=== PATIENT | female | born 1980 | race African-American/Black ===

== ENCOUNTER 2018-09-04 20:19 | Inpatient (IN) ==
[2018-09-04 21:07] LABS: BASO# 0.02 X1000 (0.0-0.2); BASO% 0.4 % (0.0-0.8); EOS# 0.02 X1000 (0.0-0.7); EOS% 0.4 % (0.0-10.0); HEMATOCRIT 35.8 % (37.0-47.0); HEMOGLOBIN 11.9 g/dL (12.0-16.0); IMM GRAN# 0.02 X1000 (0.0-0.04); IMM GRAN% 0.4 % (0.0-0.5); LYMPH% 17.7 % (20.5-51.1); MCH 32.5 PG (27-31); MCHC 33.2 g/dL (33-37); MCV 97.8 FL (81-99); MONO# 0.89 X1000 (0.11-0.59); MONO% 15.7 % (1.7-9.3); MPV 9.5 FL (7.4-10.4); NEUT# 3.71 X1000 (1.4-6.5); NEUT% 65.4 % (42.2-75.2); PLT 385 X1000 (130-400); RBC 3.66 XMIL (4.2-5.4); WBC 5.66 X1000 (4.8-10.8)
[2018-09-04 21:41] LABS: AGAP 19; ALB/GLOB RATIO 0.9; ALBUMIN 3.1 g/dL (3.5-5.0); ALKALINE PHOSPHATASE 163 U/L (32-104); BUN 5 mg/dL (8-22); CALCIUM 9.2 mg/dL (8.8-10.2); CHLORIDE 103 mmol/L (98-107); COSMO 287; CREATININE 0.5 mg/dL (0.5-0.9); ESTIMATED GFR > 60; GLUCOSE 126 mg/dL (70-104); GOT 76 U/L (10-30); GPT 79 U/L (10-36); SODIUM 145 mmol/L (136-145); TCO2 23 mmol/L (25-35); TOTAL BILIRUBIN 0.67 mg/dL (0.20-1.00); TOTAL PROTEIN 6.5 g/dL (6.3-8.3)
[2018-09-04 21:44] LABS: POTASSIUM 2.4 mmol/L (3.5-5.1)
[2018-09-04] MEDS ORDERED: NS + KCL 40 MEQ 1,000 ML IV ONE (21:47)
[2018-09-05 06:30] LABS: URINE SOURCE CATH
--- NOTE | 2018-09-05 06:38 | PROVIDER DOCUMENTATION ---
This chart was entered by Roseline Constantino Scribe, acting as scribe for Jonathan Payton DO. HPI-Psychological Disorder - General Chief Complaint: Altered Mental Status Stated Complaint: uti/ams Time Seen by Provider: 09/04/18 21:30 Source: patient Allergies/Adverse Reactions: Patient Allergies Allergy/AdvReac Type Severity Reaction Status Date / Time codeine AdvReac ITCHING Verified 05/23/18 10:30 Home Medications: Home Medication List Medication Instructions Recorded Confirmed Last Taken Type Gabapentin 300 mg PO DAILY 08/05/17 05/23/18 2 Days Ago History ~08/03/17 Hydrocodone/APAP 5 mg/325 mg 1 ea PO Q6H PRN PRN #6 tab 08/05/17 05/23/18 Unknown Rx [[place]-5] Lisinopril 10 mg PO DAILY 08/05/17 05/23/18 08/04/17 History Permethrin 5% Cream [Elimite 5% 2 applicatn TOP ONCE #2 tube 08/05/17 05/23/18 Unknown Rx Cream] Clobetasol Propionate/Emoll 60 gm TP BID #1 cream..g. 02/18/18 05/23/18 Unknown Rx [Clobetasol Emollient 0.05% Crm] Prednisone 10 mg PO BID #20 tab 05/23/18 Unknown Rx Cephalexin [Keflex] 500 mg PO BID #14 cap 08/30/18 Unknown Rx Ciprofloxacin [Cipro] 250 mg PO BID #10 tab 09/05/18 Unknown Rx - History of Present Illness-Psych Nature of Presenting Problem: 38 yo f presents w/mother w/co mother is main historian. pt is confused all the time. pt started yelling, became scared last night. pt is an alcoholic and gets alcohol from father and grandfather. pt quit walking last week and before she quit walking she was taking higher, small steps like a child. pt treated for similar symptoms before. pt sees at [facility] and hasn't been in 2 months. pt mother also states pt is getting worse. pt oriented to who she is, mother, and her age but not oriented to time and who president is. mother also states she was yelling at people in her house to move who weren't beside her. Timing: reports: still present Review of Systems - Adult - REVIEW OF SYSTEMS - ADULT Constitutional: reports: no symptoms reported Eyes: reports: no symptoms reported Ears, Nose, Mouth & Throat: reports: no symptoms reported Cardiovascular: reports: no symptoms reported Respiratory: reports: no symptoms reported Gastrointestinal: reports: no symptoms reported Genitourinary: reports: no symptoms reported Musculoskeletal: reports: no symptoms reported Integumentary: reports: no symptoms reported Neurological: reports: no symptoms reported Psychiatric: reports: see HPI, alcohol/drug dependence, other (ams/confusion). denies: panic attacks, suicidal thoughts Endocrine: reports: no symptoms reported Hematologic/Lymphatic: reports: no symptoms reported Allergic/Immunologic: reports: no symptoms reported All Other Systems: Reviewed and Negative Past History - Adult - PAST MEDICAL HISTORY-ADULT Review of Records: reports: Old Records Reviewed, Nursing Assessment Review, Medications Reviewed, Social history reviewed & non-contributory. Major Childhood Illnesses: reports: denies history Cardiovascular: reports: CHF, HTN Respiratory: reports: denies history Gastrointestinal: reports: denies history Obstetrical/Gynecological: reports: denies history Genitourinary: reports: denies history Musculoskeletal: reports: denies history Neurological: reports: denies history Endocrine/Immune: reports: denies history Other Conditions: reports: denies history - PRIOR SURGERIES/PROCEDURES Surgical/Procedure History: reports: BTL, - IMMUNIZATION STATUS Childhood Immunizations: See Nurse Assessment Flu Vaccine: See Nurse Assessment - FAMILY HISTORY Family History: reviewed, not pertinent - SOCIAL HISTORY Smoking: cigarettes, less than 1 pack/day Provider spent 3-5 mins advising pt. on dangers of tobacco.: Discussed manners to quit use, and f/u contacts for add'l counseling. Substance Use: alcohol Alcohol Use Frequency: every day Physical Exam-Psych Focus - Physical Exam-Psych Initial Vital Signs Reviewed: Yes Appearance: appropriate appearance, no apparent distress, impaired insight, impaired recent memory, impaired remote memory, slow to respond. negative: appropriate insight, no memory impairment, anxious, combative, disheveled Neurological: alert, normal mood/affect, calm, disoriented x 3. negative: oriented x 3, agitated, anxious, depressed affect Behavior/Eye Contact/Speech: cooperative, normal speech, avoids eye contact, decreased rate of speech. negative: good eye contact, refused to answer, threatening eye contact, increased rate of speech, belligerent Thoughts/Hallucinations: normal thought pattern, no apparent hallucination, auditory hallucinations. negative: flight of ideas, grandiose, incoherent, tactile hallucinations, visual hallucinations HENMT: normocephalic/atraumatic, moist mucous membranes, normal ENT inspection Neck: non-tender, full range of motion, supple, normal inspection Respiratory: chest non-tender, lungs clear, normal breath sounds Cardiovascular: normal peripheral pulses, regular rate, rhythm Abdominal Exam: normal bowel sounds, non tender, soft Lymphatic: no adenopathy Back Exam: normal inspection, no CVA tenderness, no vertebral tenderness Extremity: normal range of motion, non-tender, normal inspection Integumentary: normal color, normal turgor, warm/dry Progress - PLAN OF CARE/RESULTS Progress/Plan/Lab Results: Vital Signs - 8 hr 09/04/18 23:00 09/04/18 23:10 09/04/18 23:20 Pulse Rate 63 64 74 Respiratory Rate 14 12 15 O2 Sat by Pulse Oximetry 100 100 09/04/18 23:30 09/04/18 23:40 09/04/18 23:50 Pulse Rate 74 77 68 Respiratory Rate 13 19 16 O2 Sat by Pulse Oximetry 93 L 100 09/05/18 00:00 09/05/18 00:10 09/05/18 00:20 Pulse Rate 69 62 67 Respiratory Rate 17 12 14 O2 Sat by Pulse Oximetry 09/05/18 00:30 09/05/18 00:40 09/05/18 00:50 Pulse Rate 62 79 83 Respiratory Rate 19 14 16 O2 Sat by Pulse Oximetry 85 L 09/05/18 01:00 09/05/18 01:10 09/05/18 01:20 Pulse Rate 94 H 85 84 Respiratory Rate 20 21 26 H O2 Sat by Pulse Oximetry 09/05/18 01:30 09/05/18 01:40 09/05/18 01:57 Pulse Rate 79 84 76 Respiratory Rate 14 20 10 L O2 Sat by Pulse Oximetry 09/05/18 02:00 09/05/18 02:10 09/05/18 02:20 Pulse Rate 68 65 58 L Respiratory Rate 17 13 23 O2 Sat by Pulse Oximetry 100 100 09/05/18 02:30 09/05/18 02:40 09/05/18 02:50 Pulse Rate 71 63 61 Respiratory Rate 16 14 13 O2 Sat by Pulse Oximetry 100 09/05/18 03:00 09/05/18 03:10 09/05/18 03:20 Pulse Rate 65 90 61 Respiratory Rate 24 23 24 O2 Sat by Pulse Oximetry 100 99 09/05/18 03:30 09/05/18 03:40 09/05/18 03:50 Pulse Rate 66 65 53 L Respiratory Rate 23 16 15 O2 Sat by Pulse Oximetry 99 98 100 09/05/18 04:00 09/05/18 04:10 09/05/18 04:20 Pulse Rate 72 75 79 Respiratory Rate 19 20 O2 Sat by Pulse Oximetry 100 100 100 09/05/18 04:30 09/05/18 04:40 09/05/18 04:50 Pulse Rate 70 70 65 Respiratory Rate 15 23 14 O2 Sat by Pulse Oximetry 100 100 98 09/05/18 05:00 09/05/18 05:10 09/05/18 05:20 Pulse Rate 70 72 71 Respiratory Rate 17 15 15 O2 Sat by Pulse Oximetry 99 09/05/18 05:30 09/05/18 05:40 Pulse Rate 71 74 Respiratory Rate 16 23 O2 Sat by Pulse Oximetry 100 Laboratory Results - last 24 hr 09/04/18 09/04/18 09/04/18 20:50 20:50 20:50 WBC 5.66 RBC 3.66 L Hgb 11.9 L Hct 35.8 L MCV 97.8 MCH 32.5 H MCHC 33.2 RDW Std Deviation 14.0 Plt Count 385 MPV 9.5 Immature Gran % (Auto) 0.4 Neut % (Auto) 65.4 Lymph % (Auto) 17.7 L [place] % (Auto) 15.7 H Eos % (Auto) 0.4 Baso % (Auto) 0.4 Immature Gran # (Auto) 0.02 Neut # (Auto) 3.71 Lymph # (Auto) 1.00 L [place] # (Auto) 0.89 H Eos # (Auto) 0.02 Baso # (Auto) 0.02 Sodium 145 Potassium 2.4 L* Chloride 103 Carbon Dioxide 23 L Anion Gap 19 BUN 5 L Creatinine 0.5 Estimated GFR/1.73 m2 > 60 BUN/Creatinine Ratio 10 Glucose 126 H Calculated Osmolality 287 Calcium 9.2 Total Bilirubin 0.67 AST 76 H ALT 79 H Alkaline Phosphatase 163 H Ammonia 21 Total Protein 6.5 Albumin 3.1 L Globulin 3.4 Albumin/Globulin Ratio 0.9 Urine Source Urine Color Urine Turbidity Urine pH Ur Specific [place] Urine Protein Ur Glucose (Stick) Ur Ketones (Stick) Urine Blood Urine Nitrite Urine Bilirubin Urobilinogen Dipstick Urine Leukocytes Urine WBC (Auto) Urine RBC (Auto) U Epithel Cells (Auto) Urine Bacteria (Auto) Plasma/Serum Ethyl Alc 09/04/18 09/05/18 09/05/18 20:50 02:15 05:50 WBC RBC Hgb Hct MCV MCH MCHC RDW Std Deviation Plt Count MPV Immature Gran % (Auto) Neut % (Auto) Lymph % (Auto) [place] % (Auto) Eos % (Auto) Baso % (Auto) Immature Gran # (Auto) Neut # (Auto) Lymph # (Auto) [place] # (Auto) Eos # (Auto) Baso # (Auto) Sodium Potassium 2.8 L D 2.7 L Chloride Carbon Dioxide Anion Gap BUN Creatinine Estimated GFR/1.73 m2 BUN/Creatinine Ratio Glucose Calculated Osmolality Calcium Total Bilirubin AST ALT Alkaline Phosphatase Ammonia Total Protein Albumin Globulin Albumin/Globulin Ratio Urine Source Urine Color Urine Turbidity Urine pH Ur Specific [place] Urine Protein Ur Glucose (Stick) Ur Ketones (Stick) Urine Blood Urine Nitrite Urine Bilirubin Urobilinogen Dipstick Urine Leukocytes Urine WBC (Auto) Urine RBC (Auto) U Epithel Cells (Auto) Urine Bacteria (Auto) Plasma/Serum Ethyl Alc 09/05/18 06:00 WBC RBC Hgb Hct MCV MCH MCHC RDW Std Deviation Plt Count MPV Immature Gran % (Auto) Neut % (Auto) Lymph % (Auto) [place] % (Auto) Eos % (Auto) Baso % (Auto) Immature Gran # (Auto) Neut # (Auto) Lymph # (Auto) [place] # (Auto) Eos # (Auto) Baso # (Auto) Sodium Potassium Chloride Carbon Dioxide Anion Gap BUN Creatinine Estimated GFR/1.73 m2 BUN/Creatinine Ratio Glucose Calculated Osmolality Calcium Total Bilirubin AST ALT Alkaline Phosphatase Ammonia Total Protein Albumin Globulin Albumin/Globulin Ratio Urine Source CATH Urine Color ORANGE Urine Turbidity TURBID Urine pH 6.0 Ur Specific [place] 1.031 Urine Protein 100 A Ur Glucose (Stick) NEGATIVE Ur Ketones (Stick) 10 A Urine Blood NEGATIVE Urine Nitrite NEGATIVE Urine Bilirubin SMALL A Urobilinogen Dipstick 4 A Urine Leukocytes LARGE A Urine WBC (Auto) TNTC A Urine RBC (Auto) <10 U Epithel Cells (Auto) <10 Urine Bacteria (Auto) NEGATIVE Plasma/Serum Ethyl Alc Orders Category Date Time Status ALCOHOL BLOOD Stat Lab 09/04/18 20:50 Completed AMMONIA [CHEM] Stat Lab 09/04/18 20:50 Completed CBC WITH DIFF [HEME] Stat Lab 09/04/18 20:50 Completed COMPREHENSIVE METABOLIC PANEL [CHEM] Stat Lab 09/04/18 20:50 Completed POTASSIUM [CHEM] Stat Lab 09/05/18 02:15 Completed POTASSIUM [CHEM] Stat Lab 09/05/18 05:50 Completed UA NIMS W/REFLEX CULT [URINALYSIS] Stat Lab 09/05/18 06:00 Completed Ns + KCl 40 Meq 1,000 ml Med 09/04/18 21:47 Discontinued IV 250 mls/hr Potassium Chloride E.r. [Klor-Con] Med 09/05/18 06:54 Discontinued 40 meq PO NOW ONE EKG [EKG] Stat Ther 09/04/18 20:53 Ordered Result Diagrams: 09/04/18 20:50 09/05/18 05:50 - REASSESSMENT Reassessment #1 Time Reassessed: 23:23 Status: unchanged - EKG 1 Time of EKG reading by physician:: 21:46 EKG Read and Signed by:: Jonathan Payton EKG Interpretation (*Must complete 3 of following elements*): Abnormal Rate: 65 (poss anterior infarct, age undetermined) Rhythm: SR w/Short AR QRS: other (prolonged QT) AR Interval: shortened ST Wave: non-specific ST changes (ST&T wave abnormality, consider inferolateral ischemia) Departure - Departure Date of Disposition Decision: 09/05/18 Time of Disposition Decision: 06:55 DIAGNOSIS: UTI (urinary tract infection), Hypokalemia Disposition: HOME 01 Certified Medical Emergency: Emergent Condition: Stable Prescriptions: Ciprofloxacin [Cipro] 250 mg PO BID #10 tab Referrals and Follow-Ups: None,PCP [Primary Care Provider] - Discharge Education: Steps to Quit Smoking, [id number] - Critical Care Note This patient required my direct & personal management of CC.: No Attestation - Physician/ SILVESTRE Attestation Patient care was provided by Advanced Practice Provider:: No The physician spent face to face time with patient:: Yes Advanced Practice Provider documentation review:: Supervising physician onsite and consulted in the evaluation and care of this patient. The physician did have a face to face encounter with the patient. This chart was documented by the indicated scribe, (Roseline Constantino Scribe) and accurately reflects the services I performed and decisions made by , Jonathan Payton DO, as attested by the provider's signature.
[2018-09-05 06:46] LABS: BILIRUBIN URINE SMALL (NEGATIVE); BLOOD URINE NEGATIVE (NEGATIVE); COLOR ORANGE; GLUCOSE URINE NEGATIVE (NEGATIVE); KETONE URINE 10 mg/dL (NEGATIVE); LEUKOCYTES URINE LARGE (NEGATIVE); NITRITE URINE NEGATIVE (NEGATIVE); PROTEIN URINE 100 mg/dL (NEGATIVE); SP GRAVITY URINE 1.031; TURBIDITY URINE TURBID (CLEAR); UROBILINOGEN URINE 4 mg/dL (NORMAL)
[2018-09-05 06:48] LABS: UR EPITHELIAL CELLS <10 /HPF (<10); URINE BACTERIA NEGATIVE /HPF; URINE RBC <10 /HPF (<10); URINE WBC TNTC /HPF (<10)
[2018-09-05] MEDS ORDERED: KLOR-CON PO ONE (06:54)
[2018-09-05 09:44] LABS: UR AMPHETAMINES QUAL NONE DETECTED (NONE DETECT); UR BARBITUATES QUAL NONE DETECTED (NONE DETECT); UR BENZODIAZEPIN QUAL NONE DETECTED (NONE DETECT); UR CANNABINOIDS QUAL NONE DETECTED (NONE DETECT); UR COCAINE QUAL NONE DETECTED (NONE DETECT); UR METHADONE QUAL NONE DETECTED (NONE DETECT); UR OPIATES QUAL NONE DETECTED (NONE DETECT); UR OXYCODONE QUAL NONE DETECTED (NONE DETECT); UR PCP QUAL NONE DETECTED (NONE DETECT)
[2018-09-05] MEDS ORDERED: THIAMINE 500 MG in NS 50 ML IV ONE (10:59)
--- NOTE | 2018-09-05 11:12 | Diag Imaging Result Doc PS360 ---
EXAM: CHEST-PORTABLE INDICATION: ams TECHNIQUE: One view COMPARISON: 01/29/2018 FINDINGS: The lungs are grossly clear. There is no discrete pleural fluid collection or pneumothorax. The cardiac silhouette appears prominent, likely, at least in part, due to magnification from AP technique. Central vasculature is unremarkable. IMPRESSION: Mildly prominent cardiac silhouette. No definite acute pathology, otherwise. Electronically signed by Omega Constantino 09/05/2018 11:10 AM
[2018-09-05] MEDS ORDERED: NS 1,000 ML IV ONE (11:15)
--- NOTE | 2018-09-05 11:59 | HISTORY AND PHYSICAL ---
PRIMARY CARE PHYSICIAN: Unknown. CHIEF COMPLAINT: Altered mental status. HISTORY OF PRESENT ILLNESS: Ms. Billy is a 38-year-old female with a history of chronic alcohol dependence, who was brought in by her family for 2 weeks of progressively worsening mental status. Ms. Billy has had an episode like this last year at which time she went to [facility], per her family's report, at which time she had extensive workup, but no concrete diagnosis was found. She continued to drink after that discharge and drinks about a pint a day per her family's report; however, around 2 weeks ago, her mother took away her alcohol, and this coincided with her symptoms of encephalopathy. She has become increasingly confused, speaking nonsensically at times and at other times having paranoid delusions, picking at her skin and in the air. They said she has had more of an ataxic gait, and they brought her in today for evaluation. She was actually here last week for the same, was diagnosed with a urinary tract infection and sent home with antibiotics. They report symptoms have not improved at all with antibiotics. In the ER today, she had a head CT done which did not show anything acute. Her urine still shows UTI. There was trichomonas in her urine from last week's ER admission. She also has a mild elevated anion gap metabolic acidosis and elevation in her liver function tests. Her vitals are stable. Given the above, we will admit her for further treatment and evaluation. PAST MEDICAL HISTORY: 1. Chronic alcoholism. 2. Relapsing episodes of confusion and altered mental status. 3. Nicotine dependence. 4. Alcohol dependence. 5. Severe eczema. PAST SURGICAL HISTORY: She has had section, tubal ligation and right ear surgery as a child. SOCIAL HISTORY: She is not . She has 2 children. She is on disability. The family says she smokes around 3 cigarettes a day. Drinks at least a pint of liquor a day and has done so for the last couple of years. She started drinking when she was 19. They deny that she uses any type of illicit drugs. ALLERGIES: Codeine. HOME MEDICATIONS: Keflex from last week's ER admission. REVIEW OF SYSTEMS: Unable to obtain. PHYSICAL EXAMINATION: VITAL SIGNS: Blood pressure is 126/101, heart rate 87, respiratory rate 18, O2 saturation is 98% on room air. Temperature is 98.6. GENERAL: This is a chronically ill, disheveled and malnourished appearing 38-year-old female who appears older than stated age, lying in hospital bed in no acute distress. NEUROLOGICAL: The patient is clearly encephalopathic with confusion, ataxia and what appears to be oculomotor dysfunction, at times her eye rolling back in her head. She gazes for long periods at a time and will not follow pen light with her eyes. She does squeeze her hands and push her feet against resistance. There is overall generalized weakness at 4/5 muscle strength. She has clear deficiency in random alternating movements and fine motor movements. She is disoriented to everything except her name, she even thinks that her mother, who is sitting at the bedside, is her cousin. There is no facial droop or asymmetry. She does stick her tongue out. There is no smoothness of the tongue. Her shoulder shrug is 4/5 but equal bilaterally. She does have mild tremor of the hands in almost an asterixis type movement. HEENT: Head is atraumatic and normocephalic. Her pupils are pinpoint bilaterally. Her oral mucosa is moist. NECK: Trachea is midline. There is no JVD. CHEST: Diminished but clear to auscultation. CARDIOVASCULAR: Regular rate and rhythm. S1 and S2 noted. GASTROINTESTINAL: Soft, nondistended. She does have some grimace to deep palpation of the right upper quadrant. EXTREMITIES: There is no edema. Pulses are 1+ bilaterally. SKIN: In general, very dry, cracking, with multiple lesions about the body, mostly in the arms and legs, consistent with her history of eczema. PSYCHIATRIC: Inappropriate and withdrawn affect. DIAGNOSTIC DATA: Head CT is negative for acute process. Chest x-ray does not show anything acute. WBC is 5.66, hemoglobin 11.9, hematocrit 35.8, platelet count 385. Sodium is 145, potassium 2.7, chloride 103, CO2 is 23, anion gap is 19, BUN is 5, creatinine 0.5, glucose 126, calcium 9.2. Total bilirubin is 0.67, AST is 76, ALT is 79, alkaline phosphatase is 163. Ammonia is 21. Albumin 3.1. UA shows large leukocytes and TNTC WBCs. Toxicology is negative. Alcohol level is zero. ASSESSMENT AND PLAN: 1. Toxic metabolic encephalopathy. First concern would be for Wernicke encephalopathy. We will go ahead and give her 500 mg of IV thiamine now and do a comprehensive metabolic screening with thyroid function, B12, folate, HIV and hepatitis screen. Check an RPR and comprehensive iron studies. We will consult Neurology and possibly Psychiatry. If Wernicke encephalopathy is her diagnosis, we should start to see improvement in functioning with the administration of thiamine. We will continue with banana bag daily. 2. Hypokalemia. We will check magnesium and phosphorus, replace appropriately and check daily. 3. Urinary tract infection. Continue Rocephin. There was also trichomonas noted in the urine from last week. We will make sure and start her on Flagyl. 4. Alcohol and nicotine dependence. Will discuss cessation with her once she is more stable. 5. DVT prophylaxis with SCD TEDs. Further recommendations to follow. Dictated by RAE Ibrahim for Caroline Rivero MD cc: RAE Ibrahim MD I performed a face to face encounter on the patient. I reviewed all labs and imaging on the patient. I agree with the H&P as dictated. The patient has an extensive history of alcohol dependence. She currently is lethargic and unable to answer questions. Will admit her with a diagnosis of metabolic encephalopathy. Will proceed with the plan as outlined above. ADAND
[2018-09-05 12:03] LABS: INR 0.86; PROTIME 12.4 Seconds (11.0-16.0)
[2018-09-05 12:13] LABS: ACETONE SERUM NEGATIVE (NEGATIVE)
[2018-09-05 12:22] LABS: MAGNESIUM 1.8 mg/dL (1.5-2.7); PHOSPHORUS 3.2 mg/dL (2.7-4.5)
[2018-09-05 12:26] LABS: ALB/GLOB RATIO 0.9; ALBUMIN 2.9 g/dL (3.5-5.0); ALKALINE PHOSPHATASE 147 U/L (32-104); BUN 5 mg/dL (8-22); CALCIUM 8.8 mg/dL (8.8-10.2); CREATININE 0.5 mg/dL (0.5-0.9); ESTIMATED GFR > 60; GLUCOSE 98 mg/dL (70-104); GOT 87 U/L (10-30); GPT 80 U/L (10-36); IRON SATURATION 45 %; TCO2 24 mmol/L (25-35); TIBC 128 ug/dL; TOTAL BILIRUBIN 0.63 mg/dL (0.20-1.00); TOTAL IRON 58 ug/dL (49-151); UNBOUND IRON 70 ug/dL (112-346)
[2018-09-05 12:27] LABS: ACETAMINOPHEN < 1.2 ug/mL (10-30); SALICYLATES < 3.00 mg/dL (3-10)
[2018-09-05 12:33] LABS: CHLORIDE 108 mmol/L (98-107); POTASSIUM 2.6 mmol/L (3.5-5.1); SODIUM 147 mmol/L (136-145)
[2018-09-05 12:36] LABS: AGAP 15; COSMO 290
--- NOTE | 2018-09-05 12:39 | Diag Imaging Result Doc PS360 ---
EXAM: US ABDOMEN-COMPLETE INDICATION: etoh, eval liver COMPARISON: None. FINDINGS: The gallbladder appears normal with no stones, wall thickening, or pericholecystic fluid. The common bile duct is normal in diameter. Sonographic Louise's sign was reported to be negative. The echotexture of the liver is somewhat increased suggesting hepatic steatosis. No discrete hepatic mass is identified. Portal venous flow is hepatopetal. The pancreas is partially obscured. The visualized portion is unremarkable. The aorta and IVC are grossly unremarkable. The spleen is unremarkable. The kidneys are grossly unremarkable. IMPRESSION: Suggestion of hepatic steatosis. Unremarkable abdominal ultrasound, otherwise. Electronically signed by Omega Constantino 09/05/2018 12:37 PM
[2018-09-05 12:52] LABS: FREE T4 1.28 ng/dL (0.93-1.70); TSH 1.75 uIUmL (0.27-4.20)
[2018-09-05] MEDS ORDERED: 1/2 NS 1,000 ML IV SCH (13:00)
[2018-09-05] MEDS: FLAGYL 500 MG/NS 500 MG/100 ML IVPB IV SCH (14:03)
[2018-09-05] MEDS: ROCEPHIN 1 GM in NS 50 ML IV SCH (15:42)
[2018-09-05] MEDS ORDERED: POTASSIUM CHLORIDE 60 MEQ in NS 500 ML IV ONE (16:00)
[2018-09-05 18:09] LABS: HIV ANTIBODY SCREEN SEE COMMENTS
[2018-09-06] MEDS: FLAGYL 500 MG/NS 500 MG/100 ML IVPB IV SCH ×2 (00:42→10:38)
[2018-09-06 06:55] LABS: BASO# 0.01 X1000 (0.0-0.2); BASO% 0.2 % (0.0-0.8); EOS# 0.02 X1000 (0.0-0.7); EOS% 0.4 % (0.0-10.0); HEMATOCRIT 33.3 % (37.0-47.0); HEMOGLOBIN 10.8 g/dL (12.0-16.0); IMM GRAN# 0.02 X1000 (0.0-0.04); IMM GRAN% 0.4 % (0.0-0.5); LYMPH# 1.22 X1000 (1.2-3.4); LYMPH% 23.2 % (20.5-51.1); MCH 32.2 PG (27-31); MCHC 32.4 g/dL (33-37); MCV 99.4 FL (81-99); MONO# 0.67 X1000 (0.11-0.59); MONO% 12.7 % (1.7-9.3); MPV 9.8 FL (7.4-10.4); NEUT# 3.32 X1000 (1.4-6.5); NEUT% 63.1 % (42.2-75.2); PLT 317 X1000 (130-400); RBC 3.35 XMIL (4.2-5.4); RDW 14.2 % (11.5-14.5); WBC 5.26 X1000 (4.8-10.8)
[2018-09-06 07:22] LABS: AGAP 12; ALBUMIN 2.7 g/dL (3.5-5.0); ALKALINE PHOSPHATASE 134 U/L (32-104); BUN 3 mg/dL (8-22); CALCIUM 8.2 mg/dL (8.8-10.2); CHLORIDE 114 mmol/L (98-107); COSMO 293; CREATININE 0.5 mg/dL (0.5-0.9); ESTIMATED GFR > 60; GLUCOSE 66 mg/dL (70-104); GOT 106 U/L (10-30); GPT 87 U/L (10-36); POTASSIUM 3.3 mmol/L (3.5-5.1); SODIUM 150 mmol/L (136-145); TCO2 24 mmol/L (25-35); TOTAL BILIRUBIN 0.44 mg/dL (0.20-1.00); TOTAL PROTEIN 5.5 g/dL (6.3-8.3)
--- NOTE | 2018-09-06 08:22 | EKG Report ---
Test Performed on : 09/04/2018 9:16:40 PM Test Reason : AMS Blood Pressure : / mmHG Vent. Rate : 065 BPM Atrial Rate : 065 BPM P-R Int : 098 ms QRS Dur : 086 ms QT Int : 722 ms P-R-T Axes : 045 044 215 degrees QTc Int : 750 ms Sinus rhythm. with short MI Possible Anterior infarct (cited on or before 29-JAN-2018) ST & T wave abnormality, consider inferolateral ischemia Prolonged QT Abnormal ECG When compared with ECG of 30-AUG-2018 10:39, (Unconfirmed) ST now depressed in Lateral leads T wave inversion now evident in Inferior leads T wave inversion now evident in Lateral leads QT has lengthened Unconfirmed Result
[2018-09-06] MEDS ORDERED: POTASSIUM CHLORIDE 60 MEQ in NS 500 ML IV ONE (09:13)
[2018-09-06 09:15] LABS: HEPATITIS PROFILE ACUTE SEE COMMENTS
[2018-09-06] MEDS ORDERED: D5W 1,000 ML IV SCH ×2 (09:15→12:15)
[2018-09-06] MEDS: M.V.I.-12 10 ML, FOLIC ACID 1 MG, MAGNESIUM SULFATE 1 GM, THIAMINE 100 MG in NS 1,000 ML IV SCH (09:39)
[2018-09-06] MEDS: ROCEPHIN 1 GM in NS 50 ML IV SCH (10:38)
[2018-09-06] MEDS: ATIVAN IV PRN (11:03)
[2018-09-06] MEDS ORDERED: GEODON IM ONE (11:37)
[2018-09-06] MEDS ORDERED: STERILE WATER INJ. INJ ONE (11:37)
[2018-09-06] MEDS ORDERED: STERILE WATER INJ. ONE (11:44)
--- NOTE | 2018-09-06 12:22 | PROGRESS NOTE ---
DATE: 09/06/2018 SUBJECTIVE: The patient remains confused. She is unable to follow commands. She does move her arms and legs around nonpurposefully. OBJECTIVE: Vital Signs: Temperature 98.6 degrees, blood pressure 110/58, heart rate 52, respirations 15, O2 saturations 100% on room air. General: This is a young female lying in bed in no acute distress. Heart: S1, S2 normal. Regular rate and rhythm. Lungs: Equal air entry bilaterally. No crackles. No rales. Abdomen: Positive bowel sounds. Soft, nontender, nondistended. Extremities: No edema, no cyanosis. Neurologic: The patient is lethargic. She does move her arms and legs around and she does respond to painful stimuli. She does not follow commands. LABORATORIES: White blood cell count 5.2, hemoglobin 10, hematocrit 33, platelets 317,000. Sodium 150, potassium 3.3, chloride 114, CO2 24, BUN 3, creatinine 0.5, glucose 66, calcium 8.2, AST 106, ALT 87, alkaline phosphatase 134, albumin 2.7. ASSESSMENT AND PLAN: 1. Metabolic encephalopathy. There may be a component of alcohol withdrawal. We will order imaging of the patient's brain. We will also consult with a neurologist. 2. Hypokalemia. We will replace the patient's potassium. 3. Hepatic steatosis. Aware. This is likely secondary to the patient's alcohol abuse. 4. Severe protein calorie malnutrition. We will start the patient on Clinimix. 5. Possible urinary tract infection. We will await the urine culture results. In the meantime, continue on Rocephin. 6. Alcohol dependence. Aware. Continue on the banana bag infusion. 7. Gastrointestinal prophylaxis. We will start the patient on IV Protonix. 8. Deep vein thrombosis prophylaxis. We will start the patient on Lovenox. 9. Hypernatremia. We will start the patient on D5W. 10. Elevated liver function tests. This is likely secondary to the patient's alcohol usage. The hepatitis profile is negative. cc: Caroline Rivero MD [facility]
--- NOTE | 2018-09-06 16:21 | Diag Imaging Result Doc PS360 ---
EXAM: MRI BRAIN W/WO CONTRAST 09/06/2018 HISTORY: encephalopathy TECHNIQUE: Sagittal and axial T1, T2, FLAIR, DWI axial, post gadolinium-enhanced T1 axial with coronal reformation, coronal gradient echo. COMMENT: There are no previous MRI studies. There is hyperostosis frontalis interna. There is no evidence of restricted diffusion. There is no evidence of bleed mass effect or abnormal extra-axial fluid collection. There is a mucous retention cyst in the left maxillary sinus. There is no evidence of abnormal gadolinium enhancement. IMPRESSION: No evidence of acute intracranial disease. Electronically signed by Sarmad Alvarado 09/06/2018 4:19 PM
--- NOTE | 2018-09-06 16:27 | CONSULTATION ---
DATE OF CONSULTATION: 09/06/2018 REASON FOR CONSULT: Altered mental status. HISTORY OF PRESENT ILLNESS: This is a 38-year-old black female with a history of chronic alcoholism who was admitted yesterday with altered mental status. History is from chart review as the patient is unable to provide a history and there is no family currently available. Apparently she was brought in by family for 2 weeks of gradually worsening mental status changes. She has been speaking nonsensically at times and other times having delusions, picking at things and yelling out. She has had difficulty with walking, possibly an ataxic gait. She apparently was here last week with the same symptoms and was diagnosed with a urinary tract infection and sent home with antibiotics. Apparently she had an episode like this a year ago as well and was evaluated extensively at [facility] without a concrete diagnosis. She drinks a pint of liquor a day per report and has been doing this for quite a while. About a week or 2 ago her mom took away the alcohol. Family denied that the patient uses any illicit drugs. CT on arrival did not show acute findings. Urine remains suspicious for urinary tract infection. White count is normal. AST and ALT are elevated today, 106 and 87 respectively. Ammonia is 21. Toxicology panel was negative including salicylates and acetaminophen. Acetone level was negative. PAST MEDICAL HISTORY: Chronic alcoholism, eczema, , tubal ligation, right ear surgery. FAMILY HISTORY: Unobtainable. SOCIAL HISTORY: She is not . She has 2 children. She is on disability. She smokes cigarettes. She drinks at least a pint of liquor a day. She has been drinking for many years. The family denied use of any illicit drugs. ALLERGIES: Codeine. MEDICATIONS: Keflex in her home medications. Current medications include banana bag which includes 100 mg of thiamine daily, Clinimix, ceftriaxone, lorazepam 1 mg given at 11 o'clock today, Geodon 10 mg given at nearly noon today in preparation for MRI, thiamine 500 mg IV was given yesterday morning. REVIEW OF SYSTEMS: Unobtainable due to patient's mental status changes. PHYSICAL EXAMINATION: Vital Signs: She has been afebrile. Blood pressure 91/67 is the earliest documented, currently 110/58, pulse 50s to 80s, respiratory rate 15, 100% on room air. General: Ms. Billy is supine in bed with eyes closed, snoring. She does not arouse to loud voice. She arouses to noxious stimulation, grimaces, briefly opens her eyes, does not definitely regard. She easily drifts back to sleep. No commands. Neurologic: Pupils are nearly pinpoint but they are both reactive to bright light. Gaze is conjugate. There is horizontal eye movement with passive head turning. No consistent blink to threat. Corneals positive. Face symmetric with equal grimace. Tone is symmetric in the limbs. She is semi-purposeful in all 4 limbs. Reflexes are diminished, symmetric throughout. No clonus. Plantar response is flexor. She responds to noxious stimuli equally in all 4 extremities. She is moving semi-purposely all 4 extremities and equally without obvious focal deficit. No meningismus. DIAGNOSTICS: There has been no cranial imaging. Normal white count, PT/INR. Sodium of 150. BUN and creatinine are elevated. Blood sugars 60s to 120s. Calcium 8.2. Phosphorus and magnesium normal. AST 106, ALT 87, alkaline phosphatase 134. Ammonia normal 2 days ago. B12 is 1,275. Folate normal. TSH and free T4 normal. Urinalysis is suspicious for infection. Toxicology negative including negative salicylates and acetaminophen. Serum ethyl alcohol is 0. Acetone negative. RPR nonreactive. Hepatitis panel and HIV 1, 2 screen are negative. ASSESSMENT AND PLAN: Global encephalopathy, uncertain etiology. Elevated liver function tests may be contributing. Her history of alcoholism certainly is concerning and I would agree with the thiamine supplementation for possible Wernicke's encephalopathy. She needs cranial imaging and that has not been able to be performed as of yet, I believe due to some agitation. I have requested the nurse call down to see if they can try MRI again as the patient is quite sedated following the medication at this point. Her afebrile status with normal white count and absence of meningismus is reassuring. For now would continue correcting any underlying metabolic disturbances, work on getting imaging, and subsequently minimizing sedating medications as able. Continue frequent neuro checks. I will also order a routine EEG. Thank you for the consultation. ADDENDUM: spoke on the phone with patient's mother. Additional information provided: She said the patient has not consumed alcohol since 08/30, which is one week ago. She subsequently began having agitation, hallucinations and screaming out. DTs should also be a consideration and the patient should be managed appropriately. cc: Veronica Beltran MD MTDD
[2018-09-06] MEDS: CLINIMIX E 4.25%-5% SOLUTION 1,000 ML IV SCH (18:37)
[2018-09-06] MEDS ORDERED: D50W SYRINGE ONE (23:44)
[2018-09-06 23:47] LABS: ALLEN TEST YES; BE -4.2 mmoll (-3.0-3.0); BLOOD TYPE ARTERIAL; HCO3-(ACT) 21.6 mmoll (20.0-26.0); METHB 0.9 % (0.0-1.5); O2(CT) 13.5 mL/dL (15.0-23.0); O2HB 94.1 % (95.0-99.0); PCO2(98.6) 45 mmHg (35-45); PO2(98.6) 79 mmHg (60-100); SAMPLE BLOOD; SAO2 96.8 % (95.0-100.0); THB 10.1 g/dL (11.5-17.4)
[2018-09-06 23:48] LABS: MODALITY ROOM AIR
[2018-09-07 00:17] LABS: BASO# 0.01 X1000 (0.0-0.2); BASO% 0.3 % (0.0-0.8); EOS# 0.02 X1000 (0.0-0.7); EOS% 0.6 % (0.0-10.0); HEMATOCRIT 30.1 % (37.0-47.0); HEMOGLOBIN 9.7 g/dL (12.0-16.0); IMM GRAN# 0.03 X1000 (0.0-0.04); IMM GRAN% 0.8 % (0.0-0.5); LYMPH# 1.18 X1000 (1.2-3.4); LYMPH% 32.8 % (20.5-51.1); MCH 32.1 PG (27-31); MCHC 32.2 g/dL (33-37); MCV 99.7 FL (81-99); MONO# 0.28 X1000 (0.11-0.59); MONO% 7.8 % (1.7-9.3); MPV 9.4 FL (7.4-10.4); NEUT# 2.08 X1000 (1.4-6.5); NEUT% 57.7 % (42.2-75.2); PLT 249 X1000 (130-400); RBC 3.02 XMIL (4.2-5.4); RDW 14.3 % (11.5-14.5)
[2018-09-07 00:52] LABS: URINE SOURCE CATH
[2018-09-07 00:58] LABS: AGAP 11; ALB/GLOB RATIO 0.9; ALBUMIN 2.3 g/dL (3.5-5.0); ALKALINE PHOSPHATASE 116 U/L (32-104); BUN 2 mg/dL (8-22); CALCIUM 7.8 mg/dL (8.8-10.2); CHLORIDE 116 mmol/L (98-107); COSMO 294; CREATININE 0.4 mg/dL (0.5-0.9); ESTIMATED GFR > 60; GLUCOSE 159 mg/dL (70-104); GOT 71 U/L (10-30); GPT 77 U/L (10-36); POTASSIUM 3.3 mmol/L (3.5-5.1); SODIUM 148 mmol/L (136-145); TCO2 21 mmol/L (25-35); TOTAL BILIRUBIN 0.28 mg/dL (0.20-1.00); TOTAL PROTEIN 4.9 g/dL (6.3-8.3)
[2018-09-07 00:59] LABS: BILIRUBIN URINE NEGATIVE (NEGATIVE); BLOOD URINE NEGATIVE (NEGATIVE); COLOR YELLOW; GLUCOSE URINE NEGATIVE (NEGATIVE); KETONE URINE 10 mg/dL (NEGATIVE); LEUKOCYTES URINE TRACE (NEGATIVE); NITRITE URINE NEGATIVE (NEGATIVE); PROTEIN URINE TRACE mg/dL (NEGATIVE); SP GRAVITY URINE 1.018; TURBIDITY URINE CLEAR (CLEAR); UROBILINOGEN URINE NORMAL (NORMAL)
[2018-09-07 01:01] LABS: UR EPITHELIAL CELLS <10 /HPF (<10); URINE BACTERIA NEGATIVE /HPF; URINE RBC <10 /HPF (<10); URINE WBC <10 /HPF (<10)
[2018-09-07] MEDS ORDERED: NS 1,000 ML ONE (01:11)
[2018-09-07 01:13] LABS: INR 0.97; PROTIME 13.7 Seconds (11.0-16.0); PTT 31.1 Seconds (22.3-41.8)
[2018-09-07 01:13] LABS: UR AMPHETAMINES QUAL NONE DETECTED (NONE DETECT); UR BARBITUATES QUAL NONE DETECTED (NONE DETECT); UR BENZODIAZEPIN QUAL NONE DETECTED (NONE DETECT); UR CANNABINOIDS QUAL NONE DETECTED (NONE DETECT); UR COCAINE QUAL NONE DETECTED (NONE DETECT); UR METHADONE QUAL NONE DETECTED (NONE DETECT); UR OPIATES QUAL NONE DETECTED (NONE DETECT); UR OXYCODONE QUAL NONE DETECTED (NONE DETECT); UR PCP QUAL NONE DETECTED (NONE DETECT)
[2018-09-07] MEDS ORDERED: D5 1/2 NS 1,000 ML IV SCH (01:30)
[2018-09-07] MEDS: DOPAMINE 800 MG/D5W 800 MG/500 ML IV.SOLN IV SCH (02:02)
[2018-09-07] MEDS: POTASSIUM CHLORIDE 20 MEQ/SWI 20 MEQ/100 ML IVPB IV SCH ×2 (03:08→05:36)
[2018-09-07 06:06] LABS: BASO# 0.01 X1000 (0.0-0.2); BASO% 0.3 % (0.0-0.8); EOS# 0.01 X1000 (0.0-0.7); EOS% 0.3 % (0.0-10.0); HEMATOCRIT 34.1 % (37.0-47.0); HEMOGLOBIN 11.1 g/dL (12.0-16.0); IMM GRAN# 0.07 X1000 (0.0-0.04); IMM GRAN% 1.8 % (0.0-0.5); LYMPH# 1.07 X1000 (1.2-3.4); LYMPH% 27.1 % (20.5-51.1); MCH 32.4 PG (27-31); MCHC 32.6 g/dL (33-37); MCV 99.4 FL (81-99); MONO# 0.64 X1000 (0.11-0.59); MONO% 16.2 % (1.7-9.3); NEUT# 2.15 X1000 (1.4-6.5); NEUT% 54.3 % (42.2-75.2); PLT 296 X1000 (130-400); RBC 3.43 XMIL (4.2-5.4); RDW 14.4 % (11.5-14.5); WBC 3.95 X1000 (4.8-10.8)
[2018-09-07 06:42] LABS: AGAP 12; ALB/GLOB RATIO 0.9; ALBUMIN 2.5 g/dL (3.5-5.0); ALKALINE PHOSPHATASE 121 U/L (32-104); BUN 2 mg/dL (8-22); CALCIUM 7.7 mg/dL (8.8-10.2); CHLORIDE 119 mmol/L (98-107); COSMO 298; CREATININE 0.4 mg/dL (0.5-0.9); ESTIMATED GFR > 60; GLUCOSE 102 mg/dL (70-104); GOT 70 U/L (10-30); GPT 80 U/L (10-36); PHOSPHORUS 3.4 mg/dL (2.7-4.5); POTASSIUM 3.6 mmol/L (3.5-5.1); SODIUM 152 mmol/L (136-145); TCO2 21 mmol/L (25-35); TOTAL BILIRUBIN 0.38 mg/dL (0.20-1.00); TOTAL PROTEIN 5.2 g/dL (6.3-8.3)
--- NOTE | 2018-09-07 07:26 | EKG Report ---
Test Performed on : 09/06/2018 11:36:24 PM Test Reason : AMS Blood Pressure : / mmHG Vent. Rate : 056 BPM Atrial Rate : 056 BPM P-R Int : 146 ms QRS Dur : 098 ms QT Int : 716 ms P-R-T Axes : 058 052 243 degrees QTc Int : [address] & T wave abnormality, consider inferolateral ischemia Prolonged QT Abnormal ECG When compared with ECG of 04-SEP-2018 21:16, (Unconfirmed) HI interval has increased T wave inversion less evident in Lateral leads QT has shortened Unconfirmed Result
--- NOTE | 2018-09-07 08:49 | Diag Imaging Result Doc PS360 ---
EXAM: CHEST-PORTABLE HISTORY: AMS,Hypothermia,Hypotension TECHNIQUE: Portable chest single view COMPARISON: 09/05/2018 FINDINGS: Poor inspiratory effort. The heart is borderline mildly prominent. No pulmonary edema. No pneumonia. No pleural effusions identified. IMPRESSION: Mildly prominent heart Electronically signed by Taj Ortiz 09/07/2018 8:47 AM
[2018-09-07] MEDS: M.V.I.-12 10 ML, FOLIC ACID 1 MG, MAGNESIUM SULFATE 1 GM, THIAMINE 100 MG in NS 1,000 ML IV SCH (09:01)
[2018-09-07] MEDS: ROCEPHIN 1 GM in NS 50 ML IV SCH (10:50)
[2018-09-07] MEDS: FLAGYL 500 MG/NS 500 MG/100 ML IVPB IV SCH ×2 (10:50)
[2018-09-07 11:23] LABS: ALLEN TEST YES; BE -1.1 mmoll (-3.0-3.0); BLOOD TYPE ARTERIAL; O2(CT) 14.4 mL/dL (15.0-23.0); O2HB 95.2 % (95.0-99.0); PCO2(98.6) 38 mmHg (35-45); PO2(98.6) 80 mmHg (60-100); SAMPLE BLOOD; SAO2 98.1 % (95.0-100.0); THB 10.7 g/dL (11.5-17.4)
[2018-09-07 11:24] LABS: MODALITY ROOM AIR
--- NOTE | 2018-09-07 12:04 | PROGRESS NOTE ---
DATE: 09/07/2018 SUBJECTIVE: Overnight, the patient became hypothermic and hypotensive, and was transferred to the ICU. She has been placed on a rewarmer as well as pressor support. OBJECTIVE: Her temperature was 84 degrees Fahrenheit rectally overnight. Most recent blood pressure documented at 64/46. Pulse 80s. Respirations 17 and 99% on room air. Ms. Bilyl is supine in bed with eyes closed. She is seen to spontaneously turn her head side to side and moan at times. She grimaces to noxious stimuli. She does not follow commands. Pupils are pinpoint, and I do not see definite reactivity to bright light today. Gaze appears conjugate. There is some horizontal eye movement with passive head turning though she does have some resistance with passive eye opening. Face is symmetric with equal activation. She is moving her extremities spontaneously, and responds to noxious stimuli in the extremities. Plantar response is mute. No clonus. DIAGNOSTICS: MRI of the brain was personally reviewed. She has T2/FLAIR hyperintense signal within the dimitri Aqueductal region within the midbrain as well as the dorsum medial thalami. I reviewed this with Radiology today who agreed to this finding. LABORATORY: Labs reviewed in the chart. Sodium of 152, BUN and creatinine are elevated. Blood sugars 102 to 180. Calcium 7.7. AST and ALT 70 and 80 respectively. Ammonia 33. Urine toxicology was rechecked and again negative. Blood cultures are pending. Those were rechecked as well as a urine culture. ASSESSMENT AND PLAN: Global encephalopathy, high concern for advanced Wernicke's encephalopathy. Recommend to continue with high dose thiamine supplementation and orders have been updated in the system. Would suggest to discontinue D5, if it is not necessary. Continue supportive care, and continue evaluation for underlying infection and for alternate etiologies. She has an order for an EEG, and I will review that once available. cc: Veronica Beltran MD [facility]
[2018-09-07] MEDS: CLINIMIX E 4.25%-5% SOLUTION 1,000 ML IV SCH (12:20)
[2018-09-07] MEDS: THIAMINE 500 MG in NS 50 ML IV SCH ×2 (12:20→19:53)
[2018-09-07] MEDS: D5 NS 1,000 ML IV SCH ×2 (12:20→21:58)
--- NOTE | 2018-09-07 13:50 | PROGRESS NOTE ---
DATE: 09/07/2018 SUBJECTIVE: Ms. Billy was admitted on 09/05/2018, altered mental status. Has no primary care physician. A 38-year-old female, history of chronic alcohol dependence who was brought by her family, 2 weeks with progressively worsening mental status. Ms. Billy had an episode of this last year, at which time she went to [facility]. Per family report, she had extensive workup, but no concrete diagnosis was found. Continued to drink after discharge. Drinks about a pint a day per family. However, around 2 weeks ago, her mother took away her alcohol and this coincided with the symptoms of encephalopathy. She has been increasingly confused, speaking nonsensically at times, at times having paranoid delusions, picking at her skin and speaking into the air. She said she has more ataxic gait, and they brought her in for evaluation. She was actually here a week ago for the same, diagnosed with a urinary tract infection, sent home with antibiotics. They report symptoms have not improved at all with antibiotics. In the ER, she had a head CT, did not show anything acute. Urine still showed UTI or sediment. There was Trichomonas in the urine from last ER visit, mild elevated anion gap. PAST MEDICAL HISTORY: 1. Chronic alcoholism. 2. Relapsing episodes of confusion and altered mental status. 3. Nicotine dependence. 4. Alcohol dependence. 5. Severe eczema. PAST SURGICAL HISTORY: She has had a section, tubal ligation, right ear sort surgery as a child. ASSESSMENT AND PLAN: 1. Admitted with toxic metabolic encephalopathy. There is concern for Wernicke encephalopathy and so we are going to give her high dose of thiamine, I think 500 mg IV 3 times a day for 2 days, and then once a day dosing. We will continue to supplement her B12 and folate and then check to see about HIV and hepatitis status, check an RPR. Continue IV fluids. 2. Hypokalemia. We will supplement potassium and magnesium as needed. 3. Urinary tract sediment. Not sure if there is an infection but we are treating her. Also treating the Trichomonas with Flagyl, and she is on Rocephin. 4. Alcohol and nicotine dependence. She is apparently 2 weeks off of alcohol so may be through withdrawal status. REVIEW OF ORDERS: She is on Clinimix 50 mg a day. She is on D5 and I thought I would change that to D5 normal saline at 100 mL an hour. She is getting dopamine to help with blood pressure. Ativan 1 mg IV q.4 hours p.r.n., ceftriaxone 1 g IV q.24 hours, thiamine 500 mg IV q.8 hours for the next 2 days. LABORATORY DATA: Review of her recent lab, white count 3950, hematocrit 34, platelet count 296,000. Sodium 152, potassium 3.6, chloride 119, BUN 2, creatinine 0.4, blood sugars 96, 121, 132 and 82. AST was 70, ALT was 80, alkaline phosphatase 121, albumin was 2.5. cc: Demond Gardiner MD
--- NOTE | 2018-09-07 15:25 | EEG REPORT ---
DATE: 09/06/2018 EEG REPORT: REFERRING PHYSICIAN: DR. Veronica Beltran. RESEARCH ENVIRONMENTAL ENGINEER: June Duff. BACKGROUND INFORMATION/TECHNIQUE: This is a digitally recorded portable routine EEG with video history. A 38-year-old, female patient admitted with altered mental status. The EEG is ordered to detect evidence of seizures. MEDICATIONS: Include lorazepam and Geodon p.r.n. EEG FINDINGS: A posterior dominant alpha rhythm is not seen. The background consists of relatively low amplitude theta delta slowing. Spontaneous variability is fair. No definite persistent focal slowing. No epileptiform discharges. No seizures. Hyperventilation is not performed. Photic stimulation does not alter the record. No definite drowsiness patterns. Stage II sleep is not seen. EKG demonstrates regular RR intervals. IMPRESSION AND CLINICAL CORRELATION: Abnormal routine EEG due to moderately severe generalized slowing indicative of a moderately severe nonspecific encephalopathy. No epileptiform discharges or seizures seen on the current study. This does not rule out an underlying seizure disorder. Clinical correlation is recommended. cc: Veronica Beltran MD
[2018-09-07] MEDS: ATIVAN IV PRN (21:57)
[2018-09-08] MEDS: FLAGYL 500 MG/NS 500 MG/100 ML IVPB IV SCH ×2 (01:20→10:53)
[2018-09-08] MEDS ORDERED: OFIRMEV 1000 MG/ISOTONIC SOLN 1,000 MG/100 ML BOTTLE IV ONE (01:28)
[2018-09-08] MEDS: THIAMINE 500 MG in NS 50 ML IV SCH ×3 (04:55→20:01)
[2018-09-08] MEDS: CLINIMIX E 4.25%-5% SOLUTION 1,000 ML IV SCH (04:55)
[2018-09-08] MEDS: DOPAMINE 800 MG/D5W 800 MG/500 ML IV.SOLN IV SCH (04:55)
[2018-09-08] MEDS: M.V.I.-12 10 ML, FOLIC ACID 1 MG, MAGNESIUM SULFATE 1 GM, THIAMINE 100 MG in NS 1,000 ML IV SCH (09:55)
[2018-09-08] MEDS: ROCEPHIN 1 GM in NS 50 ML IV SCH (10:07)
--- NOTE | 2018-09-08 10:13 | PROGRESS NOTE ---
DATE: 09/08/2018 SUBJECTIVE: She seems to be waking up a little bit, opening her eyes, but predominantly sleeping. OBJECTIVE: Temperature 96.9, afebrile. Her temperature is still on the low side, pulse 110, respirations 20, blood pressure 129/97. Pupils appear to be equal and appear to be reactive to light. No distended neck veins. She is moving all extremities. Her blood sugar 121, 128, 98, 93. Lungs are clear anterolateral.Cardiovascular: Regular rhythm rate without murmur or S3. Abdomen is soft. Skin is warm and dry reviewed. DIAGNOSTIC STUDIES: I reviewed the lab from yesterday. White count 3950, hematocrit is 34, hemoglobin 11, platelets 296,000. Blood sugar 115, 115, 98, and 93. Her CK was 50. ASSESSMENT AND PLAN: 1. Global encephalopathy. High concern for advanced Wernicke's encephalopathy. We will continue high-dose thiamine supplementation and supplement the other B vitamins as well. We will discontinue the D5. Sugars seem to be up to normal values. Continue normal saline. Has an order for an EEG. 2. Hypokalemia. Supplement electrolytes as needed. We will recheck a Chem-22 tomorrow, actually get a basic metabolic profile today. 3. Urinary tract sediment. Not sure if it is an infection but treating for infection with Flagyl and Rocephin, and we cannot rule out at this point that she has some type of sepsis. 4. Alcohol and nicotine dependence, aware. 5. Looking at her orders, getting Clinimix at 50. I think we can increase that. She is on a little bit of dopamine, getting Flagyl 500 mg IV q.12 h., ceftriaxone 1 g q.24 h. Continue the thiamine 500 mg IV q.8 h. and then continue her MVI daily as well IV. cc: Demond Gardiner MD
[2018-09-08 10:16] LABS: AGAP 11; ALBUMIN 2.6 g/dL (3.5-5.0); ALKALINE PHOSPHATASE 108 U/L (32-104); BUN 4 mg/dL (8-22); CALCIUM 7.9 mg/dL (8.8-10.2); CHLORIDE 117 mmol/L (98-107); COSMO 292; CREATININE 0.5 mg/dL (0.5-0.9); ESTIMATED GFR > 60; GLUCOSE 84 mg/dL (70-104); GOT 41 U/L (10-30); GPT 58 U/L (10-36); SODIUM 149 mmol/L (136-145); TCO2 21 mmol/L (25-35); TOTAL BILIRUBIN 0.32 mg/dL (0.20-1.00); TOTAL PROTEIN 5.2 g/dL (6.3-8.3)
[2018-09-08] MEDS: D5 NS 1,000 ML IV SCH ×2 (13:13→20:01)
--- NOTE | 2018-09-08 13:41 | PROGRESS NOTE ---
DATE: 09/08/2018 SUBJECTIVE: Ms. Billy was admitted with altered mentation, poor responsiveness, question of ethanol withdrawal, and question of other substance exposure. She had some hypotension and hypothermia. EEG showed generalized slowing without epileptiform discharge. MRI showed mid brain and bilateral thalamic signal. Working diagnosis is likely Wernicke encephalopathy. She is receiving high dose thiamine and she has seemed to improve in the last 24 hours. PHYSICAL EXAMINATION: On exam now, she is awake, squirming, moving all limbs, not attentive to me, not following commands, not communicating, and not speaking. She has full lateral eye movement based on my observation. There is not a dysconjugate feature. Pupils are about 2-3 mm and both react to bright light. I believe pupils are improved compared to yesterday. Neck is supple. Limb tone is symmetric. IMPRESSION: Likely Wernicke encephalopathy, improved with thiamine. I do not have any urgent suggestion and nothing to add to Dr. Beltran's recommendations. Thanks for asking Neurology to see Ms. Billy. cc: MD KATHLEEN Gardner III
[2018-09-09] MEDS: FLAGYL 500 MG/NS 500 MG/100 ML IVPB IV SCH ×2 (00:01→12:03)
[2018-09-09] MEDS: ATIVAN IV PRN ×3 (00:02→22:02)
[2018-09-09] MEDS: CLINIMIX E 4.25%-5% SOLUTION 1,000 ML IV SCH ×3 (04:15→22:02)
[2018-09-09] MEDS: THIAMINE 500 MG in NS 50 ML IV SCH (04:15)
[2018-09-09 06:22] LABS: AGAP 11; ALB/GLOB RATIO 0.9; ALBUMIN 2.6 g/dL (3.5-5.0); ALKALINE PHOSPHATASE 117 U/L (32-104); BUN 4 mg/dL (8-22); CALCIUM 8.5 mg/dL (8.8-10.2); CHLORIDE 115 mmol/L (98-107); COSMO 296; CREATININE 0.5 mg/dL (0.5-0.9); ESTIMATED GFR > 60; GLUCOSE 77 mg/dL (70-104); GOT 40 U/L (10-30); GPT 54 U/L (10-36); POTASSIUM 3.6 mmol/L (3.5-5.1); SODIUM 151 mmol/L (136-145); TCO2 25 mmol/L (25-35); TOTAL BILIRUBIN 0.44 mg/dL (0.20-1.00); TOTAL PROTEIN 5.6 g/dL (6.3-8.3)
[2018-09-09] MEDS: D5 NS 1,000 ML IV SCH ×2 (07:52→17:06)
[2018-09-09] MEDS: M.V.I.-12 10 ML, FOLIC ACID 1 MG, MAGNESIUM SULFATE 1 GM, THIAMINE 100 MG in NS 1,000 ML IV SCH (09:49)
--- NOTE | 2018-09-09 10:23 | PROGRESS NOTE ---
DATE: 09/09/2018 This morning, Ms Apple is awake, alert, attentive. She followed simple commands consistently, including holding up the correct number of fingers. She has full lateral eye movement. I did not test her pupils today. Her speech is very dysarthric, difficult to understand, but I can understand some of what she says. Head and neck are unremarkable. IMPRESSION: Encephalopathy improved. No new suggestions from Neurology. Would continue with thiamin replacement and follow clinically. Thanks for asking us to see Ms. Apple. cc: MD KATHLEEN Gardner III
[2018-09-09] MEDS: ROCEPHIN 1 GM in NS 50 ML IV SCH (10:34)
--- NOTE | 2018-09-09 11:01 | PROGRESS NOTE ---
DATE: 09/09/2018 SUBJECTIVE: Ms. Billy is awake and her eyes are open, and seems to be more with it and more alert. I do not appreciate any nystagmus. She seems to be able to focus on her examiner, and seems to understand what I am saying. OBJECTIVE: Temperature 95.9 degrees, pulse 86, respirations 22, and blood pressure 114/83. Pupils are equal and round. Lungs are clear in all lung slater. Cardiovascular exam regular rhythm and rate without murmur or S3. Abdomen is soft. Skin is warm and dry. Urine output 8000 mL. ASSESSMENT AND PLAN: 1. Concerned about Wernicke's encephalopathy. She seems to be more awake, alert, and attentive following simple commands. She has full lateral eye movement. Her speech is very dysarthric, and will continue present thiamine supplement. EEG showed generalized slowing without epileptiform discharge. MRI showed mid brain bilateral thalamic signal. Diagnosis likely Wernicke's encephalopathy receiving high-dose thiamine. We will continue. 2. Hypokalemia. Continue to follow electrolytes and supplement as needed. Electrolytes this morning look good. Sodium 151, potassium 3.6, chloride 105 BUN 4, and creatinine 0.5. 3. Elevation of liver enzymes. AST 40, ALT 54, alkaline phosphatase 117. These have come down a little bit. We are treating her for questionable urinary tract infection, had urinary sediment, and we were giving her treatment for alcohol nicotine dependence. She seems clinically to have improved which is encouraging. 4. Nutrition. She is not eating much at all the last couple of days hardly nothing. Still on a little bit of dopamine. Hopefully, we can wean her off of that. We are giving her ceftriaxone 1 g q.24 hours. She is getting Clinimix at 50 mL an hour, which I think we can go up on. cc: Demond Gardiner MD
[2018-09-10] MEDS: FLAGYL 500 MG/NS 500 MG/100 ML IVPB IV SCH (00:17)
[2018-09-10] MEDS ORDERED: PHENOBARBITAL IV ONE (02:00)
[2018-09-10] MEDS: D5 NS 1,000 ML IV SCH ×3 (02:20→21:45)
[2018-09-10] MEDS: HYDROCORTISONE 1% CREAM TOP SCH ×2 (02:22→09:03)
[2018-09-10] MEDS: NS IV SCH (05:10)
[2018-09-10] MEDS: THIAMINE IV SCH (05:10)
[2018-09-10] MEDS: M.V.I.-12 10 ML, FOLIC ACID 1 MG, MAGNESIUM SULFATE 1 GM, THIAMINE 100 MG in NS 1,000 ML IV SCH (09:02)
--- NOTE | 2018-09-10 10:24 | PROGRESS NOTE ---
DATE: 09/10/2018 SUBJECTIVE: Ms. Billy is awake. Her eyes are open. She follows simple commands. She seems to be comfortable. She is moving all extremities, remains afebrile. OBJECTIVE: Vital Signs: Temperature 97.7 degrees, pulse 70, respirations 16, blood pressure 139/98. Eyes: Pupils are equal and round. Lungs: Clear in all lung slater. Cardiovascular exam: Regular rhythm and rate without murmur or S3. Abdomen: Soft. Skin: Warm and dry. : Urine output is 1400 mL. Blood sugar 76, 93, 95 and 105. ASSESSMENT AND PLAN: 1. Wernicke encephalopathy suspected. Continue high-dose thiamine. Seems to be clinically improved. 2. Hypokalemia, which is supplemented. Continue to follow her electrolytes. 3. Mild elevation of transaminases and these seem to be improving. Suspect alcoholic hepatitis. 4. Nutrition. We will see if maybe we can swallow and maybe try some liquids. She is on Clinimix 80 mg right now. She has been getting the Flagyl 500 mg intravenous every 12 hours, and I think we can stop that. Both of these have been going since the -. I do not see any evidence of ongoing infection. Cultures negative. cc: Demond Gardiner MD
[2018-09-10] MEDS: CLINIMIX E 4.25%-5% SOLUTION 1,000 ML IV SCH (11:38)
--- NOTE | 2018-09-10 12:01 | PROGRESS NOTE ---
DATE: 09/10/2018 Ms. Billy continues to improve day by day. This morning she is sitting up being fed, alert and attentive, chewing and swallowing. She followed simple commands. She used her right arm a little bit more purposefully and consistently than the left, but she definitely did use her left arm voluntarily. She may have a slight right gaze preference but she has full eye movement and she turns her head left and right spontaneously. Gaze is conjugate. Neck is supple. No new thoughts or new suggestions from Neurology today. Thanks for asking us to see Ms. Billy. cc: Rubin Hannah III, MD
[2018-09-10] MEDS: ATIVAN IV PRN ×2 (14:18→21:45)
[2018-09-11] MEDS: CLINIMIX E 4.25%-5% SOLUTION 1,000 ML IV SCH ×3 (00:38→23:48)
[2018-09-11] MEDS: ATIVAN IV PRN ×3 (01:57→22:23)
[2018-09-11] MEDS: THIAMINE IV SCH (05:08)
[2018-09-11] MEDS: NS IV SCH (05:08)
[2018-09-11] MEDS: D5 NS 1,000 ML IV SCH ×2 (07:57→17:09)
[2018-09-11] MEDS: M.V.I.-12 10 ML, FOLIC ACID 1 MG, MAGNESIUM SULFATE 1 GM, THIAMINE 100 MG in NS 1,000 ML IV SCH (08:00)
[2018-09-11] MEDS: HYDROCORTISONE 1% CREAM TOP SCH (08:03)
--- NOTE | 2018-09-11 10:14 | PROGRESS NOTE ---
DATE: 09/11/2018 SUBJECTIVE: Ms. Billy is still in restraints but she was comfortable and sleeping. She did arouse to touch and to voice. She has some flacking and irritation in her scalp and there is question of whether there was lice but the nurses looked at it a little closer and it appears to be more consistent with dry psoriasis or even fungal irritation. OBJECTIVE: She remains afebrile, temperature 93.2, pulse 70, respirations 15, blood pressure 133/89. Eyes: Pupils are equal. Lungs: Lungs are clear in all lung slater. Cardiovascular exam: Regular rhythm and rate without murmur or S3. Abdomen: Soft. Skin: Warm and dry. Blood sugar is 104, 97, and 107. ASSESSMENT AND PLAN: 1. Improves a little bit everyday, sitting up and able to eat, chewing, and swallowing, able to follow simple commands and more purposeful movements, still requiring restraints but is improving. 2. Electrolytes look okay. 3. Mild elevation of transaminases. Will recheck her liver function tests again in the morning. AST last was 48, ALT 54, alkaline phosphatase was 117. 4. Blood sugars appear to be in normal range. So continue her Clinimix at 80 mg a day. She is on D5 normal saline at 100 mL/hour and Ativan 1 mg IV q.4 hours p.r.n., thiamine 250 mg IV daily, and will continue present regimen. cc: Demond Gardiner MD
[2018-09-12] MEDS: CLINIMIX E 4.25%-5% SOLUTION 1,000 ML IV SCH ×2 (01:03→13:31)
[2018-09-12] MEDS: THIAMINE IV SCH (05:22)
[2018-09-12] MEDS: NS IV SCH (05:22)
[2018-09-12] MEDS: D5 NS 1,000 ML IV SCH ×2 (05:22→20:38)
[2018-09-12] MEDS: HYDROCORTISONE 1% CREAM TOP SCH (08:23)
[2018-09-12] MEDS: M.V.I.-12 10 ML, FOLIC ACID 1 MG, MAGNESIUM SULFATE 1 GM, THIAMINE 100 MG in NS 1,000 ML IV SCH (08:24)
[2018-09-12] MEDS ORDERED: CATAPRES-TTS-2 TD PRN (10:19)
[2018-09-12] MEDS: ATIVAN IV PRN ×2 (12:06→17:12)
--- NOTE | 2018-09-12 13:31 | PROGRESS NOTE ---
DATE: 09/12/2018 SUBJECTIVE: Ms. Billy is awake and she is talkative and eyes are open. Seems more alert. She is still requiring restraints. OBJECTIVE: Vitals: She remains afebrile, temperature 98.1 degrees, pulse 104, respirations 19, blood pressure 136/102. HEENT: Pupils are equal. Neck: No distended neck veins. Lungs: Clear in all lung slater anterolateral. Cardiovascular: Regular rhythm and rate without murmur or S3. Abdomen: Soft. Skin: Warm and dry. URINE OUTPUT: 4800 mL. ASSESSMENT AND PLAN: 1. She seems more alert and active, chewing and swallowing, following simple commands. Understands what you are saying, still some confusion and still requiring restraints to keep her from pulling IVs out. She may have a slight right gaze preference, but full eye movement and gaze seems to be conjugate. We are treating her for Wernicke encephalopathy. Continue her thiamine. 2. Long history of alcohol use. 3. Mild elevation of transaminases. I am going to recheck her liver functions, electrolytes, CBC and magnesium in the morning. Looking back, we have checked her TS and T4 and they were normal. cc: Demond Gardiner MD
[2018-09-13] MEDS: D5 NS 1,000 ML IV SCH ×2 (00:37→09:13)
[2018-09-13] MEDS: CLINIMIX E 4.25%-5% SOLUTION 1,000 ML IV SCH ×2 (01:31→13:27)
[2018-09-13] MEDS: THIAMINE IV SCH (05:30)
[2018-09-13] MEDS: NS IV SCH (05:30)
[2018-09-13 05:52] LABS: BASO# 0.08 X1000 (0.0-0.2); BASO% 1.5 % (0.0-0.8); EOS# 0.25 X1000 (0.0-0.7); EOS% 4.8 % (0.0-10.0); HEMATOCRIT 28.7 % (37.0-47.0); HEMOGLOBIN 9.3 g/dL (12.0-16.0); IMM GRAN# 0.04 X1000 (0.0-0.04); IMM GRAN% 0.8 % (0.0-0.5); LYMPH# 1.73 X1000 (1.2-3.4); LYMPH% 33.2 % (20.5-51.1); MCH 32.9 PG (27-31); MCHC 32.4 g/dL (33-37); MCV 101.4 FL (81-99); MONO# 0.51 X1000 (0.11-0.59); MONO% 9.8 % (1.7-9.3); MPV 10.3 FL (7.4-10.4); NEUT% 49.9 % (42.2-75.2); PLT 194 X1000 (130-400); RBC 2.83 XMIL (4.2-5.4); RDW 15.2 % (11.5-14.5); WBC 5.21 X1000 (4.8-10.8)
[2018-09-13 07:17] LABS: AGAP 14; ALB/GLOB RATIO 1.2; ALBUMIN 2.7 g/dL (3.5-5.0); ALKALINE PHOSPHATASE 95 U/L (32-104); BUN 7 mg/dL (8-22); CALCIUM 8.8 mg/dL (8.8-10.2); CHLORIDE 114 mmol/L (98-107); COSMO 298; CREATININE 0.4 mg/dL (0.5-0.9); ESTIMATED GFR > 60; GLUCOSE 93 mg/dL (70-104); GOT 43 U/L (10-30); GPT 35 U/L (10-36); POTASSIUM 3.5 mmol/L (3.5-5.1); SODIUM 151 mmol/L (136-145); TCO2 23 mmol/L (25-35); TOTAL BILIRUBIN 0.36 mg/dL (0.20-1.00)
[2018-09-13] MEDS: M.V.I.-12 10 ML, FOLIC ACID 1 MG, MAGNESIUM SULFATE 1 GM, THIAMINE 100 MG in NS 1,000 ML IV SCH (08:47)
[2018-09-13] MEDS: ATIVAN IV PRN (12:44)
[2018-09-13] MEDS: VASOTEC IV SCH ×2 (13:23→20:16)
--- NOTE | 2018-09-13 13:31 | PROGRESS NOTE ---
DATE: 09/13/2018 SUBJECTIVE: Ms. Billy is awake. She is still requiring restraint. She seems to hear you and follow you and track you with her eyes and understands what you are saying. Still pretty lethargic. OBJECTIVE: Vital Signs: Temperature 96.3 degrees, pulse 116, respirations 23, blood pressure 170/39. HEENT: Pupils are equal. Lungs: Clear in all lung slater. Cardiovascular: Regular rhythm and rate without murmur or S3. Abdomen: Soft. Skin: Warm and dry. Urine output is 8200 mL. ASSESSMENT AND PLAN: 1. Questionable Wernicke's encephalopathy. Continue to give her thiamine and supplement electrolytes. We will reduce her fluids and see how we do with swallowing and p.o. intake. Still a good deal of delirium and requires restraints to keep her from pulling IVs out. 2. Electrolytes and renal function looked good. Transaminases have come down. AST is 43, ALT is 35. Ammonia level is only 36, bilirubin is 0.36. 3. Alcoholic hepatitis, which is improved, and withdrawal from alcohol has completed. 4. Nutrition. We need to encourage p.o. intake and I am not sure how much improvement we are going to have from here as far as her cognitive function. We will continue the thiamine, multivitamin, and we are giving her Clinimix for nutrition. As far as what we are going to do long-term and placement, I am not sure. I have to discuss this with social workers. We will continue to press ahead. LABORATORY DATA: On review of her lab, her thyroid functions were okay and liver enzymes have come down. All those are encouraging. Hopefully, she will have some more reversible improvement in regards to her encephalopathy. Blood pressure is climbing up so I had added Catapres patch. We will go ahead and try and give her Apresoline. I think with her renal function, she should be able to tolerate an SHERLYN inhibitor, so we will try that. I will give her 10 mg of lisinopril twice a day and see if that will help. cc: Demond Gardiner MD
--- NOTE | 2018-09-13 14:15 | CONSULTATION ---
09/13/2018 This is a progress note, not initial consultation. SUBJECTIVE: No major overnight events. The patient has become more awake since I last saw her. She is agitated, trying to get out of bed. She just received 1 mg of Ativan within a few minutes of my encounter with her today. OBJECTIVE: Afebrile, her temperature is 96 degrees Fahrenheit, blood pressures recent 140s to 170 systolic over low to mid 100s diastolic, pulse low 100s, respirations 18, 95% on 2 L nasal cannula. Ms. Billy is supine in bed. She was seen initially with legs off of the bed, trying to get out of bed. She is in bilateral soft wrist restraints. She has just been given lorazepam within minutes of my encounter. Her pupils are miotic, 2 mm each eye, and reactive to bright light. She aggressively resist passive eye opening. Gaze appeared to be conjugate. There was some horizontal eye movement with passive head turning. Face symmetric with equal grimace. She does not follow commands and does not speak to me today. She was seen to spontaneously move her extremities without obvious focal deficit. She responds to mild noxious stimuli in all extremities. DIAGNOSTIC STUDIES: Normal white count. Sodium of 151, BUN 7, creatinine 0.4, AST 43, ALT 35, blood sugars have been pretty normal. ASSESSMENT AND PLAN: Remains global encephalopathy, highly suspicious for Wernicke's encephalopathy. Other etiologies, including toxic ingestion, are not completely ruled out. She has had notable improvement with the high-dose thiamin administration. Continue thiamin. I would continue treating other medical conditions and following her clinically. At some point, we will need to repeat MRI of the brain for re- evaluation. cc: Veronica Beltran MD [facility]
[2018-09-14] MEDS: D5 NS 1,000 ML IV SCH ×3 (00:02→06:26)
[2018-09-14] MEDS: ATIVAN IV PRN (04:17)
[2018-09-14] MEDS: CLINIMIX E 4.25%-5% SOLUTION 1,000 ML IV SCH ×2 (04:17→16:14)
[2018-09-14] MEDS: VASOTEC IV SCH ×3 (05:26→20:33)
[2018-09-14] MEDS: THIAMINE IV SCH (05:37)
[2018-09-14] MEDS: NS IV SCH (05:37)
[2018-09-14] MEDS: M.V.I.-12 10 ML, FOLIC ACID 1 MG, MAGNESIUM SULFATE 1 GM, THIAMINE 100 MG in NS 1,000 ML IV SCH (09:29)
[2018-09-14] MEDS ORDERED: M.V.I.-12 10 ML, FOLIC ACID 1 MG, MAGNESIUM SULFATE 1 GM, THIAMINE 100 MG in NS 1,000 ML IV SCH (12:05)
--- NOTE | 2018-09-14 12:38 | PROGRESS NOTE ---
DATE: 09/14/2018 SUBJECTIVE: The patient has no focal complaints but she is very altered. She is more awake from what I understand. She is responsive. She is opening her eyes and communicating to some degree, although she is completely disoriented and still fairly out of it. She has been 2 weeks out of alcohol before admission but got very encephalopathic. PHYSICAL EXAMINATION: Current Vital Signs: Blood pressure 164/93, heart rate 103, respiratory rate of 15, temperature has been low. She is on a Leonid Hugger. Cardiovascular: Regular rate and rhythm. Pulmonary: Bilateral breath sounds clear to auscultation. GI: Soft, nontender, nondistended. Bowel sounds were positive. LABORATORY DATA: Her hemoglobin and hematocrit are 9 and 28 with a high MCV and she is folate deficient, that is established. I do not have electrolytes today. Her last sodium was 151. Sugars have been in the 80s. Magnesium is 1.8. PROBLEM LIST: 1. Wernicke's encephalopathy versus other acute toxic encephalopathy. She is on thiamine. We will continue supportive care. Slowly, she seems to be improving. Neurology is on board. I appreciate their evaluation and recommendations. 2. Hypernatremia, which may be related to fluid restriction, free water restriction. I am going to repeat her levels and follow closely. 3. Alcoholic hepatitis. That seems to be stable. 4. Severe protein-calorie malnutrition. She is starting to eat today so we will adjust her medicines accordingly. 5. Hypertension. She is on intravenous Vasotec. I think we can probably work on transitioning her to oral. 6. Diarrhea with Clostridium difficile antigen positivity. She is not currently on any antibiotics. I will go ahead and start vancomycin and follow. DISPOSITION: Pending improvement in her clinical status. cc: Suresh Kang MD
[2018-09-14] MEDS: D5W 1,000 ML IV SCH (13:02)
[2018-09-14] MEDS: VANCOCIN PO SCH ×2 (13:03→20:33)
[2018-09-14] MEDS: PROTONIX IV SCH (13:03)
[2018-09-14] MEDS: SODIUM CHLORIDE 0.9% INJ SCH (13:03)
[2018-09-14 13:20] LABS: AGAP 12; BUN 7 mg/dL (8-22); CALCIUM 8.9 mg/dL (8.8-10.2); CHLORIDE 109 mmol/L (98-107); COSMO 288; CREATININE 0.5 mg/dL (0.5-0.9); ESTIMATED GFR > 60; GLUCOSE 117 mg/dL (70-104); SODIUM 145 mmol/L (136-145); TCO2 24 mmol/L (25-35)
[2018-09-14] MEDS ORDERED: VANCOCIN PO SCH (14:00)
--- NOTE | 2018-09-14 14:43 | PROGRESS NOTE ---
DATE: 09/14/2018 SUBJECTIVE: No major overnight events. The patient is more awake and alert than I have seen her. OBJECTIVE: Vital Signs: Current temperature 96.7 degrees, blood pressure 130s to 160s systolic, pulse low 100s, respirations 13, 95% on 2 L nasal cannula. Exam: Ms. Billy is supine in bed. She is awake and much more alert than I have seen her. Her eyes were open. She regards as I enter the room. She tracks. She states her full name and knows she is at [facility]. She said 1919 for the year. She said Kaden Handy for the president. She followed some simple commands, not complex ones. Pupils are 2 mm OD and very slightly larger OS. Both with reactivity to bright light. Gaze is conjugate and forward. I could not get her to look down or up very well, but she had good horizontal eye movements. I did not visualize nystagmus. She blinks to threat. She can hear. Face symmetric with equal activation. She would not protrude tongue. 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 She moves her extremities spontaneously and has bilateral soft wrist restraints. No obvious focal deficit there. Plantar response is flexor bilaterally. No clonus. DIAGNOSTICS: Normal sodium today. BUN 7, creatinine 0.5. Blood sugars look good. ASSESSMENT AND PLAN: Global encephalopathy, highly suspicious for Wernicke's encephalopathy given presentation and recent MRI findings. Other etiologies are not completely excluded. She has had notable improvement with high-dose thiamine administration and has completed that course. Today is the best I have seen her, which is reassuring. Agree that she would benefit from continued thiamine supplementation and I see that 100 mg IV daily has been ordered, and that is reasonable to continue while here. Eventually she will need to have oral supplementation that she can continue after discharge. We will need to repeat her MRI of the brain for re- evaluation as her symptoms improve. cc: Veronica Beltran MD [facility]
[2018-09-14] MEDS: HALDOL IV PRN ×2 (16:00→20:33)
[2018-09-14] MEDS ORDERED: VITAMIN B-1 PO SCH (17:00)
[2018-09-15] MEDS: CLINIMIX E 4.25%-5% SOLUTION 1,000 ML IV SCH ×2 (03:01→17:52)
[2018-09-15] MEDS: VANCOCIN PO SCH ×5 (03:02→21:39)
[2018-09-15] MEDS: D5W 1,000 ML IV SCH ×2 (03:02→17:53)
[2018-09-15] MEDS: VASOTEC IV SCH ×3 (04:48→20:34)
[2018-09-15] MEDS: M V I IV SCH (06:05)
[2018-09-15] MEDS: D5W IV SCH (06:05)
[2018-09-15] MEDS: FOLIC ACID IV SCH (06:05)
[2018-09-15] MEDS: THIAMINE IV SCH (06:05)
[2018-09-15 06:40] LABS: BASO# 0.05 X1000 (0.0-0.2); BASO% 0.6 % (0.0-0.8); EOS# 0.38 X1000 (0.0-0.7); EOS% 4.7 % (0.0-10.0); HEMATOCRIT 30.8 % (37.0-47.0); HEMOGLOBIN 9.9 g/dL (12.0-16.0); IMM GRAN# 0.03 X1000 (0.0-0.04); IMM GRAN% 0.4 % (0.0-0.5); LYMPH# 1.24 X1000 (1.2-3.4); LYMPH% 15.2 % (20.5-51.1); MCH 32.2 PG (27-31); MCHC 32.1 g/dL (33-37); MCV 100.3 FL (81-99); MONO# 0.71 X1000 (0.11-0.59); MONO% 8.7 % (1.7-9.3); NEUT# 5.73 X1000 (1.4-6.5); NEUT% 70.4 % (42.2-75.2); PLT 221 X1000 (130-400); RBC 3.07 XMIL (4.2-5.4); RDW 15.6 % (11.5-14.5); WBC 8.14 X1000 (4.8-10.8)
[2018-09-15] MEDS ORDERED: BENADRYL PO PRN (08:33)
[2018-09-15] MEDS: HALDOL IV PRN ×2 (09:47→12:03)
[2018-09-15 09:51] LABS: AGAP 14; BUN 6 mg/dL (8-22); CALCIUM 9.2 mg/dL (8.8-10.2); CHLORIDE 105 mmol/L (98-107); COSMO 282; CREATININE 0.5 mg/dL (0.5-0.9); ESTIMATED GFR > 60; GLUCOSE 87 mg/dL (70-104); PHOSPHORUS 4.5 mg/dL (2.7-4.5); POTASSIUM 3.7 mmol/L (3.5-5.1); SODIUM 143 mmol/L (136-145); TCO2 24 mmol/L (25-35)
--- NOTE | 2018-09-15 10:33 | PROGRESS NOTE ---
DATE: 09/15/2018 SUBJECTIVE: The patient is alert. She complains of itching secondary to her eczema. She answers questions although not appropriate. OBJECTIVE: Vital signs: Blood pressure is 146/79 with a heart rate of 83, respirations are 16, temperature is 97.2 degrees with O2 saturation 97 to 100 percent on 2 L nasal cannula. Eyes: Pupils are 2 mm, reactive to light. She has good horizontal eye movement. No nystagmus is noted. She does not follow commands for vertebra vertical movement. HEENT: Head is normocephalic, atraumatic. Mucous membranes are moist. Neck: Is supple trachea midline. Cardiovascular: Regular rate and rhythm. S1 and S2 are appreciated. She has no murmur. She has no lower extremity edema. Peripheral pulses are palpable x4 extremities. Pulmonary: Breath sounds arediminished in the bases. Chest rises and falls symmetric with respiration. She has no increased work of breathing. Chest wall is nontender to palpation. Gastrointestinal: Abdomen is soft, nontender, nondistended with bowel sounds in all 4 quadrants. : Jackson catheter is draining clear yellow urine to bedside bag. She has no CVA tenderness. Skin is warm and dry. Neurologic: She is alert. She is oriented to person and place. She does follow simple commands with gross movement. She will blink to visual threat. Smile is equal. She would not protrude her tongue nor shrug her shoulders. 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 She does withdraw to pain x4 extremities. LABORATORY DATA: WBC is 8.1 with hemoglobin 9.9, hematocrit 30.8, and platelets of 221,000. Sodium 143, potassium 3.7, BUN 6, creatinine 0.5 with a glucose of 87. ASSESSMENT AND PLAN: 1. Wernicke encephalopathy versus other acute toxic encephalopathies. She is on thiamine, which we will continue. She is being followed by Dr. Antonio, Neurology. 2. Hypernatremia, electrolyte imbalance. Sodium is normal. We will continue to monitor electrolytes daily and replete or treat as is appropriate. 3. Alcoholic hepatitis. This is stable. 4. Severe protein calorie malnutrition. We will continue with a GI soft diet as well as Ensure. 5. Hypertension. We will continue her current medication regimen. 6. Diarrhea with Clostridium difficile antigen positive, toxin negative. We will continue vancomycin. 7. Psoriasis. She complains of itching. We will start Benadryl 25 mg every 8 hours p.r.n. and monitor. We will repeat a CBC and CMP in the morning. Further treatments pending hospital course. Dictated by RAE Coker for Ross Gonzalez MD This chart was documented by, RAE Coker and accurately reflects the services performed, treatment plan and medical decisions as attested by the providers signature Ross Gonzalez MD. cc: RAE Coker MD [facility]
[2018-09-15] MEDS: PROTONIX IV SCH (12:38)
[2018-09-15] MEDS ORDERED: ATIVAN IV ONE (12:39)
--- NOTE | 2018-09-15 13:47 | PROGRESS NOTE ---
DATE: 09/15/2018 SUBJECTIVE: No major overnight events. She has no current complaints. OBJECTIVE: Current temperature is 98 degrees, blood pressure 80s to 160 systolic, pulse 80s to low 100's, respirations 16 and 99% on 2 L nasal cannula. Ms. Billy is supine in bed. She is a bit agitated at the moment. She was initially asleep, but easily awaked and regarded with verbal stimulus. She states her full name, but did not otherwise answer orientation questions for me. She is a bit agitated and seems to be scratching randomly. She followed some simple commands. Her pupils are equal and reactive. Gaze is conjugate. She had full lateral eye movements spontaneously. Face is symmetric with equal activation. She was moving her extremities freely and spontaneously without obvious focal deficit. LABORATORY: Reviewed in the chart. ASSESSMENT AND PLAN: Global encephalopathy highly suspicious for Wernicke's encephalopathy. She has had improvement with high-dose thiamine administration. She has completed that course. Agree with the continuing at 100 mg IV daily for now with a plan to switch to oral supplementation for her prior to discharge. She will need an MRI of the brain for re-evaluation as her symptoms improve. cc: Veronica Beltran MD
[2018-09-15] MEDS ORDERED: GEODON IM ONE (14:33)
[2018-09-15] MEDS ORDERED: STERILE WATER INJ. INJ ONE (14:33)
[2018-09-15] MEDS: ATARAX PO PRN (14:57)
--- NOTE | 2018-09-15 23:58 | PROGRESS NOTE ---
DATE: 09/15/2018 ADDENDUM: Patient seen and examined by myself. Full note dictated and discussed with nurse practitioner. Patient currently is somnolent but arousable. She does not answer questions appropriately. Does seem to complain about her skin itching. PHYSICAL EXAMINATION: Vital Signs: Reviewed. Temp, she is afebrile. Pulse 83, O2 saturation 97% on 2 L, BP 147/79. Physical reviewed. She is currently in no respiratory distress. She does have a rash on her upper extremities. She is confused, disoriented. ASSESSMENT: 1. Encephalopathy. 2. Hypernatremia. 3. Alcoholic hepatitis. 4. Severe protein calorie malnutrition. PLAN: We will continue patient in the ICU. Continue to follow. Hopefully, she can transition out to the floor soon. TIME SPENT: Greater than 30 minutes was spent in total care. Please see full dictation. cc: Ross Gonzalez MD
[2018-09-16] MEDS: D5W 1,000 ML IV SCH ×3 (00:50→22:45)
[2018-09-16] MEDS: VANCOCIN PO SCH ×4 (04:00→20:48)
[2018-09-16 05:53] LABS: HEMOGLOBIN 11.1 g/dL (12.0-16.0); MCH 33.6 PG (27-31); MCHC 32.6 g/dL (33-37); MPV 10.8 FL (7.4-10.4); RBC 3.3 XMIL (4.2-5.4); RDW 15.6 % (11.5-14.5); WBC 7.62 X1000 (4.8-10.8)
[2018-09-16] MEDS: CLINIMIX E 4.25%-5% SOLUTION 1,000 ML IV SCH ×2 (06:05→16:41)
[2018-09-16] MEDS: VASOTEC IV SCH (06:05)
[2018-09-16 06:20] LABS: AGAP 13; ALB/GLOB RATIO 0.9; ALKALINE PHOSPHATASE 95 U/L (32-104); BUN 6 mg/dL (8-22); CALCIUM 9.2 mg/dL (8.8-10.2); CHLORIDE 108 mmol/L (98-107); COSMO 286; CREATININE 0.4 mg/dL (0.5-0.9); ESTIMATED GFR > 60; GLUCOSE 84 mg/dL (70-104); GOT 36 U/L (10-30); GPT 35 U/L (10-36); POTASSIUM 4.4 mmol/L (3.5-5.1); SODIUM 145 mmol/L (136-145); TCO2 24 mmol/L (25-35); TOTAL BILIRUBIN 0.34 mg/dL (0.20-1.00); TOTAL PROTEIN 6.5 g/dL (6.3-8.3)
[2018-09-16] MEDS: FOLIC ACID IV SCH (07:00)
[2018-09-16] MEDS: M V I IV SCH (07:00)
[2018-09-16] MEDS: THIAMINE IV SCH (07:00)
[2018-09-16] MEDS: D5W IV SCH (07:00)
[2018-09-16] MEDS ORDERED: VASOTEC IV PRN (08:07)
--- NOTE | 2018-09-16 08:35 | PROGRESS NOTE ---
DATE: 09/16/2018 INTERVAL HISTORY: No acute overnight events. SUBJECTIVE: Patient is alert. She states she is hungry. She wants to eat and she wants to go to the bathroom. She does not know the date and the month but she is oriented with the year. Denies any complaints. VITAL SIGNS: Currently detect hypothermia with a temperature of 93.8 degrees, pulse of 70 per minute, blood pressure of 92/67, saturating 97% on room air. PHYSICAL EXAMINATION: General: Does not appear in any acute distress. She does have conjunctival pallor. No cyanosis, clubbing, or icterus. Oral cavity is dry. Lungs: Air entry bilaterally equal. No wheeze, rhonchi, crackles. Cardiovascular: S1, S2 normal. No murmur, rub, or gallop. Abdomen: Soft, nontender. Active bowel sounds. No lower extremity edema. She has bilateral lower extremity restraints. She has very dry scaly skin on all extremities. Neurologic: She is alert. She knows the year; however, not the date or the month. She remembers her birthday. She does not remember the reason why she is in the hospital, though she remembered that this is a hospital. She is able to follow simple commands like opening eyes, lifting her bilateral arms and legs. Input and output suggest she continues to have multiple liquidy brown bowel movements. LABS: Suggestive of normal WBC count, macrocytic anemia, normal platelet count, hyperchloremia, normal kidney function. MICROBIOLOGY: No new microbiological data. ASSESSMENT AND PLAN: 1. Wernicke's encephalopathy in the setting of alcohol use disorder and abrupt alcohol abstinence, status post high dose of intravenous thiamine. Continue patient on thiamine and add folic acid with a multivitamin. Continue antipsychotic as needed for agitation. 2. Acute encephalopathy, likely in the setting of Wernicke's encephalopathy. Plan as mentioned above. 3. Clostridium difficile enterocolitis. The patient, unfortunately, did not receive all doses of her oral vancomycin because of her mental status yesterday. Continue oral vancomycin today as she is more alert. If needed, I might change it to intravenous metronidazole. 4. Macrocytic anemia in the setting of alcohol abuse, alcoholic hepatitis, and fatty liver on presentation. Now these issues seem to have stabilized. Her hemoglobin has been in acceptable range. Continue to monitor. 5. Poor oral intake in the setting of acute encephalopathy. Continue intravenous Clinimix until patient has consistent adequate oral intake. 6. Hypernatremia and hyperchloremia. Continue dextrose 5% water until patient has consistent oral intake. 7. Hypotension and hypothermia. The patient's hypotension resolved after appropriate positioning of blood pressure cuff. I will continue intravenous fluids. I discontinued clonidine. I will give enalaprilat only as needed to avoid further hypotension. 8. Disposition. Patient remains inside the hospital for close monitoring of her mental status. Plan of care discussed with the patient. More than 30 minutes of critical care time were spent in taking care of this patient. cc: Renny Desai MD [facility]
[2018-09-16] MEDS: NEPHROCAPS PO SCH (09:28)
[2018-09-16] MEDS: PROTONIX IV SCH (13:10)
[2018-09-16] MEDS: SODIUM CHLORIDE 0.9% INJ SCH (13:10)
--- NOTE | 2018-09-16 15:51 | PROGRESS NOTE ---
DATE: 09/16/2018 SUBJECTIVE: No major overnight events. The patient is asking for something to drink. OBJECTIVE: Vital Signs: Temperature current 96.3, blood pressure current 109/67, pulse 80s to 90s, respirations 18, satting 99% on room air. General: Ms. Billy is sitting up in bed with head of bed elevated. She remains in wrist restraints. She is awake, much more alert than I have ever seen her. She is bright. She smiles at me. She is oriented to self, location, year. Could not tell me the month, but was able to tell me the fourth month of the year when asked, which was correct. She did not know the date. She knew the president. She follows simple commands consistently. Left/right and digit distinction preserved. Gaze was conjugate. She seemed slow with ocular eye movements, but occasionally I would see her spontaneously capable of moving her eyes conjugately to the left and to the right. Face is symmetric with equal activation. Tongue is midline. She moves her extremities equally without obvious focal deficit. LABS: Reviewed in the chart. ASSESSMENT AND PLAN: Global encephalopathy, highly suspicious for Wernicke's encephalopathy. Notable improvement with high-dose thiamine administration in the initial part of her hospitalization, and remarkable improvement today compared to yesterday. I agree with continuing thiamine supplementation and switching her over to an oral thiamine regimen upon discharge. Again, she will need a repeat MRI of the brain for re-evaluation of the abnormalities found to check for beginning resolution. cc: Veronica Beltran MD [facility]
[2018-09-16] MEDS: ATARAX PO PRN ×2 (16:13→20:48)
[2018-09-16] MEDS: HALDOL IV PRN (22:15)
[2018-09-17] MEDS ORDERED: ATIVAN IV ONE (00:24)
[2018-09-17] MEDS: HALDOL IV PRN ×3 (02:28→20:04)
[2018-09-17] MEDS: VANCOCIN PO SCH ×4 (02:45→20:04)
[2018-09-17] MEDS: CLINIMIX E 4.25%-5% SOLUTION 1,000 ML IV SCH ×2 (06:18→20:50)
--- NOTE | 2018-09-17 07:31 | EKG Report ---
Test Performed on : 09/17/2018 07:17:25 AM Test Reason : Encephalopathy Blood Pressure : / mmHG Vent. Rate : 098 BPM Atrial Rate : 098 BPM P-R Int : 120 ms QRS Dur : 074 ms QT Int : 420 ms P-R-T Axes : 054 063 217 degrees QTc Int : 536 ms Normal sinus rhythm. T wave abnormality, consider inferior ischemia T wave abnormality, consider anterolateral ischemia Prolonged QT Abnormal ECG When compared with ECG of 06-SEP-2018 23:36, Vent. rate has increased BY 42 BPM QRS duration has decreased T wave inversion more evident in Anterior leads QT has shortened Confirmed by Kiran FERNANDEZ, [place] ([id number]) on 09/17/2018 1:05:15 PM
[2018-09-17] MEDS: FOLIC ACID IV SCH (07:33)
[2018-09-17] MEDS: M V I IV SCH (07:33)
[2018-09-17] MEDS: D5W IV SCH (07:33)
[2018-09-17] MEDS: THIAMINE IV SCH (07:33)
[2018-09-17] MEDS ORDERED: VASELINE TOP PRN (08:29)
[2018-09-17] MEDS ORDERED: LIBRIUM PO SCH (09:00)
--- NOTE | 2018-09-17 10:03 | PROGRESS NOTE ---
DATE: 09/17/2018 INTERVAL HISTORY: The patient was agitated overnight and she continues to require restraints. She has been eating well. She has been complaining of lot of itching. Her mental status is waxing and waning, and she is intermittently awake and answering questions. However, she does have very prominent forgetfulness and amnesia. Currently, the patient denies any chest pain or shortness of breath, nausea, vomiting, or abdominal pain. Vitals suggest temperature of 98.6 degrees, pulse of 100, respiratory rate of 14, blood pressure of 128/82, saturating 99% on room air. EKG performed today suggests normal sinus rhythm. She does have prominent anterior lateral and inferior T-wave inversions which were present on 09/04/2018 as well. PHYSICAL EXAMINATION: General: Does not appear in any acute distress. HEENT: Conjunctival pallor. No cyanosis, clubbing, or icterus. Oral cavity is dry. Extremities: Marked drying and excoriation over bilateral upper and lower extremities. Lungs: Air entry bilaterally equal. No wheeze, rhonchi, crackles heard. Heart: S1, S2 normal. No murmur, rub, or gallop. Slightly tachycardic with heart rate of 100 per minute. Abdomen: Soft, nontender. Active bowel sounds. No lower extremity edema. She does have bilateral wrist restraints. Neurological: She is alert. She knows this place, her name. She is not oriented to time though. She is following simple commands like opening mouth, raising arms and legs. However, she appears a little fidgety. Input and output suggest positive 1.9 L. LABORATORY DATA: No CBC or BMP today. No microbiological data. ASSESSMENT AND PLAN: 1. Wernicke's encephalopathy as evidenced on MRI. Her clinical features including amnesia related to alcohol abuse, status post high dose of intravenous thiamine. Continue current dose of intravenous thiamine, folic acid with multivitamin. For her concomitant delirium, likely related to alcohol use, I will start her on chlordiazepoxide b.i.d. and will titrate the dose according to her response. Once she is able to follow commands consistently, we will get MRI of the brain to follow up previously detected fatty aqueductal and thalamus changes. 2. Clostridium difficile enterocolitis. Continue p.o. vancomycin for a total of 14 days. The last dose would be 09/27/2018. 3. Macrocytic anemia in the setting of alcohol abuse, alcohol hepatitis and fatty liver on presentation. Continue the patient on folic acid and multivitamin supplement. Her alcoholic hepatitis and transaminitis seem to be resolving. 4. Poor oral intake in the setting of acute encephalopathy, now improving. Continue oral diet. I will stop intravenous dextrose 5%. I will continue Clinimix until the next 24 hours. If she has consistent p.o. intake, I will discontinue it. 5. Other issues of hypernatremia, hyperchloremia are essentially resolved. I will continue intravenous enalaprilat as needed for hypertension. 6. Disposition: The patient's waxing mental status will require close monitoring. I will continue to monitor in ICU. I called the patient's sister, who is assume is listed to be her surrogate decision maker and have left a voice message for her. More than 30 minutes of critical care time was spent in taking care of this patient. cc: Renny Desai MD [facility]
--- NOTE | 2018-09-17 10:13 | PROGRESS NOTE ---
DATE: 09/17/2018 Ms. Billy is awake, alert, much more attentive than when I last saw her. She answered some simple questions appropriately. Speech dysarthric but easily understood. She followed some simple commands. She moved all limbs. She used her arms more purposefully than her legs. She reports diminished pinprick appreciation over the feet. Ankle reflexes are absent. Proprioception is present, but seems less than normal at the great toe MTP joint bilaterally. She has full lateral and vertical eye movements. IMPRESSION: Likely Wernicke encephalopathy, stable and improving clinically. Clinical evidence of peripheral neuropathy is noted. Nothing to add to Dr. Beltran's earlier suggestions. Thanks for asking Neurology to see Ms. Billy. cc: Rubin Hannah III, MD [facility]
[2018-09-17] MEDS: LOVENOX SUBQ SCH (10:22)
[2018-09-17] MEDS: NEPHROCAPS PO SCH (10:22)
[2018-09-17] MEDS: PROTONIX IV SCH (13:34)
[2018-09-17] MEDS: SODIUM CHLORIDE 0.9% INJ SCH (13:34)
[2018-09-17] MEDS: LIBRIUM PO SCH (18:22)
[2018-09-17] MEDS: HYDROCORTISONE 1% OINTMENT TOP SCH (21:00)
[2018-09-18] MEDS: HALDOL IV PRN (00:08)
[2018-09-18] MEDS: LIBRIUM PO SCH ×4 (00:44→16:47)
[2018-09-18] MEDS: VANCOCIN PO SCH ×4 (01:04→20:34)
[2018-09-18] MEDS: FOLIC ACID IV SCH (05:54)
[2018-09-18] MEDS: D5W IV SCH (05:54)
[2018-09-18] MEDS: M V I IV SCH (05:54)
[2018-09-18] MEDS: THIAMINE IV SCH (05:54)
[2018-09-18 07:44] LABS: BASO# 0.07 X1000 (0.0-0.2); BASO% 0.7 % (0.0-0.8); EOS# 0.93 X1000 (0.0-0.7); EOS% 9.3 % (0.0-10.0); HEMATOCRIT 35.8 % (37.0-47.0); HEMOGLOBIN 11.7 g/dL (12.0-16.0); IMM GRAN# 0.02 X1000 (0.0-0.04); IMM GRAN% 0.2 % (0.0-0.5); LYMPH% 20.1 % (20.5-51.1); MCH 32.8 PG (27-31); MCHC 32.7 g/dL (33-37); MCV 100.3 FL (81-99); MONO# 0.89 X1000 (0.11-0.59); MONO% 8.9 % (1.7-9.3); MPV 10.2 FL (7.4-10.4); NEUT# 6.06 X1000 (1.4-6.5); NEUT% 60.8 % (42.2-75.2); PLT 362 X1000 (130-400); RBC 3.57 XMIL (4.2-5.4); RDW 15.4 % (11.5-14.5); WBC 9.97 X1000 (4.8-10.8)
[2018-09-18 07:58] LABS: AGAP 14; BUN 9 mg/dL (8-22); CALCIUM 9.5 mg/dL (8.8-10.2); CHLORIDE 106 mmol/L (98-107); COSMO 282; CREATININE 0.5 mg/dL (0.5-0.9); ESTIMATED GFR > 60; GLUCOSE 108 mg/dL (70-104); MAGNESIUM 1.9 mg/dL (1.5-2.7); PHOSPHORUS 5.6 mg/dL (2.7-4.5); POTASSIUM 4.4 mmol/L (3.5-5.1); SODIUM 142 mmol/L (136-145); TCO2 22 mmol/L (25-35)
[2018-09-18] MEDS: NEPHROCAPS PO SCH (08:11)
[2018-09-18] MEDS: LOVENOX SUBQ SCH (08:11)
--- NOTE | 2018-09-18 09:27 | PROGRESS NOTE ---
DATE: 09/18/2018 INTERVAL HISTORY: No acute event overnight. She had required multiple doses of haloperidol which I discontinued for her agitation considering her prolonged QTc. SUBJECTIVE: The patient denies any complaints. She is a little disoriented and little agitated. PHYSICAL EXAMINATION: Vital signs: Temperature 98.7 degrees, pulse 95, respiratory rate 22, blood pressure 140/62, saturating 98% on room air. General: She appears disheveled and agitated and follows simple commands. HEENT: Conjunctival pallor is noted. No cyanosis, clubbing, or icterus. Oral cavity is dry. Skin: Marked dryness, excoriation over bilateral upper and lower extremities, especially distal, and neck as well. Lungs: Air entry bilaterally equal. No wheeze, rhonchi, crackles. Cardiovascular: S1, S2 normal. No murmur, rub, or gallop. Tachycardic with heart rate of 100 per minute. Abdomen: Soft, nontender. Active bowel sounds. No lower extremity edema. Neurological: She is alert. She knows this is hospital. She answers simple questions and follows simple commands, but again, her cognition is little impaired and she intermittently becomes confused and starts moving around in the bed. Does not comply with physical examination entirely. On my brief neurological examination, her pupils are bilaterally reacting to light, extraocular movements are present both sides of the midline. I could not elicit reflexes properly as she is agitated. She could not get MRI done yesterday for the same reason. LABORATORY DATA: Today suggestive of macrocytic anemia. Normal WBC and normal platelet count. Normal electrolytes. Hyperphosphatemia. MICROBIOLOGY: No positive microbiological data as such. Her C difficile toxin was negative and antigen was positive. ASSESSMENT AND PLAN: 1. Wernicke's encephalopathy status post high dose of intravenous thiamine. Continue current dose of intravenous thiamine, folic acid, multivitamin. Her mental status has been waxing and waning and since 09/17/2018, her confusion has started getting worse. I also suspect a component of delirium tremens and I will continue her on p.o. chlordiazepoxide and intravenous lorazepam as needed. I stopped IV haloperidol considering prolonged QTc. Follow-up MRI is pending as she was not able to lay down still. 2. Delirium tremens. Plan as mentioned above. 3. Suspected pellagra. She does have diarrhea, dermatitis, mental status changes, peripheral neuropathy. Considering her chronic alcoholic status, pellagra is a consideration. We will start her on niacin supplementation. 4. Clostridium difficile colitis. Continue p.o. vancomycin until September 27. 5. Macrocytic anemia in the setting of alcohol abuse, alcohol hepatitis and fatty liver on presentation. Continue folic acid, multivitamin. Follow up vitamin B12 level. 6. Nutrition. The patient is taking adequate nutrition by mouth. I will hold off on adding intravenous nutrition for now. 7. Dermatitis. Continue patient on niacin supplementation, topical hydration and emollients, topical hydrocortisone. 8. Hypernatremia, hyperchloremia have resolved. Continue intravenous Enalapril as needed for hypertension. 9. Disposition. We will continue to monitor patient in ICU. I was not able to reach out to patient's sister yesterday and had left a voice message. I informed nursing team about letting me know if the patient's family visits her. Plan of care discussed with the nursing team. I left a voice message for Ms Tea Billy (mother). I was able to talk with her brother in law (Ms. Jessica Billy's ) and inform him about her clinical condition and answered his questions. TIME SPENT: More than 30 minutes of critical care time was spent. cc: Renny Desai MD MTDD
[2018-09-18] MEDS: NIACIN PO SCH ×2 (09:48→20:34)
[2018-09-18] MEDS: PROTONIX IV SCH (13:35)
[2018-09-18] MEDS: HYDROCORTISONE 1% OINTMENT TOP SCH (20:34)
[2018-09-18] MEDS: ATIVAN IV PRN (21:54)
[2018-09-18] MEDS ORDERED: BENADRYL PO ONE (23:41)
[2018-09-19] MEDS: LIBRIUM PO SCH (01:03)
[2018-09-19] MEDS: VANCOCIN PO SCH ×4 (01:03→21:40)
[2018-09-19] MEDS: THIAMINE IV SCH (05:38)
[2018-09-19] MEDS: FOLIC ACID IV SCH (05:38)
[2018-09-19] MEDS: D5W IV SCH (05:38)
[2018-09-19] MEDS: M V I IV SCH (05:38)
--- NOTE | 2018-09-19 08:52 | PROGRESS NOTE ---
DATE: 09/19/2018 INTERVAL HISTORY: No acute events overnight. The patient continues to have fluctuating level of mental status, where she would answer and follow simple commands, and then again start becoming confused. SUBJECTIVE: The patient is sleepy, wakes up to verbal command, does not follow any command, lapsed back to sleep again. OBJECTIVE: Vital Signs: Temperature 96.3 degrees, pulse 97, respiratory rate 14, blood pressure 104/77, saturating 100% on room air. General: Does not appear in any acute distress. No pallor, cyanosis, clubbing, or icterus. HEENT: Oral cavity is dry. Skin: Marked dryness, excoriation, and dermatitis over bilateral upper and lower extremities, and neck region. Lungs: Air entry bilaterally equal. No wheeze, rhonchi, crackles. Cardiovascular: S1, S2 normal. No murmur, rub, or gallop. Abdomen: Soft, nontender. No hepatosplenomegaly. Active bowel sounds. Extremities: No lower extremity edema. Neurologic: She is drowsy, arousable to painful stimuli, does not follow simple commands. Her pupils are moving bilaterally, both sides of midline. She does not participate in neurological examination. Genitourinary: She does have a Jackson catheter in place. LABORATORY DATA: No CBC or BMP today. Her glucose was 89. MICROBIOLOGY: No new microbiological data. IMAGING: No new imaging. Her MRI has not been able to be done because of her waxing and waning mental status. ASSESSMENT AND PLAN: 1. Acute metabolic encephalopathy, likely Wernicke's encephalopathy, status post high dose of intravenous thiamine. Continue intravenous thiamine, folic acid, multivitamin. Continue nighttime Librium and as needed lorazepam for episodes of agitation. I stopped intravenous haloperidol considering prolonged QTc. Followup MRIs pending since she has been a little agitated to be still for an MRI. 2. Alcohol abuse with hallucinosis. Plan as mentioned above. 3. Possible pellagra considering her diarrhea, dermatitis, mental status changes, peripheral neuropathy, and use of alcohol chronically. Continue niacin supplementation. 4. Clostridium difficile colitis. Continue oral vancomycin until 09/27/2018. 5. Macrocytic anemia in the setting of alcohol abuse and possible folic acid deficiency. Continue folic acid, multivitamin. B12 level is within normal limit. 6. Others. Continue topical emollients and hydrocortisone for itching; Enalaprilat as needed for hypertension; her alcohol hepatitis and fatty liver on presentation are stable. 7. Disposition. The patient remains inside intensive care unit for close monitoring of her mental status and Wernicke's encephalopathy. I was able to reach out to the patient's brother- in-law and informed him about the patient's clinical condition, and I have left a voice message for the patient's mother. TIME SPENT: More than 30 minutes of critical care time was spent in taking care of this patient. cc: Renny Desai MD
[2018-09-19] MEDS: NIACIN PO SCH ×2 (08:53→21:41)
[2018-09-19] MEDS: NEPHROCAPS PO SCH (08:53)
[2018-09-19] MEDS: LOVENOX SUBQ SCH (08:53)
[2018-09-19] MEDS: PROTONIX IV SCH (13:48)
[2018-09-19] MEDS ORDERED: LIBRIUM PO SCH (21:00)
[2018-09-19] MEDS: HYDROCORTISONE 1% OINTMENT TOP SCH (21:40)
[2018-09-20] MEDS: VANCOCIN PO SCH ×4 (03:09→21:08)
[2018-09-20] MEDS: D5W IV SCH (06:09)
[2018-09-20] MEDS: FOLIC ACID IV SCH (06:09)
[2018-09-20] MEDS: THIAMINE IV SCH (06:09)
[2018-09-20] MEDS: M V I IV SCH (06:09)
[2018-09-20] MEDS: NEPHROCAPS PO SCH (08:53)
[2018-09-20] MEDS: NIACIN PO SCH ×2 (08:53→21:08)
[2018-09-20 08:55] LABS: BASO# 0.04 X1000 (0.0-0.2); BASO% 0.6 % (0.0-0.8); EOS# 0.72 X1000 (0.0-0.7); EOS% 11.1 % (0.0-10.0); HEMATOCRIT 32.6 % (37.0-47.0); HEMOGLOBIN 10.8 g/dL (12.0-16.0); LYMPH# 1.06 X1000 (1.2-3.4); LYMPH% 16.4 % (20.5-51.1); MCH 32.7 PG (27-31); MCHC 33.1 g/dL (33-37); MCV 98.8 FL (81-99); MONO# 0.39 X1000 (0.11-0.59); MPV 9.8 FL (7.4-10.4); NEUT# 4.26 X1000 (1.4-6.5); NEUT% 65.9 % (42.2-75.2); PLT 331 X1000 (130-400); RDW 14.5 % (11.5-14.5); WBC 6.47 X1000 (4.8-10.8)
[2018-09-20] MEDS: LOVENOX SUBQ SCH (09:02)
[2018-09-20 09:24] LABS: AGAP 10; BUN 5 mg/dL (8-22); CALCIUM 8.8 mg/dL (8.8-10.2); CHLORIDE 105 mmol/L (98-107); COSMO 275; CREATININE 0.5 mg/dL (0.5-0.9); ESTIMATED GFR > 60; GLUCOSE 104 mg/dL (70-104); MAGNESIUM 1.8 mg/dL (1.5-2.7); PHOSPHORUS 5.3 mg/dL (2.7-4.5); POTASSIUM 3.6 mmol/L (3.5-5.1); SODIUM 139 mmol/L (136-145); TCO2 24 mmol/L (25-35)
[2018-09-20 09:30] LABS: ALB/GLOB RATIO 1.2; DIRECT BILIRUBIN 0.1 mg/dL (0.00-0.20); TOTAL BILIRUBIN 0.36 mg/dL (0.20-1.00); TOTAL PROTEIN 5.6 g/dL (6.3-8.3)
--- NOTE | 2018-09-20 11:46 | PROGRESS NOTE ---
DATE: 09/20/2018 INTERVAL HISTORY: No acute event overnight. SUBJECTIVE: Patient remains confused, not oriented. Does not answer questions, wakes up to verbal stimuli; however, does not participate in physical examination and keeps on tossing in the bed. OBJECTIVE: Vitals: Temperature, she was severely hypothermic with a core temperature of 89, pulse of 72, respiratory rate 24, blood pressure of 108/71, saturating 100% on room air. General: She does not appear in any acute distress. She is very disoriented. Does not participate in physical examination. HEENT: Oral cavity is dry. Lungs: Air entry bilaterally equal. No wheeze, rhonchi, crackles. Cardiovascular: S1, S2 normal. No murmur, rub, or gallop. Abdomen: Soft, nontender. No hepatosplenomegaly. Active bowel sounds. Extremities: No lower extremity edema. Neurologic: She is drowsy, arousable to strong verbal stimuli, not oriented. Her pupils are bilaterally reacting to light. The nurse had noticed 2 different gaze preferences in bilateral eyes, which I could not examine. She has intact 2+ bilateral biceps and wrist reflexes. I could not elicit any knee reflexes or ankle reflexes. She has diffuse dermatitis affecting bilateral arms, legs and neck. LABORATORY DATA: Suggestive of normocytic anemia, normal platelet count, normal electrolytes, mild transaminitis and hypoalbuminemia. Her cortisol, vitamin B12 levels within normal limit. ASSESSMENT AND PLAN: 1. Hypothermia: Likely central. Follow up MRI. Continue Bear hugger and start patient on IV fluids. I will also send urinanalysis to rule out sepsis and consider antibiotics accordingly. 1. Acute metabolic encephalopathy, likely Wernicke's cephalopathy, status post high-dose intravenous thiamine. Continue intravenous thiamine, folic acid, multivitamin. Continue nighttime Librium, as needed, lorazepam for periods of agitation. Stopped haloperidol considering prolonged QTc. Follow-up MRI likely to be done today. Neurology on board. 2. Alcohol abuse with hallucinosis. 3. Possible pellagra considering diarrhea, dermatitis, peripheral neuropathy and mental status changes in the setting of vitamin B deficiency. Continue niacin supplementation. 4. C. difficile colitis. Continue oral vancomycin until September 27. 5. Macrocytic anemia in the setting of alcohol abuse and possible folate deficiency. Continue folic acid. 6. Continue topical emollients, hydrocortisone for itching. 7. Disposition. The patient's condition remains critical considering persistent altered mental status. Her hypothermia could be related to central thermal regulatory mechanism disturbance affecting hypothalamus, however, the MRI did detect changes in the thalamic region. I will follow up with repeat MRI. 8. Disposition. The patient's condition remains critical. TIME SPENT: More than 30 minutes were spent in taking care of this patient. NOTE: I have left again a voice message for her sister or mother listed in the computer chart to call us back and I had discussed with the nursing team to let me know that the family is at bedside. cc: Renny Desai MD MTDD
[2018-09-20] MEDS: D5 LR 1,000 ML IV SCH (13:46)
[2018-09-20] MEDS: PROTONIX IV SCH (13:46)
--- NOTE | 2018-09-20 15:33 | Diag Imaging Result Doc PS360 ---
EXAM: MRI BRAIN W/WO CONTRAST 09/17/2018 HISTORY: Follow up Wernicke's encephalopathy changes TECHNIQUE: T1 sagittal, axial and post gadolinium axial with coronal reformation, T2, FLAIR, DWI axial and coronal gradient echo. COMMENT: The current study is compared with the previous study of 09/06/2018. There is still increased T2-weighted signal intensity around the cerebral aqueduct and in the medial posterior thalami. Signal changes in the quadrigeminal plate are somewhat less noticeable. There is no evidence of large restricted diffusion. There is no evidence of bleed or abnormal extra-axial fluid collection. There is no evidence of abnormal gadolinium enhancement. IMPRESSION: No significant change since 09/06/2018. Findings consistent with Wernicke's encephalopathy. Electronically signed by Sarmad Alvarado 09/20/2018 3:30 PM
[2018-09-20 17:36] LABS: URINE SOURCE CATH
[2018-09-20 17:43] LABS: BILIRUBIN URINE NEGATIVE (NEGATIVE); BLOOD URINE SMALL (NEGATIVE); COLOR YELLOW; GLUCOSE URINE NEGATIVE (NEGATIVE); KETONE URINE NEGATIVE (NEGATIVE); LEUKOCYTES URINE LARGE (NEGATIVE); NITRITE URINE NEGATIVE (NEGATIVE); PH URINE 5.5; PROTEIN URINE 30 mg/dL (NEGATIVE); SP GRAVITY URINE 1.044; TURBIDITY URINE HAZY (CLEAR); UROBILINOGEN URINE NORMAL (NORMAL)
[2018-09-20 17:46] LABS: UR EPITHELIAL CELLS <10 /HPF (<10); URINE BACTERIA NEGATIVE /HPF; URINE WBC TNTC /HPF (<10)
[2018-09-20] MEDS: ZOSYN 3.375 GM in NS 50 ML IV SCH (17:47)
[2018-09-20 18:05] LABS: URINE CASTS NONE SEEN; URINE CRYSTALS NONE SEEN; URINE YEAST PRESENT
[2018-09-20] MEDS: HYDROCORTISONE 1% OINTMENT TOP SCH (21:08)
[2018-09-21] MEDS: ZOSYN 3.375 GM in NS 50 ML IV SCH ×4 (01:04→18:13)
[2018-09-21] MEDS: VANCOCIN PO SCH ×4 (01:05→21:11)
[2018-09-21] MEDS: D5 LR 1,000 ML IV SCH ×3 (01:05→10:31)
[2018-09-21] MEDS: ATIVAN IV PRN ×2 (04:32→17:08)
[2018-09-21] MEDS: THIAMINE IV SCH (06:11)
[2018-09-21] MEDS: D5W IV SCH (06:11)
[2018-09-21] MEDS: M V I IV SCH (06:11)
[2018-09-21] MEDS: FOLIC ACID IV SCH (06:11)
[2018-09-21] MEDS: NEPHROCAPS PO SCH (08:49)
[2018-09-21] MEDS: NIACIN PO SCH ×2 (08:49→21:11)
[2018-09-21] MEDS: LOVENOX SUBQ SCH (08:49)
--- NOTE | 2018-09-21 08:53 | Diag Imaging Result Doc PS360 ---
EXAM: CHEST-PORTABLE - 09/21/2018 HISTORY: Rule out pneumonia TECHNIQUE: Portable chest COMPARISON: 09/07/2018 FINDINGS: Heart size appears borderline enlarged and stable. Inspiration is somewhat shallow. The lungs appear clear. There is no pleural effusion or pneumothorax identified. IMPRESSION: Stable borderline cardiomegaly. Somewhat shallow inspiration. No other evidence of acute disease. No indication of pneumonia. Electronically signed by Cheikh Yarbrough 09/21/2018 8:50 AM
--- NOTE | 2018-09-21 10:41 | PROGRESS NOTE ---
DATE: 09/21/2018 OVERNIGHT EVENTS: Patient continues to remain hypothermic requiring a Leonid Hugger. Her core temperature remains on the lower side which is 93.4. She appears confused. However, according to nursing team report, the patient intermittently becomes awake during daytime, eats her meal and answers simple questions, but again lapses back into confusion. SUBJECTIVE: The patient opens eyes to verbal commands, answers simple questions. Does not engage in meaningful conversation. Lapses back into sleep. I have not been able to reach out to patient's family. OBJECTIVE: Vital signs: Currently temperature 93.4 degrees, pulse of 99, respiratory rate 18, blood pressure 114/82, saturating 99% on room air. General: Does not appear in any acute distress. She is fidgety in the bed and restless, but drowsy and confused. Mouth: Oral cavity is dry. Lungs: Air entry bilaterally equal. No wheeze, rhonchi or crackles. Cardiovascular: S1, S2 normal. No murmur, rub, or gallop. Abdomen: Soft, nontender. She has urine catheter. No hepatosplenomegaly. Active bowel sounds. Extremities: No lower extremity edema. Neurologic: She is drowsy, arousable to strong verbal stimuli. Tells me her name. Tells me that she has 2 children. Pupils bilaterally equal, reacting to light. She is moving eyes both sides of the midline. She has 2+ bilateral biceps and wrist reflexes. I could not elicit knee reflexes or ankle reflexes. She is also moving continuously in the bed and it was difficult to perform neurological examination. She continues to have significant dermatitis and dry scaly skin affecting bilateral upper lower extremity and neck region. LABORATORIES AND IMAGING: No new labs today. Yesterday, urinalysis did detect pyuria. Urine culture, blood culture is in lab. Chest x-ray is unremarkable without any infiltrate. ASSESSMENT AND PLAN: 1. Sepsis from urinary tract infection versus central temperature dysregulation leading to hypothermia. Follow up brain MRI had essentially documented stable changes of previously documented Wernicke encephalopathy. Continue Leonid Hugger for hypothermia, intravenous fluids, intravenous Zosyn and follow up final blood and urine culture results. 2. Acute encephalopathy in the setting of Wernicke encephalopathy and current sepsis now, status post high dose of intravenous thiamine in the past. Continue intravenous thiamine, folic acid, multivitamin, lorazepam as needed for agitation and anxiety. I will avoid haloperidol considering prolonged QTc. Repeat MRI results noted. Neurology on board. 3. Pellagra presenting with diarrhea, dermatitis, peripheral neuropathy and possibly contributing to mental status changes in the setting of niacin deficiency. Continue niacin supplementation. 4. C. difficile colitis. Continue oral vancomycin until September 27. 5. Other issues including macrocytic anemia, likely folic deficiency because of alcohol abuse, alcoholic fatty liver and alcoholic transaminitis, stable. I will continue topical emollients and hydrocortisone. 6. Disposition. The patient's condition remains critical because of persistent altered mental status. 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 Plan of care discussed with the Nursing Team. I have not been able to reach out to patient's family yet. Again, Nursing Team was informed to let me know if the patient's family calls back. TIME SPENT: More than 30 minutes of critical care time was spent in taking care of this patient. cc: Renny Desai MD
[2018-09-21] MEDS: PROTONIX IV SCH (13:52)
[2018-09-21] MEDS: HYDROCORTISONE 1% OINTMENT TOP SCH (21:11)
[2018-09-22] MEDS: VANCOCIN PO SCH ×3 (02:08→14:17)
[2018-09-22] MEDS: ZOSYN 3.375 GM in NS 50 ML IV SCH ×4 (02:08→19:12)
[2018-09-22] MEDS: ATIVAN IV PRN (02:09)
[2018-09-22] MEDS: THIAMINE IV SCH (06:31)
[2018-09-22] MEDS: M V I IV SCH (06:31)
[2018-09-22] MEDS: FOLIC ACID IV SCH (06:31)
[2018-09-22] MEDS: D5W IV SCH (06:31)
[2018-09-22 08:42] LABS: BASO# 0.08 X1000 (0.0-0.2); EOS# 0.92 X1000 (0.0-0.7); EOS% 11.6 % (0.0-10.0); HEMATOCRIT 32.1 % (37.0-47.0); HEMOGLOBIN 10.4 g/dL (12.0-16.0); IMM GRAN# 0.02 X1000 (0.0-0.04); IMM GRAN% 0.3 % (0.0-0.5); LYMPH# 1.82 X1000 (1.2-3.4); LYMPH% 22.9 % (20.5-51.1); MCH 32.7 PG (27-31); MCHC 32.4 g/dL (33-37); MCV 100.9 FL (81-99); MONO% 7.5 % (1.7-9.3); MPV 9.6 FL (7.4-10.4); NEUT# 4.52 X1000 (1.4-6.5); NEUT% 56.7 % (42.2-75.2); PLT 340 X1000 (130-400); RBC 3.18 XMIL (4.2-5.4); RDW 14.6 % (11.5-14.5); WBC 7.96 X1000 (4.8-10.8)
[2018-09-22] MEDS: NEPHROCAPS PO SCH (08:42)
[2018-09-22] MEDS: NIACIN PO SCH ×2 (08:42→21:09)
[2018-09-22] MEDS: LOVENOX SUBQ SCH (08:42)
[2018-09-22 09:04] LABS: AGAP 8; BUN 7 mg/dL (8-22); CALCIUM 8.8 mg/dL (8.8-10.2); CHLORIDE 110 mmol/L (98-107); COSMO 284; CREATININE 0.7 mg/dL (0.5-0.9); ESTIMATED GFR > 60; GLUCOSE 83 mg/dL (70-104); MAGNESIUM 1.8 mg/dL (1.5-2.7); PHOSPHORUS 5.3 mg/dL (2.7-4.5); POTASSIUM 3.5 mmol/L (3.5-5.1); SODIUM 144 mmol/L (136-145); TCO2 26 mmol/L (25-35)
--- NOTE | 2018-09-22 09:28 | PROGRESS NOTE ---
DATE: 09/22/2018 HOSPITAL COURSE SUMMARY: Ms. Billy has been in the hospital since September 05 when she had initially presented with altered mental status, and later on was transferred to ICU because of severe hypothermia. She was diagnosed with Wernicke encephalopathy through MRI, and since then she has been in the ICU requiring restraints with fluctuating mental status. She again started developing hypothermia about 3 days ago and broad-spectrum antibiotics have been initiated for suspicion of sepsis. So far, the culture data has been negative. INTERVAL HISTORY: No acute events overnight. The patient's mental status remains fluctuating. SUBJECTIVE: The patient is drowsy, but arousable. She keeps on tossing in the bed. She is still in restraints. She follows simple commands like opening mouth and opening eyes, but starts again closing her eyes. She could tell me her mother's name, but then started mumbling again. VITALS: Currently vitals detect temperature of 93.9 degrees, pulse of 106, respiratory rate 18, blood pressure 129/85, saturating on room air 99%. PHYSICAL EXAMINATION: HEENT: Oral cavity is dry. Lungs: Air entry bilaterally equal. No wheeze, rhonchi, crackles. Cardiovascular: S1, S2 normal. No murmur, rub, or gallop. Abdomen: Soft, nontender. She has a urine catheter. Neurologic: Bilateral pupils are equal, reacting to light. She is arousable to strong verbal stimuli. She is able to tell me her name and her mother's name, but then starts mumbling again and does not engage in meaningful conversation. She had generalized dry skin and dermatitis affecting neck, bilateral upper and lower extremities. On my previous neurological examination, she had 2+ biceps and wrist reflexes. I could not elicit knee reflexes and ankle reflexes. Also, she was not complying with proper neurological examination. LABS: Suggestive of no leukocytosis, macrocytic anemia with stable platelet count. BMP is pending so far. MICROBIOLOGICAL DATA: Urine culture and blood culture have not shown any growth. ASSESSMENT AND PLAN: 1. Suspected sepsis from urinary tract infection versus central temperature dysregulation leading to hypothermia. Follow up MRI suggested changes of Wernicke encephalopathy. Continue Leonid Hugger for hypothermia with intravenous antibiotics, and stop the antibiotics according to final culture/sensitivity results. She is no longer on intravenous fluids and she is eating okay. 2. Acute encephalopathy in the setting of Wernicke encephalopathy and possibly current sepsis, now status post high dose of intravenous thiamine in the past. Continue intravenous thiamine, folic acid, multivitamin, and lorazepam as needed for agitation and anxiety. I will avoid haloperidol considering she had prolonged QTc. She may need oral medication standing because of her nighttime agitation. I will consider starting her on Seroquel considering QTc today was 444 on vehicle monitor technician. 3. Suspected Pellagra with diarrhea, dermatitis, peripheral neuropathy and possibly contributing to mental status changes in the setting of niacin deficiency related to alcohol. Continue niacin supplementation. 4. Clostridium difficile colitis. Continue oral vancomycin until September 27 if she continues to have loose bowel movements. Her toxin was negative, though. 5. Other issues: Macrocytic anemia, folic acid deficiency due to alcohol abuse, alcoholic fatty liver and alcoholic transaminitis, stable. Continue topical emollients with hydrocortisone for itching. I would also add cetirizine. I would avoid fourth generation cholinergic and fourth generation antihistamines, as it may worsen her confusion. 6. Disposition: The patient's condition remains critical because of persistent altered mental status and Wernicke encephalopathy. She may be showing signs of progression to Korsakoff psychosis. The plan of care was discussed with the nursing team. I received another contact information about patient's mother, who I will call and update about the patient's clinical course. Once, her hypothermia resolves, the plan would be to transfer her out of ICU and start looking for a residential care facility. ADDENDUM: I was able to reach out to patient's mother on the phone on [phone]. I informed her about patient's clinical condition, possibly irreversible brain damage and answered all of her questions. I also asked her to bring some clothes for the patient to help with passive rewarming. TIME SPENT: More than 30 minutes were spent in taking care of this critically ill patient. cc: Renny Desai MD [facility] MED[facility] CENTERJalyn
[2018-09-22] MEDS: VASELINE TOP SCH (10:15)
[2018-09-22] MEDS: PROTONIX IV SCH (12:18)
[2018-09-22 16:24] LABS: URINE SOURCE CATH
[2018-09-22 16:29] LABS: BILIRUBIN URINE NEGATIVE (NEGATIVE); BLOOD URINE LARGE (NEGATIVE); COLOR YELLOW; GLUCOSE URINE NEGATIVE (NEGATIVE); KETONE URINE NEGATIVE (NEGATIVE); LEUKOCYTES URINE LARGE (NEGATIVE); NITRITE URINE NEGATIVE (NEGATIVE); PH URINE 6.5; PROTEIN URINE 200 mg/dL (NEGATIVE); SP GRAVITY URINE 1.027; TURBIDITY URINE TURBID (CLEAR); UROBILINOGEN URINE NORMAL (NORMAL)
[2018-09-22 16:31] LABS: UR EPITHELIAL CELLS <10 /HPF (<10); URINE BACTERIA NEGATIVE /HPF; URINE RBC TNTC /HPF (<10); URINE WBC TNTC /HPF (<10)
[2018-09-22 16:38] LABS: URINE CASTS NONE SEEN; URINE YEAST PRESENT
[2018-09-22] MEDS: VANCOMYCIN ORAL SOLN PO SCH (21:00)
[2018-09-22] MEDS: ZYRTEC PO SCH (21:09)
[2018-09-23] MEDS ORDERED: NS 250 ML IV ONE (00:57)
[2018-09-23] MEDS: ZOSYN 3.375 GM in NS 50 ML IV SCH ×2 (01:10→06:38)
[2018-09-23] MEDS: VANCOMYCIN ORAL SOLN PO SCH ×4 (02:10→21:14)
[2018-09-23] MEDS: THIAMINE IV SCH (05:38)
[2018-09-23] MEDS: D5W IV SCH (05:38)
[2018-09-23] MEDS: M V I IV SCH (05:38)
[2018-09-23] MEDS: FOLIC ACID IV SCH (05:38)
[2018-09-23] MEDS: NEPHROCAPS PO SCH (08:59)
[2018-09-23] MEDS: VASELINE TOP SCH (08:59)
[2018-09-23] MEDS: NIACIN PO SCH ×2 (08:59→21:26)
[2018-09-23] MEDS: LOVENOX SUBQ SCH (08:59)
--- NOTE | 2018-09-23 13:09 | PROGRESS NOTE ---
DATE: 09/23/2018 SUBJECTIVE: This morning Ms. Billy was sitting up in the bed, was eating lunch. She refers to be doing fairly okay; very limited in her speech, however. The nurse assistant chief nursing officer was helping her with her lunch. OBJECTIVE: Vital signs: Blood pressure is 138/103, respiration is 101, temperature is 96.6 degrees. General exam: Ms. Billy is a 38-year-old female. She is in bed in no distress. HEENT: Mucosa is pink and moist. Anicteric. Acyanotic. Neck: Supple. Chest: Good air entry bilaterally. No crepitations. No rhonchi. Cardiovascular: Regular rate and rhythm. Abdomen: Soft. Bowel sounds present. Extremities: No pedal edema. SUPPLIER QUALITY MANAGER: Patient is awake, alert, oriented to person, but disoriented to time and to place. The patient is very slow reacting. She is able to say a few words, but for the most part she is also limited in her speech. She is able to move all her extremities. I do not see any focalization. LABORATORY DATA: Glucose this morning was 67. MEDICATIONS: Have also been reviewed. ASSESSMENT: 1. Altered mental status presumably from Wernicke encephalopathy with possible sepsis. 2. Generalized scaly rash concerning for pellagra with diarrhea, dermatitis, and what appears to be cognitive decline in patient, who remarkably abuses alcohol. The patient is getting replacement with niacin. 3. Clostridium difficile colitis. Patient is on vancomycin. Date of end of therapy is September 27. 4. History of alcohol abuse in the past. PLAN: So in general, I think Ms. Billy is still altered, but seems to be doing a lot better than before. She is eating some with assistance. We are going to discontinue the Jackson catheter. We will switch most of her medication to oral. Cultures have been negative, so I have discontinued her IV Zosyn. We will continue with the vancomycin for the presumed Clostridium difficile. We will continue with the nutritional supplements, as well as the vitamin replacement, and transfer Ms. Billy from the ICU to regular medical floor. cc: Silverio Rojo MD
[2018-09-23] MEDS: PROTONIX IV SCH (13:44)
[2018-09-23] MEDS: ZYRTEC PO SCH (21:26)
[2018-09-24] MEDS: VANCOMYCIN ORAL SOLN PO SCH ×4 (02:55→21:11)
[2018-09-24 07:31] LABS: BASO% 1.2 % (0.0-0.8); EOS# 1.52 X1000 (0.0-0.7); EOS% 18.5 % (0.0-10.0); HEMATOCRIT 34.7 % (37.0-47.0); HEMOGLOBIN 10.9 g/dL (12.0-16.0); LYMPH% 37.8 % (20.5-51.1); MCH 31.9 PG (27-31); MCHC 31.4 g/dL (33-37); MCV 101.5 FL (81-99); MONO# 0.62 X1000 (0.11-0.59); MONO% 7.6 % (1.7-9.3); MPV 9.5 FL (7.4-10.4); NEUT# 2.86 X1000 (1.4-6.5); NEUT% 34.9 % (42.2-75.2); PLT 351 X1000 (130-400); RBC 3.42 XMIL (4.2-5.4); RDW 14.5 % (11.5-14.5)
[2018-09-24 07:55] LABS: AGAP 9; BUN 4 mg/dL (8-22); CALCIUM 9.5 mg/dL (8.8-10.2); CHLORIDE 112 mmol/L (98-107); COSMO 289; CREATININE 0.6 mg/dL (0.5-0.9); ESTIMATED GFR > 60; GLUCOSE 87 mg/dL (70-104); MAGNESIUM 1.9 mg/dL (1.5-2.7); PHOSPHORUS 4.7 mg/dL (2.7-4.5); POTASSIUM 3.8 mmol/L (3.5-5.1); SODIUM 147 mmol/L (136-145); TCO2 26 mmol/L (25-35)
[2018-09-24] MEDS: LOVENOX SUBQ SCH (08:57)
[2018-09-24] MEDS: VITAMIN B-1 PO SCH (08:57)
[2018-09-24] MEDS: NIACIN PO SCH ×2 (08:57→22:12)
[2018-09-24] MEDS: NEPHROCAPS PO SCH (08:58)
[2018-09-24] MEDS: VASELINE TOP SCH (09:17)
[2018-09-24] MEDS: ATIVAN IV PRN ×2 (14:33→22:56)
[2018-09-24] MEDS: SODIUM CHLORIDE 0.9% INJ SCH (14:34)
[2018-09-24] MEDS: PROTONIX IV SCH (14:34)
--- NOTE | 2018-09-24 20:32 | PROGRESS NOTE ---
DATE: 09/24/2018 SUBJECTIVE: The patient is awake and able to answer questions appropriately. She also ate a good bit of her meal today. OBJECTIVE: Vital signs: Temperature 98 degrees, blood pressure 136/97, heart rate 89, respirations 18, O2 saturations 100% on room air. General: This is an elderly female lying in bed in no acute distress. Heart: S1, S2 normal. Regular rate and rhythm. Lungs: Equal air entry. No wheezing. No rales. No rhonchi. Abdomen: Positive bowel sounds. Soft, nontender, nondistended. Extremities: No edema, no cyanosis. Neurologic: The patient is awake and oriented to self. LABORATORY DATA: Sodium 147, potassium 3.8, chloride 112, CO2 is 26, BUN 4, creatinine 0.6. ASSESSMENT AND PLAN: 1. Wernicke encephalopathy. The patient's mental status is slowly improving. We will continue to monitor closely for improvement. 2. Suspected pellagra. Continue with niacin replacement. 3. Clostridium difficile colitis. Continue on oral vancomycin. The patient will complete therapy on 09/27. 4. Alcohol dependence. Aware. 5. Hypernatremia. We will start the patient on D5W and monitor her sodium level closely. 6. We will consult Physical Therapy. cc: Caroline Rivero MD
[2018-09-24] MEDS: ZYRTEC PO SCH (22:12)
[2018-09-24] MEDS: D5W 1,000 ML IV SCH (22:22)
[2018-09-25] MEDS: VANCOMYCIN ORAL SOLN PO SCH ×4 (02:48→21:01)
[2018-09-25 08:07] LABS: ALB/GLOB RATIO 0.9; ALBUMIN 3.1 g/dL (3.5-5.0); DIRECT BILIRUBIN 0.1 mg/dL (0.00-0.20); TOTAL BILIRUBIN 0.38 mg/dL (0.20-1.00); TOTAL PROTEIN 6.4 g/dL (6.3-8.3)
[2018-09-25] MEDS: NEPHROCAPS PO SCH (08:54)
[2018-09-25] MEDS: LOVENOX SUBQ SCH (08:55)
[2018-09-25] MEDS: ATIVAN IV PRN (08:55)
[2018-09-25] MEDS: VITAMIN B-1 PO SCH (08:55)
[2018-09-25] MEDS: NIACIN PO SCH ×2 (08:57→21:02)
[2018-09-25] MEDS: VASELINE TOP SCH (08:57)
[2018-09-25] MEDS: D5W 1,000 ML IV SCH (12:13)
[2018-09-25 14:23] LABS: AGAP 11; BUN 3 mg/dL (8-22); CALCIUM 8.3 mg/dL (8.8-10.2); CHLORIDE 110 mmol/L (98-107); COSMO 285; CREATININE 0.6 mg/dL (0.5-0.9); ESTIMATED GFR > 60; GLUCOSE 93 mg/dL (70-104); MAGNESIUM 1.7 mg/dL (1.5-2.7); POTASSIUM 3.4 mmol/L (3.5-5.1); SODIUM 145 mmol/L (136-145); TCO2 24 mmol/L (25-35)
[2018-09-25] MEDS ORDERED: MAGNESIUM SULFATE 2 GM/S.W.I. 2 GM/50 ML IVPB IV ONE (14:26)
[2018-09-25] MEDS ORDERED: KLOR-CON PO ONE (14:26)
[2018-09-25] MEDS: SODIUM CHLORIDE 0.9% INJ SCH (15:12)
[2018-09-25] MEDS: PROTONIX IV SCH (15:12)
--- NOTE | 2018-09-25 20:06 | PROGRESS NOTE ---
DATE: 09/25/2018 SUBJECTIVE: The patient has been lethargic today. The nurse reported that the patient is retaining 700 mL of urine. OBJECTIVE: Vital signs: Temperature 98.9 degrees, blood pressure 133/90, heart rate 73, respirations 18, O2 saturations 100% on room air. General: This is a chronically ill-appearing female lying in bed, in no acute distress. Head: Normocephalic atraumatic. Heart: S1, S2 normal. Regular rate and rhythm. Lungs: Clear to auscultation bilaterally. No wheezing. No rales. No rhonchi. Abdomen: Positive bowel sounds. Soft, nontender, nondistended. Extremities: No edema. No cyanosis. No calf tenderness. Neurologic: The patient is awake and oriented to self. LABORATORIES: Sodium 145, potassium 3.4, chloride 110, CO2 of 24, BUN 3, creatinine 0.6, glucose 91. ASSESSMENT AND PLAN: 1. Urinary retention. The patient was holding over 700 mL of urine. We will order a Jackson catheter and start the patient on Flomax. We will also check a urinalysis. 2. Encephalopathy. I will continue to monitor for improvement. 3. Suspected pellagra. Continue with niacin replacement. 4. Clostridium difficile colitis. Continue on vancomycin. The last dose will be on September 27. 5. Alcohol dependence. Aware. 6. Hyponatremia. Resolved. 7. Continue with physical therapy. cc: Caroline Rivero MD
[2018-09-25 20:19] LABS: URINE SOURCE CATH
[2018-09-25 20:21] LABS: BILIRUBIN URINE NEGATIVE (NEGATIVE); BLOOD URINE TRACE (NEGATIVE); COLOR YELLOW; GLUCOSE URINE NEGATIVE (NEGATIVE); KETONE URINE NEGATIVE (NEGATIVE); LEUKOCYTES URINE LARGE (NEGATIVE); NITRITE URINE NEGATIVE (NEGATIVE); PH URINE 6.5; PROTEIN URINE 100 mg/dL (NEGATIVE); SP GRAVITY URINE 1.019; TURBIDITY URINE TURBID (CLEAR); UROBILINOGEN URINE NORMAL (NORMAL)
[2018-09-25 20:37] LABS: UR EPITHELIAL CELLS >10 /HPF (<10); URINE BACTERIA 1+ /HPF; URINE CASTS NONE SEEN; URINE CRYSTALS NONE SEEN; URINE RBC 20-40 /HPF (<10); URINE SMALL ROUND CELLS NONE SEEN; URINE WBC TNTC /HPF (<10); URINE YEAST PRESENT
[2018-09-25] MEDS: FLOMAX PO SCH (21:02)
[2018-09-25] MEDS: ZYRTEC PO SCH (21:02)
[2018-09-25] MEDS: ROCEPHIN 1 GM in NS 50 ML IV SCH (23:19)
[2018-09-26] MEDS: VANCOMYCIN ORAL SOLN PO SCH ×3 (03:04→15:54)
[2018-09-26 08:53] LABS: BASO# 0.04 X1000 (0.0-0.2); BASO% 0.6 % (0.0-0.8); EOS# 0.46 X1000 (0.0-0.7); HEMATOCRIT 33.7 % (37.0-47.0); HEMOGLOBIN 10.9 g/dL (12.0-16.0); LYMPH# 1.36 X1000 (1.2-3.4); LYMPH% 20.7 % (20.5-51.1); MCH 32.2 PG (27-31); MCHC 32.3 g/dL (33-37); MCV 99.7 FL (81-99); MONO# 0.34 X1000 (0.11-0.59); MONO% 5.2 % (1.7-9.3); MPV 9.6 FL (7.4-10.4); NEUT# 4.37 X1000 (1.4-6.5); NEUT% 66.5 % (42.2-75.2); PLT 305 X1000 (130-400); RBC 3.38 XMIL (4.2-5.4); RDW 14.2 % (11.5-14.5); WBC 6.57 X1000 (4.8-10.8)
[2018-09-26 09:07] LABS: AGAP 14; BUN 3 mg/dL (8-22); CALCIUM 9.4 mg/dL (8.8-10.2); CHLORIDE 113 mmol/L (98-107); COSMO 294; CREATININE 0.6 mg/dL (0.5-0.9); ESTIMATED GFR > 60; GLUCOSE 96 mg/dL (70-104); MAGNESIUM 2.2 mg/dL (1.5-2.7); PHOSPHORUS 5.7 mg/dL (2.7-4.5); POTASSIUM 3.5 mmol/L (3.5-5.1); SODIUM 150 mmol/L (136-145); TCO2 23 mmol/L (25-35)
[2018-09-26] MEDS: D5W 1,000 ML IV SCH ×2 (10:53→22:08)
[2018-09-26] MEDS: VASELINE TOP SCH (10:53)
[2018-09-26] MEDS: LOVENOX SUBQ SCH (10:54)
[2018-09-26] MEDS: NEPHROCAPS PO SCH (10:54)
[2018-09-26] MEDS: VITAMIN B-1 PO SCH (10:54)
[2018-09-26] MEDS: NIACIN PO SCH ×2 (10:54→22:10)
[2018-09-26] MEDS: ATIVAN IV PRN (12:55)
[2018-09-26] MEDS: DILAUDID IV PRN (13:26)
[2018-09-26] MEDS: AQUAPHOR OINTMENT TOP SCH ×2 (18:18→22:11)
[2018-09-26] MEDS: KENALOG 0.1% OINTMENT TOP SCH ×2 (18:19→22:11)
[2018-09-26] MEDS: PROTONIX IV SCH (18:19)
[2018-09-26 18:50] LABS: AGAP 11; ALBUMIN 2.7 g/dL (3.5-5.0); BUN 3 mg/dL (8-22); CALCIUM 9.5 mg/dL (8.8-10.2); CHLORIDE 112 mmol/L (98-107); COSMO 288; CREATININE 0.6 mg/dL (0.5-0.9); ESTIMATED GFR > 60; GLUCOSE 119 mg/dL (70-104); PHOSPHORUS 5.6 mg/dL (2.7-4.5); POTASSIUM 3.8 mmol/L (3.5-5.1); SODIUM 146 mmol/L (136-145); TCO2 23 mmol/L (25-35)
[2018-09-26 20:15] LABS: INR 0.95; PROTIME 13.4 Seconds (11.0-16.0)
--- NOTE | 2018-09-26 20:29 | PROGRESS NOTE ---
DATE: 09/26/2018 SUBJECTIVE: The patient is awake and attempting to eat. No acute events noted overnight. OBJECTIVE: Vital Signs: Temperature 98.6 degrees, blood pressure 106/81, heart rate 88, respirations 16, O2 saturations 100% on room air. General: This is a chronically ill-appearing, young female lying in bed in no acute distress. Heart: S1, S2 normal. Regular rate and rhythm. Lungs: Clear to auscultation bilaterally. Abdomen: Positive bowel sounds. Soft, nontender, nondistended. Extremities: No edema and no cyanosis. Neurologic: The patient is awake, but still has periods of confusion. She is in wrist restraints. LABORATORY DATA: White blood cell count 6.5, hemoglobin 10, hematocrit 43, platelets 305,000. Sodium 146, potassium 3.8, chloride 112, CO2 of 23, BUN 3, creatinine 0.6 glucose 119. Phosphorus 5.6. ASSESSMENT AND PLAN: 1. Wernicke's encephalopathy. Aware. We will continue to monitor the patient closely for improvement. 2. Suspected pellagra. Continue with niacin replacement. 3. Dermatitis. We will start the patient on triamcinolone ointment. 4. Clostridium difficile colitis. Continue on vancomycin. Tomorrow will be the last dose to complete therapy. 5. Alcohol dependence. Aware. 6. Hypernatremia. Will start the patient on D5W. 7. Urinary retention. The patient currently has a Jackson in place and is on Flomax. The patient will likely need a voiding trial prior to discharge. 8. Urinary tract infection. The urine culture shows no growth. We will discontinue the antibiotic. 9. Disposition. Continue with physical therapy. cc: Caroline Rivero MD [facility]
[2018-09-26] MEDS: ZYRTEC PO SCH (22:10)
[2018-09-26] MEDS: FLOMAX PO SCH (22:10)
[2018-09-27] MEDS: ROCEPHIN 1 GM in NS 50 ML IV SCH ×2 (01:41→22:32)
[2018-09-27] MEDS: VANCOMYCIN ORAL SOLN PO SCH ×6 (01:59→22:44)
[2018-09-27] MEDS: ATIVAN IV PRN ×2 (03:31→17:38)
[2018-09-27] MEDS: D5W 1,000 ML IV SCH ×2 (05:19→16:51)
[2018-09-27 07:35] LABS: HEMATOCRIT 32.7 % (37.0-47.0); HEMOGLOBIN 10.6 g/dL (12.0-16.0); MCH 32.4 PG (27-31); MCHC 32.4 g/dL (33-37); MPV 9.5 FL (7.4-10.4); RBC 3.27 XMIL (4.2-5.4); RDW 13.9 % (11.5-14.5); WBC 6.34 X1000 (4.8-10.8)
[2018-09-27 07:52] LABS: AGAP 9; ALBUMIN 2.9 g/dL (3.5-5.0); BUN 3 mg/dL (8-22); CALCIUM 9.1 mg/dL (8.8-10.2); CHLORIDE 114 mmol/L (98-107); COSMO 295; CREATININE 0.6 mg/dL (0.5-0.9); ESTIMATED GFR > 60; GLUCOSE 102 mg/dL (70-104); PHOSPHORUS 5.8 mg/dL (2.7-4.5); POTASSIUM 4.2 mmol/L (3.5-5.1); SODIUM 150 mmol/L (136-145); TCO2 27 mmol/L (25-35)
[2018-09-27] MEDS ORDERED: NS 250 ML ONE (08:56)
[2018-09-27] MEDS: KENALOG 0.1% OINTMENT TOP SCH ×2 (09:34→22:33)
[2018-09-27] MEDS: VASELINE TOP SCH (09:35)
[2018-09-27] MEDS: NIACIN PO SCH ×2 (09:35→22:45)
[2018-09-27] MEDS: NEPHROCAPS PO SCH (09:36)
[2018-09-27] MEDS: VITAMIN B-1 PO SCH (09:36)
[2018-09-27] MEDS: LOVENOX SUBQ SCH (09:37)
[2018-09-27] MEDS: AQUAPHOR OINTMENT TOP SCH ×2 (09:38→22:33)
--- NOTE | 2018-09-27 15:37 | PROGRESS NOTE ---
DATE: 09/27/2018 SUBJECTIVE: Patient has no focal complaints, but she is very agitated. OBJECTIVE: Vital Signs: Blood pressure is 104/70, heart rate 83, respiratory rate 15, temperature 97.6. Cardiovascular: Regular rate and rhythm. Pulmonary: Bilateral breath sounds. Clear to auscultation. Gastrointestinal: Soft, nontender, nondistended. Bowel sounds are positive. LABORATORY DATA: White count 6, hemoglobin and hematocrit 10 and 32, platelets 298,000. Sodium 150. PROBLEM LIST: 1. Wernicke's encephalopathy. She is on continued treatment. 2. Pellagra, probable. Will continue niacin. 3. C difficile colitis, on vancomycin. 4. Alcohol dependence. Aware. I think she has had it long enough at this point to complete withdrawal. 5. Hypernatremia. We will continue D5 and free water. 6. Urinary retention. She is on Flomax with a Jackson. 7. Disposition: We will continue to follow closely. She has been on it for about 5 days, the vancomycin. Will continue to monitor. cc: Suresh Kang MD
[2018-09-27] MEDS: DILAUDID IV PRN (16:44)
[2018-09-27] MEDS: PROTONIX IV SCH (17:04)
[2018-09-27] MEDS: SODIUM CHLORIDE 0.9% INJ SCH (17:04)
[2018-09-27] MEDS: FLOMAX PO SCH (22:34)
[2018-09-27] MEDS: ZYRTEC PO SCH (22:34)
[2018-09-28] MEDS: ATIVAN IV PRN ×2 (00:50→11:31)
[2018-09-28] MEDS: VANCOMYCIN ORAL SOLN PO SCH ×2 (01:40→10:15)
[2018-09-28] MEDS: D5W 1,000 ML IV SCH ×4 (02:31→15:26)
[2018-09-28 08:39] LABS: AGAP 12; ALBUMIN 2.8 g/dL (3.5-5.0); BUN 4 mg/dL (8-22); CALCIUM 8.6 mg/dL (8.8-10.2); CHLORIDE 112 mmol/L (98-107); COSMO 290; CREATININE 0.8 mg/dL (0.5-0.9); ESTIMATED GFR > 60; GLUCOSE 82 mg/dL (70-104); PHOSPHORUS 5.8 mg/dL (2.7-4.5); POTASSIUM 3.8 mmol/L (3.5-5.1); SODIUM 148 mmol/L (136-145); TCO2 24 mmol/L (25-35)
[2018-09-28 09:39] LABS: BASO# 0.07 X1000 (0.0-0.2); BASO% 0.9 % (0.0-0.8); EOS# 0.65 X1000 (0.0-0.7); EOS% 8.8 % (0.0-10.0); HEMATOCRIT 32.9 % (37.0-47.0); HEMOGLOBIN 10.6 g/dL (12.0-16.0); IMM GRAN# 0.02 X1000 (0.0-0.04); IMM GRAN% 0.3 % (0.0-0.5); LYMPH# 3.28 X1000 (1.2-3.4); LYMPH% 44.4 % (20.5-51.1); MCHC 32.2 g/dL (33-37); MCV 99.4 FL (81-99); MONO# 0.49 X1000 (0.11-0.59); MONO% 6.6 % (1.7-9.3); MPV 9.7 FL (7.4-10.4); NEUT# 2.88 X1000 (1.4-6.5); PLT 281 X1000 (130-400); RBC 3.31 XMIL (4.2-5.4); RDW 14.2 % (11.5-14.5); WBC 7.39 X1000 (4.8-10.8)
[2018-09-28] MEDS: KENALOG 0.1% OINTMENT TOP SCH ×2 (10:14→22:50)
[2018-09-28] MEDS: AQUAPHOR OINTMENT TOP SCH ×2 (10:15→22:50)
[2018-09-28] MEDS: NIACIN PO SCH ×2 (10:16→22:51)
[2018-09-28] MEDS: VITAMIN B-1 PO SCH (10:16)
[2018-09-28] MEDS: NEPHROCAPS PO SCH (10:16)
[2018-09-28] MEDS: VASELINE TOP SCH (10:16)
[2018-09-28] MEDS: LOVENOX SUBQ SCH (10:16)
--- NOTE | 2018-09-28 13:34 | PROGRESS NOTE ---
DATE: 09/28/2018 SUBJECTIVE: The patient is resting. She still has periods of confusion and impulsivity. She is currently in wrist restraints. OBJECTIVE: Vital Signs: Temperature 96.5 degrees, blood pressure 126/83, heart rate 83, respirations 18, O2 saturation is 100% on room air. General: This is a chronically ill- appearing, young female lying in bed, in no acute distress. Heart: S1, S2 normal. Regular rate and rhythm. Lungs: Clear to auscultation bilaterally. Abdomen: Positive bowel sounds. Soft, nontender, nondistended. Extremities: No edema, no cyanosis. Labs: White blood cell count 7.3, hemoglobin 10, hematocrit 32, platelets 281,000. Sodium 148, potassium 3.8, chloride 112, CO2 24, BUN 4, creatinine 0.8, glucose 125, phosphorus 5.8. ASSESSMENT AND PLAN: 1. Wernicke's encephalopathy. Aware. We will continue to monitor the patient for improvement and continue with vitamin supplementation. 2. Suspected pellagra. Continue on niacin. 3. Dermatitis. Continue with the triamcinolone ointment. 4. Clostridium difficile colitis. Continue on oral vancomycin. 5. Hypernatremia. Slightly improved. Continue on D5W. 6. Urinary retention. Continue with the Jackson catheter and Flomax. The patient will need to have the Jackson removed to figure out whether she can urinate on her own as we get closer to discharge. 7. Disposition. Continue with physical therapy. The patient will likely need inpatient rehab once she is medically stable for discharge. cc: Caroline Rivero MD
[2018-09-28] MEDS: PROTONIX IV SCH (15:26)
[2018-09-28] MEDS: ROCEPHIN 1 GM in NS 50 ML IV SCH (22:50)
[2018-09-28] MEDS: ZYRTEC PO SCH (22:51)
[2018-09-28] MEDS: FLOMAX PO SCH (22:51)
[2018-09-29] MEDS: D5W 1,000 ML IV SCH ×3 (02:11→22:45)
[2018-09-29 07:37] LABS: HEMATOCRIT 31.4 % (37.0-47.0); HEMOGLOBIN 10.1 g/dL (12.0-16.0); MCH 32.6 PG (27-31); MCHC 32.2 g/dL (33-37); MCV 101.3 FL (81-99); MPV 8.9 FL (7.4-10.4); RBC 3.1 XMIL (4.2-5.4); RDW 13.8 % (11.5-14.5); WBC 6.89 X1000 (4.8-10.8)
[2018-09-29 08:02] LABS: AGAP 9; ALBUMIN 2.8 g/dL (3.5-5.0); BUN 4 mg/dL (8-22); CALCIUM 8.4 mg/dL (8.8-10.2); CHLORIDE 110 mmol/L (98-107); COSMO 283; CREATININE 0.8 mg/dL (0.5-0.9); ESTIMATED GFR > 60; GLUCOSE 87 mg/dL (70-104); PHOSPHORUS 5.4 mg/dL (2.7-4.5); POTASSIUM 3.5 mmol/L (3.5-5.1); SODIUM 144 mmol/L (136-145); TCO2 25 mmol/L (25-35)
[2018-09-29] MEDS: VITAMIN B-1 PO SCH (08:34)
[2018-09-29] MEDS: NIACIN PO SCH ×2 (08:34→22:45)
[2018-09-29] MEDS: ATIVAN IV PRN ×2 (08:34→16:21)
[2018-09-29] MEDS: NEPHROCAPS PO SCH (08:34)
[2018-09-29] MEDS: LOVENOX SUBQ SCH (08:34)
[2018-09-29] MEDS: AQUAPHOR OINTMENT TOP SCH ×2 (08:35→22:47)
[2018-09-29] MEDS: KENALOG 0.1% OINTMENT TOP SCH ×2 (08:36→22:40)
[2018-09-29] MEDS: VASELINE TOP SCH (08:36)
[2018-09-29] MEDS: PROTONIX IV SCH (13:26)
[2018-09-29] MEDS: SODIUM CHLORIDE 0.9% INJ SCH (13:26)
--- NOTE | 2018-09-29 16:18 | PROGRESS NOTE ---
DATE: 09/29/2018 SUBJECTIVE: The patient is lying in bed. She is currently very restless. She is in wrist restraints. OBJECTIVE: Vital Signs: Temperature 97.5, blood pressure 125/79, heart rate 57, respirations 16. O2 sats 98% on room air. General: This is a chronically ill-appearing elderly female lying in bed in no acute distress. HEENT: Head normocephalic, atraumatic. Heart: S1, S2 normal. Regular rate and rhythm. Lungs: Clear to auscultation bilaterally. Abdomen: Positive bowel sounds. Soft, nontender, nondistended. Extremities: No edema, no cyanosis. Neurologic: The patient is awake, but has periods of confusion and inattentiveness. LABS: White blood cell count 6.8, hemoglobin 10, hematocrit 31, platelets 235,000 sodium 144, potassium 3.5, chloride 110, CO2 25, BUN 4, creatinine 0.8, glucose 133, phosphorus 5.4. ASSESSMENT AND PLAN: 1. Wernicke's encephalopathy. Continue with vitamin supplementation. The patient's mental status is about the same and has not changed for the last several days. 2. Pellagra. Continue on niacin. 3. Dermatitis. Continue with the current triamcinolone ointment and moisturizer. 4. C difficile colitis. Continue on oral vancomycin. 5. Urinary retention. Continue with the Jackson catheter and Flomax. 6. Disposition. Ordnance Technician is working on rehab placement. However, the patient is still in wrist restraints. cc: Caroline Rivero MD [facility]
[2018-09-29] MEDS: ROCEPHIN 1 GM in NS 50 ML IV SCH (22:44)
[2018-09-29] MEDS: ZYRTEC PO SCH (22:45)
[2018-09-29] MEDS: FLOMAX PO SCH (22:45)
[2018-09-30] MEDS: DILAUDID IV PRN (03:28)
[2018-09-30 07:55] LABS: HEMOGLOBIN 11.2 g/dL (12.0-16.0); MCH 31.8 PG (27-31); MCV 99.4 FL (81-99); MPV 9.5 FL (7.4-10.4); RBC 3.52 XMIL (4.2-5.4); RDW 13.8 % (11.5-14.5); WBC 8.62 X1000 (4.8-10.8)
[2018-09-30 08:07] LABS: AGAP 12; BUN 3 mg/dL (8-22); CALCIUM 8.3 mg/dL (8.8-10.2); CHLORIDE 109 mmol/L (98-107); COSMO 281; CREATININE 0.8 mg/dL (0.5-0.9); ESTIMATED GFR > 60; GLUCOSE 89 mg/dL (70-104); POTASSIUM 3.8 mmol/L (3.5-5.1); SODIUM 143 mmol/L (136-145); TCO2 22 mmol/L (25-35)
[2018-09-30] MEDS: LOVENOX SUBQ SCH (08:48)
[2018-09-30] MEDS: NIACIN PO SCH ×3 (08:48→23:41)
[2018-09-30] MEDS: VITAMIN B-1 PO SCH ×2 (08:48→09:00)
[2018-09-30] MEDS: NEPHROCAPS PO SCH ×2 (08:48→08:59)
[2018-09-30] MEDS: VASELINE TOP SCH (08:49)
[2018-09-30] MEDS: D5W 1,000 ML IV SCH ×2 (08:49→18:16)
[2018-09-30] MEDS: ATIVAN IV PRN ×2 (08:49→13:11)
[2018-09-30] MEDS: KENALOG 0.1% OINTMENT TOP SCH ×2 (08:50→23:40)
[2018-09-30] MEDS: AQUAPHOR OINTMENT TOP SCH ×2 (08:54→23:52)
[2018-09-30] MEDS: PROTONIX IV SCH (13:10)
--- NOTE | 2018-09-30 14:16 | PROGRESS NOTE ---
DATE: 09/30/2018 SUBJECTIVE: The patient is resting comfortably in bed. She remains confused and she is in wrist restraints. OBJECTIVE: Vital Signs: Temperature 97.9 degrees, blood pressure 142/76, heart rate 98, respirations 16, O2 saturation 93% on room air. General: This is a young female lying in bed, currently very restless. Head: Normocephalic, atraumatic. Heart: S1, S2 normal. Rate and rhythm. Lungs: Clear to auscultation bilaterally. Abdomen: Positive bowel sounds. Soft, nontender, nondistended. Extremities: No edema no cyanosis. Neurologic: The patient is confused. She appears to be writhing in bed. LABORATORY DATA: Sodium 143, potassium 3.8, chloride 109, CO2 22, BUN 3, creatinine 0.8, glucose 89. White blood cell count 8.6, hemoglobin 11, hematocrit 35, platelets 224,000. ASSESSMENT AND PLAN: 1. Wernicke's encephalopathy. Unchanged. We will continue to monitor for improvement. 2. Pellagra. Continue on niacin. 3. Clostridium difficile colitis. Resolved. 4. Dermatitis. Continue on the skin ointment. 5. Urinary retention. The patient currently has a Jackson catheter in place and is on Flomax. 6. Disposition. The patient has to be out of wrist restraints before she can be placed in inpatient rehab. cc: Caroline Rivero MD
[2018-09-30] MEDS: ZYRTEC PO SCH (23:40)
[2018-09-30] MEDS: FLOMAX PO SCH (23:40)
[2018-09-30] MEDS: ROCEPHIN 1 GM in NS 50 ML IV SCH (23:41)
[2018-10-01] MEDS: DILAUDID IV PRN (02:19)
[2018-10-01] MEDS: D5W 1,000 ML IV SCH ×2 (06:35→17:03)
[2018-10-01] MEDS: NIACIN PO SCH ×3 (11:27→22:36)
[2018-10-01] MEDS: NEPHROCAPS PO SCH ×2 (11:27→12:22)
[2018-10-01] MEDS: KENALOG 0.1% OINTMENT TOP SCH ×2 (11:28→22:36)
[2018-10-01] MEDS: VASELINE TOP SCH (11:28)
[2018-10-01] MEDS: VITAMIN B-1 PO SCH ×2 (11:28→12:22)
[2018-10-01] MEDS: AQUAPHOR OINTMENT TOP SCH ×2 (11:28→22:37)
[2018-10-01] MEDS: LOVENOX SUBQ SCH (11:29)
[2018-10-01] MEDS: PROTONIX IV SCH ×2 (11:29→17:04)
--- NOTE | 2018-10-01 14:41 | Diag Imaging Result Doc PS360 ---
EXAM: CHEST-1 VIEW HISTORY: check placement PICC TECHNIQUE: PA and Lateral chest x-ray COMPARISON: 09/21/2018 FINDINGS: A right PICC catheter has been placed with its tip in the lower SVC. The cardiomediastinal silhouette is within normal limits. The pulmonary vasculature is not congested. No infiltrate, effusion, or pneumothorax is appreciated. IMPRESSION: Satisfactory PICC catheter placement. No acute cardiopulmonary abnormality is identified. Electronically signed by Mallory Sommer 10/01/2018 2:38 PM
--- NOTE | 2018-10-01 20:20 | PROGRESS NOTE ---
DATE: 10/01/2018 SUBJECTIVE: The patient is confused and very restless. OBJECTIVE: Vital Signs: Temperature 98.4 degrees blood pressure 134/97, heart rate 84, respirations 16, O2 saturation is 100% on room air. General: This is a young female lying in bed in no acute distress. Heart: S1, S2 normal. Regular rate and rhythm. Lungs: Equal air entry bilaterally. No crackles. No rales. Abdomen: Positive bowel sounds. Soft, nontender, nondistended. Extremities: No edema, no cyanosis. Neurologic: The patient is awake, but confused and very agitated. LABORATORY DATA: None. ASSESSMENT AND PLAN: 1. Wernicke encephalopathy. Unchanged. We will continue to monitor the patient closely for improvement. 2. Pellagra. Continue on niacin. 3. Clostridium difficile colitis. Resolved. 4. Dermatitis. Iimproved. Continue with skin ointment. 5. Urinary retention. The patient currently has a Jackson catheter in place. 6. Disposition. The patient still requires wrist restraints due to impulsive actions. cc: Caroline Rivero MD [facility]
[2018-10-01] MEDS: FLOMAX PO SCH (22:35)
[2018-10-01] MEDS: ZYRTEC PO SCH (22:35)
[2018-10-01] MEDS: ROCEPHIN 1 GM in NS 50 ML IV SCH (22:36)
[2018-10-01] MEDS: DIFLUCAN 100 MG/NS 100 MG/50 ML IVPB IV SCH (23:06)
[2018-10-02] MEDS: D5W 1,000 ML IV SCH ×2 (03:13→13:44)
[2018-10-02 07:57] LABS: BASO# 0.04 X1000 (0.0-0.2); BASO% 0.5 % (0.0-0.8); EOS# 0.27 X1000 (0.0-0.7); EOS% 3.5 % (0.0-10.0); HEMATOCRIT 32.8 % (37.0-47.0); HEMOGLOBIN 10.8 g/dL (12.0-16.0); LYMPH# 2.58 X1000 (1.2-3.4); LYMPH% 33.2 % (20.5-51.1); MCH 32.1 PG (27-31); MCHC 32.9 g/dL (33-37); MCV 97.6 FL (81-99); MONO# 0.43 X1000 (0.11-0.59); MONO% 5.5 % (1.7-9.3); MPV 9.3 FL (7.4-10.4); NEUT# 4.44 X1000 (1.4-6.5); NEUT% 57.3 % (42.2-75.2); PLT 202 X1000 (130-400); RBC 3.36 XMIL (4.2-5.4); RDW 13.7 % (11.5-14.5); WBC 7.76 X1000 (4.8-10.8)
[2018-10-02 08:12] LABS: AGAP 11; BUN 4 mg/dL (8-22); CALCIUM 8.8 mg/dL (8.8-10.2); CHLORIDE 106 mmol/L (98-107); COSMO 278; CREATININE 0.8 mg/dL (0.5-0.9); ESTIMATED GFR > 60; GLUCOSE 97 mg/dL (70-104); POTASSIUM 3.5 mmol/L (3.5-5.1); SODIUM 141 mmol/L (136-145); TCO2 24 mmol/L (25-35)
[2018-10-02] MEDS: VITAMIN B-1 PO SCH (10:10)
[2018-10-02] MEDS: LOVENOX SUBQ SCH (10:10)
[2018-10-02] MEDS: NEPHROCAPS PO SCH (10:10)
[2018-10-02] MEDS: KENALOG 0.1% OINTMENT TOP SCH ×2 (10:11→20:14)
[2018-10-02] MEDS: VASELINE TOP SCH (10:11)
[2018-10-02] MEDS: AQUAPHOR OINTMENT TOP SCH ×2 (10:11→20:14)
[2018-10-02] MEDS: NIACIN PO SCH ×2 (10:11→20:14)
[2018-10-02] MEDS: PROTONIX IV SCH (13:46)
--- NOTE | 2018-10-02 18:36 | PROGRESS NOTE ---
DATE: 10/02/2018 SUBJECTIVE: The patient is resting comfortably in bed. No acute events noted overnight. She is still in wrist restraints due to impulsive behavior. OBJECTIVE: Vital Signs: Temperature 98.6, blood pressure 114/81, heart rate 80, respirations 17, O2 saturation 99% on room air. General: This is a young female lying in bed in no acute distress. Heart: S1, S2 normal. Regular rate and rhythm. Lungs: Equal air entry bilaterally. No crackles. No rales. Abdomen: Positive bowel sounds. Soft, nontender, nondistended. Extremities: No edema, no cyanosis. Neurologic: The patient is awake and alert. She does answer to her name. LABS: Reviewed. ASSESSMENT AND PLAN: 1. Wernicke encephalopathy. Continue to monitor for improvement. 2. Pellagra. Continue on niacin. 3. Clostridium difficile colitis. Resolved. 4. Dermatitis, improved. Continue with the skin ointment. 5. Urinary retention. The patient currently has a Jackson catheter in place. 6. Situation depression. Will start zoloft. 7. Disposition: The patient will need placement in rehab or long-term care facility. Lobster Catcher is working on this. I updated the patient's mother over the phone about the patient's medical condition. cc: Caroline Rivero MD [facility]
[2018-10-02] MEDS: DIFLUCAN 100 MG/NS 100 MG/50 ML IVPB IV SCH (20:13)
[2018-10-02] MEDS: FLOMAX PO SCH (20:14)
[2018-10-02] MEDS: ZYRTEC PO SCH (20:14)
[2018-10-02] MEDS: ZOLOFT PO SCH (20:18)
[2018-10-02] MEDS: ROCEPHIN 1 GM in NS 50 ML IV SCH (20:18)
[2018-10-03] MEDS: D5W 1,000 ML IV SCH ×2 (00:05→09:20)
[2018-10-03 08:12] LABS: AGAP 11; BUN 5 mg/dL (8-22); CALCIUM 8.6 mg/dL (8.8-10.2); CHLORIDE 108 mmol/L (98-107); COSMO 283; CREATININE 0.9 mg/dL (0.5-0.9); ESTIMATED GFR > 60; GLUCOSE 76 mg/dL (70-104); POTASSIUM 3.6 mmol/L (3.5-5.1); SODIUM 144 mmol/L (136-145); TCO2 25 mmol/L (25-35)
[2018-10-03] MEDS: NEPHROCAPS PO SCH (09:10)
[2018-10-03] MEDS: LOVENOX SUBQ SCH (09:10)
[2018-10-03] MEDS: VASELINE TOP SCH (09:11)
[2018-10-03] MEDS: NIACIN PO SCH ×2 (09:11→20:18)
[2018-10-03] MEDS: VITAMIN B-1 PO SCH (09:11)
[2018-10-03] MEDS: AQUAPHOR OINTMENT TOP SCH ×2 (09:11→20:18)
[2018-10-03] MEDS: KENALOG 0.1% OINTMENT TOP SCH ×2 (09:11→20:18)
[2018-10-03] MEDS ORDERED: ATARAX PO PRN (10:18)
--- NOTE | 2018-10-03 12:17 | PROGRESS NOTE ---
DATE: 10/03/2018 SUBJECTIVE: The patient is resting comfortably. She is out of wrist restraints. OBJECTIVE: Vital Signs: Temperature 98 degrees, blood pressure 142/82, heart rate 70, respirations 18, O2 saturations 100% on room air. General: This is a young female lying in bed in no acute distress. Heart: S1, S2 normal. Regular rate and rhythm. Lungs: Equal air entry bilaterally. Abdomen: Positive bowel sounds. Soft, nontender, nondistended. Extremities: No edema. No cyanosis. Neurologic: The patient is awake and alert. LABORATORIES: Sodium 144, potassium 3.6, chloride 108, CO2 25, BUN 5, creatinine 0.9, glucose 76. ASSESSMENT AND PLAN: 1. Wernicke encephalopathy. Continue to monitor the patient closely for improvement. 2. Pellagra. Continue on niacin. 3. Dermatitis. Continue with skin ointment. 4. Clostridium difficile colitis. Resolved. 5. Situational depression. Continue on Zoloft. 6. Urinary retention. D/C vargas catheter and assess for ability to void. 7. Disposition. Infantry Operations Specialist is working on rehab placement for the patient. The patient was taken out of wrist restraints this morning. We will monitor her response. cc: Caroline Rivero MD [facility]
[2018-10-03] MEDS: PROTONIX IV SCH (14:42)
[2018-10-03] MEDS: DIFLUCAN 100 MG/NS 100 MG/50 ML IVPB IV SCH (20:18)
[2018-10-03] MEDS: ZOLOFT PO SCH (20:18)
[2018-10-03] MEDS: FLOMAX PO SCH (20:18)
[2018-10-03] MEDS: ZYRTEC PO SCH (20:18)
[2018-10-04 08:03] LABS: HEMATOCRIT 30.9 % (37.0-47.0); HEMOGLOBIN 9.9 g/dL (12.0-16.0); MCH 31.4 PG (27-31); MCV 98.1 FL (81-99); MPV 9.7 FL (7.4-10.4); RBC 3.15 XMIL (4.2-5.4); RDW 13.5 % (11.5-14.5); WBC 7.53 X1000 (4.8-10.8)
[2018-10-04 08:29] LABS: AGAP 10; BUN 5 mg/dL (8-22); CHLORIDE 112 mmol/L (98-107); COSMO 289; CREATININE 0.8 mg/dL (0.5-0.9); ESTIMATED GFR > 60; GLUCOSE 82 mg/dL (70-104); POTASSIUM 3.3 mmol/L (3.5-5.1); SODIUM 147 mmol/L (136-145); TCO2 25 mmol/L (25-35)
[2018-10-04] MEDS: VASELINE TOP SCH (08:39)
[2018-10-04] MEDS: KENALOG 0.1% OINTMENT TOP SCH ×2 (08:39→20:26)
[2018-10-04] MEDS: VITAMIN B-1 PO SCH (08:39)
[2018-10-04] MEDS: LOVENOX SUBQ SCH (08:39)
[2018-10-04] MEDS: NIACIN PO SCH ×2 (08:39→20:26)
[2018-10-04] MEDS: AQUAPHOR OINTMENT TOP SCH ×2 (08:39→20:26)
[2018-10-04] MEDS ORDERED: POTASSIUM CHLORIDE 60 MEQ in NS 500 ML IV ONE (10:00)
[2018-10-04] MEDS: D5W 1,000 ML IV SCH ×2 (11:56→23:52)
[2018-10-04] MEDS: PROTONIX IV SCH (13:03)
[2018-10-04] MEDS: SODIUM CHLORIDE 0.9% INJ SCH (13:04)
[2018-10-04] MEDS ORDERED: MAGNESIUM SULFATE 2 GM/S.W.I. 2 GM/50 ML IVPB IV ONE (14:17)
[2018-10-04] MEDS: ATIVAN IV PRN (15:02)
--- NOTE | 2018-10-04 16:16 | PROGRESS NOTE ---
DATE: 10/04/2018 SUBJECTIVE: The patient is resting comfortably. Her family is present at the bedside. She is awake. According to nursing staff, she is not eating very well or keeping up on her fluid intake. OBJECTIVE: Vital Signs: Temperature 97.5 degrees, blood pressure 133/77, heart rate 78, respirations 18, O2 saturation is 100% on room air. General: This is a young female, sitting up in bed in no acute distress. Heart: S1, S2 normal. Lungs: Clear to auscultation bilaterally. No wheezing. No rales. No rhonchi. Abdomen: Positive bowel sounds. Soft, nontender, nondistended. Extremities: No edema, no cyanosis. Neurologic: The patient is awake and alert. DIAGNOSTIC STUDIES: White blood cell count 7.5, hemoglobin 9.9 hematocrit 30, platelets 201,000. Sodium 147, potassium 3.3, chloride 112, CO2 of 25, BUN 5, creatinine 0.8, glucose 82, magnesium 1.5. ASSESSMENT AND PLAN: 1. Wernicke encephalopathy. Continue to monitor the patient closely for improvement. 2. Pellagra. Continue on niacin. 3. Dermatitis. Improved. Continue with the skin ointment. 4. Clostridium difficile colitis. Resolved. 5. Hypernatremia. The patient is not keeping up with her fluid intake. We will restart D5W at 75 mL an hour. 6. Situational depression. Continue on Zoloft. We will consult [facility] for possible inpatient admission. DISPOSITION: We will consult with [facility] to determine whether the patient would be a candidate for admission. cc: MD KATHLEEN Conway
[2018-10-04] MEDS: ZYRTEC PO SCH (20:26)
[2018-10-04] MEDS: ZOLOFT PO SCH (20:26)
[2018-10-04] MEDS: FLOMAX PO SCH (20:26)
[2018-10-04] MEDS ORDERED: KEFZOL 1 GM/D5W 0 GM/0 ML IVPB ONE (22:13)
[2018-10-04] MEDS: DIFLUCAN 100 MG/NS 100 MG/50 ML IVPB IV SCH (23:51)
[2018-10-05] MEDS ORDERED: NS 0 ML ONE (03:22)
[2018-10-05] MEDS ORDERED: KEFZOL 1 GM/D5W 0 GM/0 ML IVPB ONE (03:42)
[2018-10-05] MEDS: D5W 1,000 ML IV SCH (04:03)
[2018-10-05] MEDS: ATIVAN IV PRN ×3 (05:12→15:38)
[2018-10-05 08:00] LABS: MAGNESIUM 1.9 mg/dL (1.5-2.7); PHOSPHORUS 4.1 mg/dL (2.7-4.5)
[2018-10-05 08:07] LABS: HEMATOCRIT 29.7 % (37.0-47.0); HEMOGLOBIN 9.7 g/dL (12.0-16.0); MCHC 32.7 g/dL (33-37); MPV 9.9 FL (7.4-10.4); RBC 3.03 XMIL (4.2-5.4); RDW 13.5 % (11.5-14.5); WBC 6.72 X1000 (4.8-10.8)
[2018-10-05 08:37] LABS: AGAP 8; BUN 4 mg/dL (8-22); CALCIUM 8.8 mg/dL (8.8-10.2); CHLORIDE 109 mmol/L (98-107); COSMO 282; CREATININE 0.8 mg/dL (0.5-0.9); ESTIMATED GFR > 60; GLUCOSE 95 mg/dL (70-104); POTASSIUM 3.2 mmol/L (3.5-5.1); SODIUM 143 mmol/L (136-145); TCO2 26 mmol/L (25-35)
[2018-10-05] MEDS: AQUAPHOR OINTMENT TOP SCH ×2 (09:37→23:31)
[2018-10-05] MEDS: VITAMIN B-1 PO SCH (09:40)
[2018-10-05] MEDS: KENALOG 0.1% OINTMENT TOP SCH (09:41)
[2018-10-05] MEDS: NIACIN PO SCH ×2 (09:41→23:41)
[2018-10-05] MEDS: VASELINE TOP SCH (09:41)
[2018-10-05] MEDS: LOVENOX SUBQ SCH (09:41)
[2018-10-05] MEDS ORDERED: KLOR-CON PO ONE (10:31)
[2018-10-05] MEDS ORDERED: POTASSIUM CHLORIDE 40 MEQ/SWI 40 MEQ/100 ML IVPB IV ONE (14:43)
[2018-10-05] MEDS: PROTONIX IV SCH (15:41)
[2018-10-05] MEDS: SODIUM CHLORIDE 0.9% INJ SCH (15:41)
--- NOTE | 2018-10-05 16:12 | PROGRESS NOTE ---
DATE: 10/05/2018 SUBJECTIVE: The patient has no major complaints. OBJECTIVE: Blood pressure is 134/78, heart rate of 87, respiratory rate 18, temperature 96.8 degrees.Cardiovascular: Regular rate and rhythm. Pulmonary: Bilateral breath sounds clear to auscultation. Gastrointestinal: Soft, nontender, nondistended. Bowel sounds were positive. Extremities: No clubbing or cyanosis. Lymphatic: No peripheral edema. Neurological: Exam was nonfocal. LABORATORY DATA: White count was 6, hemoglobin 9, hematocrit 29, platelets 186,000. Potassium 3.2. PROBLEM LIST: 1. Wernicke's encephalopathy. We will continue thiamin and follow closely. Really not a significant amount of improvement. She still fairly confused which I am not sure; there has been a big change from baseline. that helpful. 2. Pellagra. She is on niacin supplementation. 3. Clostridium difficile colitis has resolved. 4. Hypernatremia. She is on D5. That has actually improved. DISPOSITION: We are waiting on a psychiatric evaluation. As far as I can tell, that has not happened yet. I am not sure if that was completed or maybe they did not complete it because she had a history of confusion. In any case, we will continue to monitor for improvement. cc: Suresh Kang MD [facility]
--- NOTE | 2018-10-05 17:58 | PROGRESS NOTE ---
DATE: 10/05/2018 SUBJECTIVE: No major overnight events. Nurse reports the patient was more awake earlier today and typically as she is awake she becomes progressively more confused and agitated. He had just given her lorazepam right before I came to see the patient. Overall, she made improvement from initial admission however it seems generally, that she has plateaued for the last week or more. She continues to receive supplemental thiamine p.o. after a course of high-dose IV thiamine. Nurse indicates that sometimes she does not cooperate with taking her p.o. medications however. OBJECTIVE: Vital Signs: She has not been febrile. Temperature was 96.5 degrees today. Blood pressure 136/90, pulse 50s to 80s. General: Ms. Billy is supine in bed. Asleep. She arouses, opens her eyes and looks in my direction when stimulated. She easily drifts back to sleep. She does not follow commands for me today. She states her name and states the hospital but is not otherwise oriented. She states that the year is 1919. She is seen to move her extremities equally. Pupils are miotic 2.5 mm OU and reactive. Gaze is conjugate and forward. I could not get her to participate with extraocular eye movements. I did see at least some horizontal eye movement. DIAGNOSTIC DATA: The patient's initial MRI was on 09/06. She did have a repeat MRI on 09/17 without significant change. No imaging since that time. LABORATORY DATA: Reviewed in the chart. ASSESSMENT AND PLAN: Global encephalopathy which was highly suspicious for Wernicke's encephalopathy. She had initial improvement seen following high-dose thiamine therapy IV but her status has since seemed to plateau for some time now. I would continue with thiamine supplementation and make sure she is able to take that. I think it would be reasonable to repeat the MRI and that can be compared to the initial MRI. cc: Veronica Beltran MD [facility]
[2018-10-05] MEDS: DIFLUCAN 100 MG/NS 100 MG/50 ML IVPB IV SCH (23:32)
[2018-10-05] MEDS: FLOMAX PO SCH (23:42)
[2018-10-05] MEDS: ZYRTEC PO SCH (23:42)
[2018-10-05] MEDS: ZOLOFT PO SCH (23:43)
[2018-10-06] MEDS: KENALOG 0.1% OINTMENT TOP SCH ×3 (04:17→21:35)
[2018-10-06] MEDS: LOVENOX SUBQ SCH (09:58)
[2018-10-06] MEDS: NIACIN PO SCH ×3 (09:58→21:35)
[2018-10-06] MEDS: VASELINE TOP SCH (09:58)
[2018-10-06] MEDS ORDERED: PEPCID IV SCH (10:00)
[2018-10-06] MEDS ORDERED: SODIUM CHLORIDE 0.9% INJ SCH (10:00)
[2018-10-06] MEDS: AQUAPHOR OINTMENT TOP SCH ×2 (10:01→21:34)
[2018-10-06] MEDS: VITAMIN B-1 PO SCH ×2 (10:02→10:30)
[2018-10-06 11:41] LABS: AGAP 14; ALB/GLOB RATIO 0.8; ALBUMIN 2.6 g/dL (3.5-5.0); ALKALINE PHOSPHATASE 98 U/L (32-104); BUN 3 mg/dL (8-22); CALCIUM 9.2 mg/dL (8.8-10.2); CHLORIDE 113 mmol/L (98-107); COSMO 287; CREATININE 0.7 mg/dL (0.5-0.9); ESTIMATED GFR > 60; GLUCOSE 71 mg/dL (70-104); GOT 30 U/L (10-30); GPT 23 U/L (10-36); SODIUM 147 mmol/L (136-145); TCO2 20 mmol/L (25-35); TOTAL BILIRUBIN 0.24 mg/dL (0.20-1.00); TOTAL PROTEIN 5.9 g/dL (6.3-8.3)
[2018-10-06] MEDS ORDERED: D5 1/2 NS 1,000 ML IV SCH (16:15)
--- NOTE | 2018-10-06 16:22 | PROGRESS NOTE ---
DATE: 10/06/2018 SUBJECTIVE: The patient has no major complaints. OBJECTIVE: Blood pressure 108/72, heart rate of 70, respiratory 16, temperature 98.4 degrees and 100% on room air.Cardiovascular: Regular rate and rhythm. Pulmonary: Bilateral breath sounds. Clear to auscultation. GI: Soft, nontender, and nondistended. Bowel sounds are positive. Neurologic: She is much more awake and alert today. LABORATORY DATA: Her sodium is a little bit up 147, but other than that it is pretty stable. Her BUN level is normal, but I am not sure that was not done right before. ASSESSMENT AND PLAN: 1. Encephalopathy: She seems to be doing okay. I am going to start some Risperdal because we need to put her on some sort of medication to control her mental status issues, or she will never leave the hospital. We do not have the consult liaison psychiatry available. 2. Pellagra. She is on niacin. 3. History of C. Difficile colitis by antigen positivity alone. That has resolved. 4. Hypernatremia. Disposition is stable. We will continue to follow. I have added Risperdal. Maybe we can start working on trying to actually get her off some of these medications. She has been on Diflucan for 7 days. DISPOSITION: Pending her clinical status, but we need to get her off medicines IV and just by mouth, and then see if we can try to get her out of restraints. cc: Suresh Kang MD
[2018-10-06 16:55] LABS: AGAP 11; ALB/GLOB RATIO 0.8; ALBUMIN 2.7 g/dL (3.5-5.0); ALKALINE PHOSPHATASE 108 U/L (32-104); BUN 3 mg/dL (8-22); CALCIUM 9.5 mg/dL (8.8-10.2); CHLORIDE 108 mmol/L (98-107); COSMO 276; CREATININE 0.7 mg/dL (0.5-0.9); ESTIMATED GFR > 60; GLUCOSE 72 mg/dL (70-104); GOT 29 U/L (10-30); GPT 23 U/L (10-36); POTASSIUM 4.2 mmol/L (3.5-5.1); SODIUM 141 mmol/L (136-145); TCO2 22 mmol/L (25-35); TOTAL BILIRUBIN 0.28 mg/dL (0.20-1.00); TOTAL PROTEIN 6.1 g/dL (6.3-8.3)
[2018-10-06] MEDS: FLOMAX PO SCH (21:34)
[2018-10-06] MEDS: ZOLOFT PO SCH (21:35)
[2018-10-06] MEDS: RISPERDAL M-TAB PO SCH (21:36)
[2018-10-06] MEDS: ZYRTEC PO SCH (21:36)
[2018-10-07 07:49] LABS: BASO# 0.02 X1000 (0.0-0.2); BASO% 0.3 % (0.0-0.8); EOS% 6.8 % (0.0-10.0); HEMATOCRIT 31.6 % (37.0-47.0); HEMOGLOBIN 10.1 g/dL (12.0-16.0); LYMPH# 2.15 X1000 (1.2-3.4); LYMPH% 36.4 % (20.5-51.1); MCH 31.3 PG (27-31); MCV 97.8 FL (81-99); MONO# 0.35 X1000 (0.11-0.59); MONO% 5.9 % (1.7-9.3); MPV 9.6 FL (7.4-10.4); NEUT# 2.98 X1000 (1.4-6.5); NEUT% 50.6 % (42.2-75.2); PLT 197 X1000 (130-400); RBC 3.23 XMIL (4.2-5.4); RDW 13.8 % (11.5-14.5)
[2018-10-07] MEDS: NIACIN PO SCH ×2 (08:57→21:51)
[2018-10-07] MEDS: RISPERDAL M-TAB PO SCH ×3 (08:58→21:54)
[2018-10-07] MEDS: LOVENOX SUBQ SCH (08:58)
[2018-10-07] MEDS: VITAMIN B-1 PO SCH (08:58)
[2018-10-07] MEDS: AQUAPHOR OINTMENT TOP SCH ×2 (09:14→21:47)
[2018-10-07] MEDS: VASELINE TOP SCH (09:15)
[2018-10-07] MEDS: KENALOG 0.1% OINTMENT TOP SCH ×2 (09:15→21:49)
--- NOTE | 2018-10-07 18:13 | PROGRESS NOTE ---
DATE: 10/07/2018 SUBJECTIVE: Today she is awake. She follows commands. She no major issues, but she is still very confused. She is not sure where she is. She is describing that she needs to go home to be with her mother, that we should grab her cane and help her get up and around. OBJECTIVE: Vital Signs: Blood pressure 113/73, heart rate 60, respiratory 16, temperature 97.9, 98% on room air. Cardiovascular: Regular rate and rhythm. Pulmonary: Bilateral breath sounds, clear to auscultation. Gastrointestinal: Soft, nontender, nondistended. Bowel sounds are positive. Extremity: No clubbing or cyanosis. Lymphatic: No peripheral edema. Neurologic: Nonfocal. LABORATORY DATA: Hemoglobin and hematocrit is 10 and 32 today. PROBLEM LIST: 1. Encephalopathy, which is likely multifactorial, Wernicke's encephalopathy. She is still having some active issues. I did start Risperdal, which I will continue. In fact, I will probably increase it and see how she does. She is on thiamin supplementation. 2. Pellagra. She is on niacin supplements. We will continue to follow. Overall she seems to be improved. DISPOSITION: We are looking at possible rehab transfer. I am going to get a psychiatric evaluation and see if they think that we need to do anything else from that standpoint. Overall, she is doing okay, although is still pretty confused at baseline. Discharge condition pending psychiatric evaluation and possible rehab. We will continue to follow. cc: Suresh Kang MD
[2018-10-07] MEDS: HUMULIN R SUBQ SCH (21:48)
[2018-10-07] MEDS: ZYRTEC PO SCH (21:49)
[2018-10-07] MEDS: FLOMAX PO SCH (21:50)
[2018-10-07] MEDS: ZOLOFT PO SCH (21:51)
[2018-10-08] MEDS: HUMULIN R SUBQ SCH ×4 (05:59→21:00)
[2018-10-08 10:20] LABS: BASO# 0.02 X1000 (0.0-0.2); BASO% 0.3 % (0.0-0.8); EOS# 0.31 X1000 (0.0-0.7); EOS% 4.9 % (0.0-10.0); HEMATOCRIT 32.8 % (37.0-47.0); HEMOGLOBIN 10.6 g/dL (12.0-16.0); LYMPH# 2.13 X1000 (1.2-3.4); LYMPH% 33.4 % (20.5-51.1); MCH 31.8 PG (27-31); MCHC 32.3 g/dL (33-37); MCV 98.5 FL (81-99); MONO# 0.47 X1000 (0.11-0.59); MONO% 7.4 % (1.7-9.3); MPV 10.1 FL (7.4-10.4); NEUT# 3.45 X1000 (1.4-6.5); PLT 160 X1000 (130-400); RBC 3.33 XMIL (4.2-5.4); RDW 13.8 % (11.5-14.5); WBC 6.38 X1000 (4.8-10.8)
[2018-10-08 10:59] LABS: ALLEN TEST YES; BE 0.1 mmoll (-3.0-3.0); BLOOD TYPE ARTERIAL; METHB 1.3 % (0.0-1.5); MODALITY ROOM AIR; O2(CT) 13.4 mL/dL (15.0-23.0); O2HB 95.3 % (95.0-99.0); PCO2(98.6) 43 mmHg (35-45); PO2(98.6) 85 mmHg (60-100); SAMPLE BLOOD; SAO2 98.1 % (95.0-100.0); THB 9.9 g/dL (11.5-17.4); pH(98.6) 7.38 (7.35-7.45)
[2018-10-08 11:09] LABS: AGAP 12; ALB/GLOB RATIO 0.9; ALBUMIN 2.6 g/dL (3.5-5.0); ALKALINE PHOSPHATASE 102 U/L (32-104); BUN 5 mg/dL (8-22); CALCIUM 8.5 mg/dL (8.8-10.2); CHLORIDE 112 mmol/L (98-107); COSMO 288; CREATININE 0.7 mg/dL (0.5-0.9); ESTIMATED GFR > 60; GLUCOSE 73 mg/dL (70-104); GOT 29 U/L (10-30); GPT 21 U/L (10-36); POTASSIUM 3.8 mmol/L (3.5-5.1); SODIUM 147 mmol/L (136-145); TCO2 23 mmol/L (25-35); TOTAL BILIRUBIN 0.21 mg/dL (0.20-1.00); TOTAL PROTEIN 5.5 g/dL (6.3-8.3)
--- NOTE | 2018-10-08 13:29 | Diag Imaging Result Doc PS360 ---
EXAM: MRI BRAIN W/WO CONTRAST INDICATION: encephalopathy COMPARISON: 09/20/2018 FINDINGS: There is no evidence of acute infarct. Increased signal in the periaqueductal region and the inferomedial thalami seen on the original study dated 09/06/2018 consistent with Wernicke encephalopathy has improved and returned to near normal. However, there is increasing signal on T2 and FLAIR in the pontine white matter. 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 Please correlate with a recent history of electrolyte imbalances. The remaining white matter signal is unremarkable. There is no discrete intracranial mass, mass effect, or intracranial hemorrhage. There is no evidence of abnormal intracranial enhancement. The surrounding soft tissues and bony structures are essentially unremarkable. IMPRESSION: 1.Improvement of periaqueductal and thalamic increased signal that was consistent with Wernicke encephalopathy seen on the original MRI dated 09/06/2018, which has now returned to near normal. 2.Increasing signal associated with the pontine white matter in a pattern suggestive of central pontine myelolysis. Please correlate clinically. Electronically signed by Omega Constantino 10/08/2018 1:26 PM
--- NOTE | 2018-10-08 13:57 | DISCHARGE SUMMARY ---
ADMISSION DATE: 09/05/2018 DISCHARGE DATE: 10/08/2018 PCP: None listed. CONSULTATIONS: Dr. Beltran with Neurology. PROCEDURES AND FINDINGS: 1. Abdominal ultrasound 09/05/2018 impression, suggestion of hepatic steatosis, unremarkable abdominal ultrasound otherwise. 2. Chest x-ray 09/05/2018 impression, mildly prominent cardiac silhouette. No definite acute pathology otherwise. 1. Brain MRI 09/06/2018 impression, no evidence of acute intracranial disease. Upon further review there is a pattern highly suggestion of Wernicke encephalopathy. 2. Brain MRI 09/17/2018 impression, no significant change since 09/06/2018. Findings consistent with Wernicke encephalopathy. 1. Chest x-ray 09/21/2018 impression stable borderline cardiomegaly, somewhat shallow inspiration. No other evidence of acute disease. No indication of pneumonia. 2. EKG 09/04/2018 sinus rhythm with short UT, possible anterior infarct, ST and T-wave abnormality, prolonged QT. EKG 09/17/2018 shows normal sinus rhythm, T-wave abnormality, prolonged QT. 3. EEG 09/07/2018 impression abnormal routine EEG due to moderately severe generalized slowing indicative of moderately severe nonspecific encephalopathy. No epileptiform discharges or seizures seen on the current study. This does not rule out underlying seizure disorder. Clinical correlation is recommended. DISCHARGE DIAGNOSES: 1. Encephalopathy. This is likely multifactorial, Wernicke encephalopathy. Risperdal has been started and she is on thiamine supplementation. 2. [place]. She is on ice and supplements. She has improved. 3. Hypokalemia resolved. 4. Urinary tract infection has been treated with Flagyl and Rocephin, this has resolved. 5. Alcohol and nicotine dependence. Cessation has been discussed during hospital stay. HOSPITAL COURSE: Ms. Billy is a 38-year-old female with a past medical history of chronic alcohol dependence who is brought in by her family for 2 weeks of progressively worsening mental status. She drinks about a pint a day per family's report. Around 2 weeks ago her mother took away her alcohol and this coincided with her symptoms of encephalopathy. She became increasingly confused, speaking nonsensically at times and other times having paranoid delusions, picking at her skin and in an air. She had previously come into the emergency room and was diagnosed and treated for urinary tract infection and family reported the symptoms did not improve with antibiotics. She was admitted here at [facility] for toxic metabolic encephalopathy with concern for Wernicke encephalopathy and treated with IV thiamin and consults with Neurology and Psychiatry. Electrolytes were replaced appropriately and urinary tract infection was treated with Rocephin. She also had Trichomonas in her urine and was treated with Flagyl. MRI of the brain showed likely Wernicke encephalopathy. Dr. Beltran with Neurology was consulted and EEG was done on 09/07/2018 with full results as stated above. Results were indicative of moderately severe nonspecific encephalopathy. She continued with high-dose thiamin supplementation and other B vitamin supplementation as well. She required Clinimix for nutrition. MRI of the brain was repeated with results stated above. There is no significant changes since initial 1. She did develop C difficile colitis and was treated with oral vancomycin. She has improved somewhat, although still quite confused. She is stable and safe for discharge to rehab. She will be discharged to [facility]. Her last vital signs were temperature 97.8 degrees, heart rate 70, blood pressure 114/72, O2 saturation 96% on room air. Her last labs, WBC 6.3, hemoglobin 10.6, hematocrit 32.8, and platelets 160,000. Sodium 147, potassium 3.8, BUN 5, creatinine 0.7, calcium 8.5, AST 29, ALT 21, alkaline phosphatase 102. It is also noted the patient has required restraint use during her hospital stay secondary to behavioral issues. The patient has remained restraint free for over 48 hours. DISCHARGE MEDICATIONS: Per Dr. Kang. Please see MAR. FOLLOWUP: Please follow up with PCP within 2 weeks. DISPOSITION: [facility]. Please return to the emergency room for any chest pain, shortness of breath or worsening of symptoms. Dictated by RAE Amin for Suresh Kang MD cc: Veronica Beltran MD Pcp ADAND
--- NOTE | 2018-10-08 16:03 | PROGRESS NOTE ---
DATE: 10/08/2018 SUBJECTIVE: She is sitting up in bed. She looks well. No complaints. She is still kind of baseline confused. OBJECTIVE DATA: 114/72, heart rate 70, respiratory 16, temperature 97.8 degrees.Cardiovascular: Regular rate and rhythm. Pulmonary: Bilateral breath sounds clear to auscultation. GI: Was soft, nontender, nondistended. Bowel sounds are positive. Extremities: No clubbing or cyanosis. Lymphatic: No peripheral edema. LABS: White count 6, hemoglobin and hematocrit 10 and 32, platelets 160,000. Blood gas okay. Sodium 147. Sodium is up a little bit. PROBLEM LIST: 1. Encephalopathy likely Wernicke's. Curiously, I repeated MRI today which showed possible CPM. Now she has had some mild issues with hypernatremia but I cannot tell that she over corrected. Her highest sodium was 152 and it did go to 149 in 30 minutes but I am not entirely sure because then went back up to 151 at 5:15 but she has not had an overcorrection of her sodium and her hypernatremia has been very mild at best not quite sure what to do with that information. I will discuss it with Dr. Hannah and we will follow but clinically she has improved so I think we can probably go home. MRI also suggest that there was Wernicke encephalopathy and it has improved and she has been on thiamine this whole time and will be discharged on thiamine. 2. [place]. She is on niacin and seems to be doing okay. 3. Alcohol abuse. That has resolved so overall patient is clearly improved. We will continue to follow. Anticipate discharge to rehab tomorrow assuming no major changes. cc: Suresh Kang MD
[2018-10-08] MEDS: D5 1/2 NS 1,000 ML IV SCH (17:34)
[2018-10-08] MEDS: VITAMIN B-1 PO SCH (17:40)
[2018-10-08] MEDS: NIACIN PO SCH ×2 (17:40→20:15)
[2018-10-08] MEDS: LOVENOX SUBQ SCH (17:41)
[2018-10-08] MEDS: KENALOG 0.1% OINTMENT TOP SCH ×2 (17:41→20:17)
[2018-10-08] MEDS: VASELINE TOP SCH (17:41)
[2018-10-08] MEDS: AQUAPHOR OINTMENT TOP SCH ×2 (17:41→20:17)
[2018-10-08] MEDS: ZYRTEC PO SCH (20:15)
[2018-10-08] MEDS: ZOLOFT PO SCH (20:15)
[2018-10-08] MEDS: FLOMAX PO SCH (20:15)
[2018-10-08] MEDS ORDERED: RISPERDAL M-TAB PO SCH (21:00)
[2018-10-09 04:35] VITALS: BP 120/89
[2018-10-09] MEDS: D5 1/2 NS 1,000 ML IV SCH (06:06)
[2018-10-09] MEDS: HUMULIN R SUBQ SCH (06:06)
[2018-10-09] MEDS: AQUAPHOR OINTMENT TOP SCH (10:00)
[2018-10-09] MEDS: VASELINE TOP SCH (10:01)
[2018-10-09] MEDS: LOVENOX SUBQ SCH (10:01)
[2018-10-09] MEDS: KENALOG 0.1% OINTMENT TOP SCH (10:01)
[2018-10-09] MEDS: NIACIN PO SCH (10:01)
[2018-10-09] MEDS: VITAMIN B-1 PO SCH (10:01)
== END 2018-10-09 11:47 | DRG 641 ==
LOC: SUPCPDRO → ED 20:19 → SUATTDRO 09-05 11:02 → 3N 09-05 11:02 → ICU 09-07 00:24 → 3N 09-23 16:35
PROVIDERS: ATTEND Internal Medicine
CPT/HCPCS: 36569; 70553; 71010; 71045; 76700; 80048; 80053; 80069; 80074; 80076; 80101; 80196; 80301; 80307; 80320; 80324; 80329; 80345; 80346; 80353; 80358; 80361; 80365; 81001; 82003; 82009; 82055; 82140; 82533; 82550; 82607; 82728; 82746; 82805; 82948; 83540; 83550; 83605; 83735; 83992; 84100; 84132; 84425; 84439; 84443; 84484; 85025; 85027; 85384; 85610; 85730; 86592; 86701; 87040; 87088; 87177; 87205; 87324; 87338; 87389; 87449; 88313; 89055; 93005; 93010; 95816; 96365; 96366; 97110; 97165; 99285; A9270; A9579; C9113; G0431; G0434; G0479; G0480; G6038; G6039; G6040; J0131; J0690; J0696; J1170; J1265; J1450; J1630; J1650; J2060; J2543; J2560; J3411; J3475; J3480; J3486; J7030; J7040; J7042; J7050; J7060; J7070; J7121; S0028; S0030; S0164; XXXXX

== ENCOUNTER 2019-03-08 09:22 | Inpatient (IN) ==
[2019-03-08] MEDS ORDERED: DOPAMINE 800 MG/D5W 800 MG/500 ML IV.SOLN ONE (09:39)
[2019-03-08] MEDS ORDERED: NEO-SYNEPHRINE 50 MG in NS 250 ML IV SCH (09:45)
[2019-03-08] MEDS ORDERED: DIPRIVAN 1% IV ONE (09:45)
[2019-03-08] MEDS ORDERED: DIPRIVAN 1% 1,000 MG/100 ML BOTTLE ONE (09:50)
--- NOTE | 2019-03-08 09:57 | PROVIDER DOCUMENTATION ---
HPI-Cardiopulmonary Arrest - General Stated Complaint: full arrest Time Seen by Provider: 03/08/19 09:39 Allergies/Adverse Reactions: Allergies Allergy/AdvReac Type Severity Reaction Status Date / Time codeine AdvReac ITCHING Verified 09/05/18 10:47 Home Medications: Home Medication List Medication Instructions Recorded Confirmed Last Taken Type Amlodipine Besylate 10 mg PO DAILY 12/17/18 12/17/18 Unknown History Ascorbic Acid [Vitamin C] 1 tab PO DAILY 12/17/18 12/17/18 Unknown History Baclofen 20 mg PO Q8HR 12/17/18 12/17/18 Unknown History Cephalexin 500 mg PO Q6H 12/17/18 12/17/18 Unknown History Clopidogrel [Plavix] 75 mg PO DAILY 12/17/18 12/17/18 Unknown History Folic Acid 1 mg PO DAILY 12/17/18 12/17/18 Unknown History Furosemide 40 mg PO DAILY 12/17/18 12/17/18 Unknown History Iron Polysaccharide Complex [Ezfe 200 mg PO DAILY 12/17/18 12/17/18 Unknown History 200] Lisinopril 10 mg PO DAILY 12/17/18 12/17/18 Unknown History Niacin 500 mg PO BID 12/17/18 12/17/18 Unknown History Potassium Chloride E.r. [Micro-K] 2 tab PO DAILY 12/17/18 12/17/18 Unknown History Terbinafine HCl 250 mg PO DAILY 12/17/18 12/17/18 Unknown History - History of Present Illness-C/P Arrest Initial Comments: brought in by EMS. Per family, she was looking out door, and collapsed. On EMS arival, was pulseless, apneic. Initial rhythm was v-fib. She was defib, given 2 epi, 1 bicarb, Narcan, rhythm chenged to PEA. OSMANY placed, intubated. On arrival here, BS clear with bag ventilation, tachycardic on ascultation, pulse palpable, so OSMANY stopped Reason for Code Blue?: full arrest Witnessed arrest?: Yes Noted by:: family Initial Findings: V. Fib Treatment initiated prior to doctor arrival?: Initiated intubated, Initiated CPR/thumper, Initiated IV fluids, Initiated epinephrine #mg (2), Initiated sodium bicarb # amps (1) Similar Symptoms Previously?: No - Pre-hospital Treatment EMS Initial Findings:: unresponsive Review of Systems - Adult - REVIEW OF SYSTEMS - ADULT ROS:: unobtainable per condition Constitutional: reports: no symptoms reported Eyes: reports: no symptoms reported Past History - Adult - PAST MEDICAL HISTORY-ADULT Review of Records: reports: Medications Reviewed Major Childhood Illnesses: reports: denies history Cardiovascular: reports: CHF, HTN Respiratory: reports: denies history Gastrointestinal: reports: denies history Obstetrical/Gynecological: reports: denies history Genitourinary: reports: denies history Musculoskeletal: reports: denies history Neurological: reports: denies history Endocrine/Immune: reports: denies history Other Conditions: reports: denies history - PRIOR SURGERIES/PROCEDURES Surgical/Procedure History: reports: BTL, - IMMUNIZATION STATUS Childhood Immunizations: See Nurse Assessment Flu Vaccine: See Nurse Assessment - FAMILY HISTORY Family History: reviewed, not pertinent Physical Exam-General - PHYSICAL EXAM-ADULT Initial Vital Signs Reviewed: Yes - CONSTITUTIONAL General Appearance: severe distress, obese, obtunded - EYES Eyes: pink conjunctivae, other (pupils @ 2-3 mm, non reactive) - HEAD, EARS, NOSE, MOUTH & THROAT HENMT: normocephalic/atraumatic, moist mucous membranes, normal ENT inspection, pharynx normal - NECK Neck: supple - RESPIRATORY Respiratory: lungs clear (with bag vent) - CARDIOVASCULAR Cardiovascular: tachycardia - GASTROINTESTINAL (ABDOMEN) Abdominal Exam: soft - MUSCULOSKELETAL Extremity: no pedal edema - SKIN Integumentary: normal color, normal turgor, warm/dry - NEUROLOGIC Neurologic: other (unresponsive to voice, light touch, wild response to pain) - PSYCHIATRIC Psych/Mental Status: other (see above) Progress - PLAN OF CARE/RESULTS Progress/Plan/Lab Results: Vital Signs - 8 hr 03/08/19 09:30 03/08/19 09:31 03/08/19 09:33 Temperature Pulse Rate 133 H Respiratory Rate 14 Blood Pressure 129/98 151/126 142/102 O2 Sat by Pulse Oximetry 100 100 100 03/08/19 09:35 03/08/19 09:37 03/08/19 09:38 Temperature Pulse Rate 137 H 137 H 116 H Respiratory Rate Blood Pressure 129/98 144/120 128/93 O2 Sat by Pulse Oximetry 100 100 100 03/08/19 09:40 03/08/19 09:44 03/08/19 09:45 Temperature Pulse Rate 112 H 107 H 104 H Respiratory Rate Blood Pressure 145/87 151/90 O2 Sat by Pulse Oximetry 100 100 100 03/08/19 09:46 03/08/19 09:49 03/08/19 09:51 Temperature Pulse Rate 106 H 105 H 104 H Respiratory Rate Blood Pressure 125/93 149/101 151/100 O2 Sat by Pulse Oximetry 100 100 100 03/08/19 09:54 03/08/19 09:56 03/08/19 09:58 Temperature Pulse Rate 96 H 98 H 101 H Respiratory Rate Blood Pressure 123/70 104/80 132/62 O2 Sat by Pulse Oximetry 100 100 03/08/19 10:00 03/08/19 10:01 03/08/19 10:04 Temperature Pulse Rate 103 H 101 H 106 H Respiratory Rate Blood Pressure 120/81 129/88 117/83 O2 Sat by Pulse Oximetry 100 100 100 03/08/19 10:06 03/08/19 10:08 03/08/19 10:10 Temperature 95.9 F L Pulse Rate 102 H 108 H Respiratory Rate Blood Pressure 123/84 144/81 O2 Sat by Pulse Oximetry 100 100 03/08/19 10:13 03/08/19 10:15 Temperature Pulse Rate 113 H 112 H Respiratory Rate Blood Pressure 124/95 O2 Sat by Pulse Oximetry 100 100 Laboratory Results - last 24 hr 03/08/19 03/08/19 03/08/19 09:27 09:37 09:37 WBC 18.65 H RBC 4.27 Hgb 11.2 L Hct 36.8 L MCV 86.2 MCH 26.2 L MCHC 30.4 L RDW Std Deviation 16.1 H Plt Count 420 H MPV 8.8 Immature Gran % (Auto) 2.5 H Neut % (Auto) 56.3 Lymph % (Auto) 24.8 [place] % (Auto) 8.8 Eos % (Auto) 7.1 Baso % (Auto) 0.5 Immature Gran # (Auto) 0.46 H Neut # (Auto) 10.51 H Lymph # (Auto) 4.62 H [place] # (Auto) 1.64 H Eos # (Auto) 1.33 H Baso # (Auto) 0.09 PT INR PTT (Actin FS) D-Dimer, Quantitative Specimen Type Sample Site pH pCO2 pO2 HCO3 Base Excess Oxyhemoglobin ABG O2 Sat (Calculated) ABG O2 Saturation ABG Carboxyhemoglobin ABG Methemoglobin Demond Test A-a O2 Difference Total Hemoglobin Lactate Blood Gas Modality Spontaneous Rate FiO2 % Tidal Volume PEEP Sodium 142 Potassium 4.6 Chloride 104 Carbon Dioxide 16 L Anion Gap 22 BUN 7 L Creatinine 1.1 H Estimated GFR/1.73 m2 > 60 BUN/Creatinine Ratio 6 Glucose 291 H Calculated Osmolality 292 Calcium 8.9 Total Bilirubin 0.41 AST 207 H ALT 186 H Alkaline Phosphatase 132 H Troponin T Total Protein 5.7 L Albumin 3.0 L Globulin 2.7 Albumin/Globulin Ratio 1.1 Urine Source Urine Color Urine Turbidity Urine pH Ur Specific [place] Urine Protein Ur Glucose (Stick) Ur Ketones (Stick) Urine Blood Urine Nitrite Urine Bilirubin Urobilinogen Dipstick Urine Leukocytes Urine WBC (Auto) Urine RBC (Auto) U Epithel Cells (Auto) Urine Bacteria (Auto) Urine Opiates Screen PRESUMPTIVE POS A Ur Oxycodone Screen NONE DETECTED Urine Methadone Screen NONE DETECTED Ur Barbiturates Screen NONE DETECTED Ur Phencyclidine Scrn NONE DETECTED Ur Amphetamines Screen NONE DETECTED U Benzodiazepines Scrn NONE DETECTED Urine Cocaine Screen NONE DETECTED U Cannabinoids Screen NONE DETECTED 03/08/19 03/08/19 03/08/19 09:37 09:37 09:57 WBC RBC Hgb Hct MCV MCH MCHC RDW Std Deviation Plt Count MPV Immature Gran % (Auto) Neut % (Auto) Lymph % (Auto) [place] % (Auto) Eos % (Auto) Baso % (Auto) Immature Gran # (Auto) Neut # (Auto) Lymph # (Auto) [place] # (Auto) Eos # (Auto) Baso # (Auto) PT 14.7 INR 1.13 PTT (Actin FS) 30.7 D-Dimer, Quantitative 3.71 H Specimen Type Sample Site pH pCO2 pO2 HCO3 Base Excess Oxyhemoglobin ABG O2 Sat (Calculated) ABG O2 Saturation ABG Carboxyhemoglobin ABG Methemoglobin Demond Test A-a O2 Difference Total Hemoglobin Lactate Blood Gas Modality Spontaneous Rate FiO2 % Tidal Volume PEEP Sodium Potassium Chloride Carbon Dioxide Anion Gap BUN Creatinine Estimated GFR/1.73 m2 BUN/Creatinine Ratio Glucose Calculated Osmolality Calcium Total Bilirubin AST ALT Alkaline Phosphatase Troponin T < 0.010 Total Protein Albumin Globulin Albumin/Globulin Ratio Urine Source CATH Urine Color YELLOW Urine Turbidity CLEAR Urine pH 6.5 Ur Specific [place] 1.013 Urine Protein 300 A Ur Glucose (Stick) 1000 A Ur Ketones (Stick) TRACE A Urine Blood SMALL A Urine Nitrite NEGATIVE Urine Bilirubin NEGATIVE Urobilinogen Dipstick NORMAL Urine Leukocytes NEGATIVE Urine WBC (Auto) 10-20 A Urine RBC (Auto) <10 U Epithel Cells (Auto) >10 A Urine Bacteria (Auto) NEGATIVE Urine Opiates Screen Ur Oxycodone Screen Urine Methadone Screen Ur Barbiturates Screen Ur Phencyclidine Scrn Ur Amphetamines Screen U Benzodiazepines Scrn Urine Cocaine Screen U Cannabinoids Screen 03/08/19 10:00 WBC RBC Hgb Hct MCV MCH MCHC RDW Std Deviation Plt Count MPV Immature Gran % (Auto) Neut % (Auto) Lymph % (Auto) [place] % (Auto) Eos % (Auto) Baso % (Auto) Immature Gran # (Auto) Neut # (Auto) Lymph # (Auto) [place] # (Auto) Eos # (Auto) Baso # (Auto) PT INR PTT (Actin FS) D-Dimer, Quantitative Specimen Type ARTERIAL Sample Site R RADIAL pH 7.27 L pCO2 34 L pO2 366 H HCO3 16.9 L Base Excess -10.3 L Oxyhemoglobin 97.1 ABG O2 Sat (Calculated) 16.9 ABG O2 Saturation 99.8 ABG Carboxyhemoglobin 1.90 ABG Methemoglobin 0.8 Demond Test YES A-a O2 Difference 305.0 Total Hemoglobin 11.7 Lactate 9.00 H* Blood Gas Modality VENTILATOR Spontaneous Rate 16 FiO2 % 100.0 Tidal Volume 500 PEEP 5.0 Sodium Potassium Chloride Carbon Dioxide Anion Gap BUN Creatinine Estimated GFR/1.73 m2 BUN/Creatinine Ratio Glucose Calculated Osmolality Calcium Total Bilirubin AST ALT Alkaline Phosphatase Troponin T Total Protein Albumin Globulin Albumin/Globulin Ratio Urine Source Urine Color Urine Turbidity Urine pH Ur Specific [place] Urine Protein Ur Glucose (Stick) Ur Ketones (Stick) Urine Blood Urine Nitrite Urine Bilirubin Urobilinogen Dipstick Urine Leukocytes Urine WBC (Auto) Urine RBC (Auto) U Epithel Cells (Auto) Urine Bacteria (Auto) Urine Opiates Screen Ur Oxycodone Screen Urine Methadone Screen Ur Barbiturates Screen Ur Phencyclidine Scrn Ur Amphetamines Screen U Benzodiazepines Scrn Urine Cocaine Screen U Cannabinoids Screen Orders Category Date Time Status [place] Cath Insertion ORDERED Care 03/08/19 09:43 Active NG/OG/Feeding Tube Insertion ORDERED Care 03/08/19 09:40 Active Nursing- Obtain EKG ONCE Care 03/08/19 09:40 Active Resuscitation Status Routine Care 03/08/19 11:02 Ordered CHEST-1 VIEW [RAD] Stat Exams 03/08/19 09:40 Completed CHEST/ABD TUBE PLACEMENT [RAD] Stat Exams 03/08/19 09:[address] HEAD W/O CONTRAST [CT] Stat Exams 03/08/19 10:09 Completed ABG [RESP] Routine Lab 03/08/19 10:00 Completed BLOOD CULTURE [BLDCUL] Stat Lab 03/08/19 09:34 Ordered CBC WITH DIFF [HEME] Stat Lab 03/08/19 09:37 Completed COMPREHENSIVE METABOLIC PANEL [CHEM] Stat Lab 03/08/19 09:37 Completed D-DIMER [COAG] Stat Lab 03/08/19 09:37 Completed LACTATE, PLASMA [CHEM] Stat Lab 03/08/19 09:37 Ordered PROTIME WITH INR [COAG] Stat Lab 03/08/19 09:37 Completed PTT [COAG] Stat Lab 03/08/19 09:37 Completed TROPONIN T Stat Lab 03/08/19 09:37 Completed URINALYSIS W/POSS RFLX CULT [URINALYSIS] Stat Lab 03/08/19 09:57 Completed URINE DRUG SCREEN MEDTOX Stat Lab 03/08/19 09:27 Completed 0.9% Sodium Chloride Inj [Ns] 250 ml Med 03/08/19 09:45 Active Phenylephrine [Kuldeep-Synephrine] 50 mg IV As Directed mls/hr Dopamine 800 mg/D5w Med 03/08/19 09:39 Discontinued 800 mg in 500 ml .ROUTE As directed Propofol [Diprivan 1%] Med 03/08/19 09:45 Discontinued 100 mg IV STAT ONE Propofol [Diprivan 1%] Med 03/08/19 09:50 Discontinued 1,000 mg in 100 ml .ROUTE As directed Propofol [Diprivan 1%] Med 03/08/19 09:45 Active 1,000 mg in 100 ml IV As Directed mls/hr Ventilator Order Stat Oth 03/08/19 09:40 Active EKG [EKG] Stat Ther 03/08/19 09:40 Draft Transfer/Admit Order [TRANSFER] Routine Transfer 03/08/19 10:52 Ordered Result Diagrams: 03/08/19 09:37 03/08/19 09:37 - REASSESSMENT Reassessment #2 Time Reassessed: 10:41 (. talked with mother. She requests DNR) Status: other Reassessment #1 Time Reassessed: 10:05 (starting some decorticate posturing. BP still good, will hold pressors) - EKG 1 Time of EKG reading by physician:: 09:47 EKG Read and Signed by:: Skyler Rodriguez EKG Interpretation (*Must complete 3 of following elements*): Normal Rate: 108 Rhythm: Sinus tach QRS: normal ST Wave: normal - XRAY 1 XRAY Study: Chest Impression: Normal (ET in good position, no infiltraqtes, no pneumothorax) 2 XRAY Study: Abdomen (NG in place) - CONSULTS/PCP/HOSPITALIST Notification #1 *Consult/PCP/Hospitalist*: hospitalist dr lawton Time Discussed: 10:15 Consult Disposition: Admit Departure - Departure Date of Disposition Decision: 03/08/19 Time of Disposition Decision: 10:00 DIAGNOSIS: Cardiac arrest Disposition: ADMITTED INPATIENT 09 Certified Medical Emergency: Emergent Condition: Critical - Critical Care Note This patient required my direct & personal management of CC.: Yes Total Time (mins): 45 Critical Care Statement: This patient required my direct personal management to treat or rule out processes, the absence of which, could potentiallly result in sudden, clinically significant life or limb threatening deterioration. Attestation - Physician/ SILVESTRE Attestation Patient care was provided by Advanced Practice Provider:: No The physician spent face to face time with patient:: Yes Advanced Practice Provider documentation review:: Supervising physician onsite and consulted in the evaluation and care of this patient. The physician did have a face to face encounter with the patient.
[2019-03-08] MEDS: DIPRIVAN 1% 1,000 MG/100 ML BOTTLE IV SCH ×4 (10:04→23:36)
--- NOTE | 2019-03-08 10:04 | EKG Report ---
Test Performed on : 03/08/2019 09:44:17 AM Test Reason : arrest Blood Pressure : / mmHG Vent. Rate : 108 BPM Atrial Rate : 108 BPM P-R Int : 130 ms QRS Dur : 082 ms QT Int : 374 ms P-R-T Axes : 066 071 045 degrees QTc Int : 501 ms Sinus tachycardia. Otherwise normal ECG When compared with ECG of 17-SEP-2018 07:17, T wave inversion no longer evident in Inferior leads T wave inversion no longer evident in Anterolateral leads Unconfirmed Result
[2019-03-08 10:10] LABS: ALLEN TEST YES; BE -10.3 mmoll (-3.0-3.0); BLOOD TYPE ARTERIAL; HCO3-(ACT) 16.9 mmoll (20.0-26.0); METHB 0.8 % (0.0-1.5); O2(CT) 16.9 mL/dL (15.0-23.0); O2HB 97.1 % (95.0-99.0); PCO2(98.6) 34 mmHg (35-45); PO2(98.6) 366 mmHg (60-100); SAMPLE BLOOD; SAO2 99.8 % (95.0-100.0); SRATE 16 BPM; THB 11.7 g/dL (11.5-17.4); TVOL 500 mL; pH(98.6) 7.27 (7.35-7.45)
[2019-03-08 10:12] LABS: MODALITY VENTILATOR
--- NOTE | 2019-03-08 10:15 | Diag Imaging Result Doc PS360 ---
EXAM: CHEST/ABD TUBE PLACEMENT 03/08/2019 HISTORY: et tube/ng tube placement TECHNIQUE: Chest and abdomen for NG tube placement COMMENT: There is an NG tube with its tip in the fundus of the stomach. IMPRESSION: NG tube in the stomach. Electronically signed by Sarmad Alvarado 03/08/2019 10:13 AM
--- NOTE | 2019-03-08 10:15 | Diag Imaging Result Doc PS360 ---
EXAM: CHEST-1 VIEW 03/08/2019 HISTORY: intub, and NG TECHNIQUE: AP portable at 1002 COMMENT: There is an endotracheal tube with its tip approximately 4 cm above the mulugeta. There is an NG tube which passes below the diaphragm into the stomach. IMPRESSION: Endotracheal tube and NG tube in satisfactory position. Electronically signed by Sarmad Alvarado 03/08/2019 10:12 AM
[2019-03-08 10:32] LABS: BASO# 0.09 X1000 (0.0-0.2); BASO% 0.5 % (0.0-0.8); EOS# 1.33 X1000 (0.0-0.7); EOS% 7.1 % (0.0-10.0); HEMATOCRIT 36.8 % (37.0-47.0); HEMOGLOBIN 11.2 g/dL (12.0-16.0); IMM GRAN# 0.46 X1000 (0.0-0.04); IMM GRAN% 2.5 % (0.0-0.5); LYMPH# 4.62 X1000 (1.2-3.4); LYMPH% 24.8 % (20.5-51.1); MCH 26.2 PG (27-31); MCHC 30.4 g/dL (33-37); MCV 86.2 FL (81-99); MONO# 1.64 X1000 (0.11-0.59); MONO% 8.8 % (1.7-9.3); MPV 8.8 FL (7.4-10.4); NEUT# 10.51 X1000 (1.4-6.5); NEUT% 56.3 % (42.2-75.2); PLT 420 X1000 (130-400); RBC 4.27 XMIL (4.2-5.4); RDW 16.1 % (11.5-14.5); WBC 18.65 X1000 (4.8-10.8)
[2019-03-08 10:40] LABS: INR 1.13; PROTIME 14.7 Seconds (11.0-16.0); PTT 30.7 Seconds (22.3-41.8)
[2019-03-08 10:49] LABS: UR AMPHETAMINES MT NONE DETECTED (NONE DETECT)
[2019-03-08 10:50] LABS: AGAP 22; ALB/GLOB RATIO 1.1; ALKALINE PHOSPHATASE 132 U/L (32-104); BUN 7 mg/dL (8-22); CALCIUM 8.9 mg/dL (8.8-10.2); CHLORIDE 104 mmol/L (98-107); COSMO 292; CREATININE 1.1 mg/dL (0.5-0.9); ESTIMATED GFR > 60; GLUCOSE 291 mg/dL (70-104); GOT 207 U/L (10-30); GPT 186 U/L (10-36); POTASSIUM 4.6 mmol/L (3.5-5.1); SODIUM 142 mmol/L (136-145); TCO2 16 mmol/L (25-35); TOTAL BILIRUBIN 0.41 mg/dL (0.20-1.00); TOTAL PROTEIN 5.7 g/dL (6.3-8.3)
[2019-03-08 10:50] LABS: UR BARBITUATES MT NONE DETECTED (NONE DETECT); UR BENZODIAZ MT NONE DETECTED (NONE DETECT); UR CANNABIS MEDTOX NONE DETECTED (NONE DETECT); UR COCAINE MT NONE DETECTED (NONE DETECT); UR METHADONE MEDTOX NONE DETECTED (NONE DETECT); UR OPIATES MT PRESUMPTIVE POS (NONE DETECT); UR OXYCODONE MEDTOX NONE DETECTED (NONE DETECT); UR PCP MEDTOX NONE DETECTED (NONE DETECT)
--- NOTE | 2019-03-08 11:04 | Diag Imaging Result Doc PS360 ---
EXAM: CT HEAD W/O CONTRAST 03/08/2019 HISTORY: post arrest TECHNIQUE: This exam was performed using automated exposure control, adjustment of mA or kV according to patient size, and/or use of iterative reconstruction technique. COMMENT: There is an NG tube in the left nasal passage and pharynx. There is no evidence of mass effect or bleed. There is some motion artifact. There is hyperostosis of the calvarium. There is a questionable area of lucency in the posterior limb of the internal capsule and adjacent thalamus on the right which was not appreciable previously at the time the previous study of 08/30/2018. The ponce-white matter contrast is somewhat diminished. There is a mucous retention cyst in the left maxillary sinus. The calvarium appears to be intact. IMPRESSION: Technically suboptimal study due to patient motion. Questionable subacute or chronic ischemia in the posterior limb of the internal capsule on the right and adjacent thalamus. The possibility of mild cerebral edema cannot be excluded based on the current study. Electronically signed by Sarmad Alvarado 03/08/2019 11:02 AM
[2019-03-08 11:12] LABS: URINE SOURCE CATH
[2019-03-08 11:25] LABS: BILIRUBIN URINE NEGATIVE (NEGATIVE); BLOOD URINE SMALL (NEGATIVE); COLOR YELLOW; GLUCOSE URINE 1000 mg/dL (NEGATIVE); KETONE URINE TRACE mg/dL (NEGATIVE); LEUKOCYTES URINE NEGATIVE (NEGATIVE); NITRITE URINE NEGATIVE (NEGATIVE); PH URINE 6.5; PROTEIN URINE 300 mg/dL (NEGATIVE); SP GRAVITY URINE 1.013; TURBIDITY URINE CLEAR (CLEAR); UROBILINOGEN URINE NORMAL (NORMAL)
[2019-03-08 11:27] LABS: UR EPITHELIAL CELLS >10 /HPF (<10); URINE BACTERIA NEGATIVE /HPF; URINE RBC <10 /HPF (<10)
--- NOTE | 2019-03-08 12:16 | HISTORY AND PHYSICAL ---
HISTORY: The patient seen and examined by me [id number]. All the laboratory, vital signs and images were reviewed. As per the family, this patient was standing in front of the door looking outside when she collapsed. They called EMS. I am not quite sure how long she spent from that moment until the EMS's visit. Apparently, she was pulseless, apneic, and her initial rhythm was in ventricular fibrillation. She received a couple of treatments with defibrillator. She received 2 epi, 1 bicarb, and also they gave her Narcan. A Moses device was placed, and she was intubated. When she arrived to the emergency department with bag ventilation, she was tachycardic and they were able to palpate a pulse so the Moses was stopped. She is slightly hypothermic. She is tachycardic. Her blood pressure has been in be in the 120s and 140s, and she is on mechanical ventilation. She is showing some signs of rigidity and internal rotation of her upper extremities. Her pupils are pinpoint, but they are a little bit reactive to the light. She does have some gag reflex at this moment. Her abdomen is a little bit distended. I am not sure if she is painful or not, but she does have some bowel sounds. Extremities: She has a severe dryness of her skin, and 1+ lower extremity edema which is pitting edema. I talked to some of the family members, and I told them the whole situation. I believe they were her sisters. I explained to them that she is remarkably sick, and that there is a high chance of no recovery. EKG showed sinus tachycardia. Chest x-ray showed an endotracheal tube and NG tube in a good position. I do not see any infiltrates, but the heart seems to be enlarged, I do not have an echocardiogram from her previous visit, but we will ask for one. We were told that there is a possibility of heart failure on this patient, but we need to confirm that. This patient will be transferred to the ICU. She does have a past medical history of alcohol abuse, tobacco abuse, and she has been admitted before due to encephalopathy, and urinary tract infection. As per the family, she has stopped already drinking a few months ago. ASSESSMENT AND PLAN: 1. Cardiac arrest, probably this patient had an arrhythmia. She was found having ventricular fibrillation. She was shocked twice with a defibrillator. She received 2 amps of epi and 2 of bicarbonate. She receive Narcan as well. She was brought to the emergency department with a Moses device which has been stopped already because they found pulse, and the blood pressure has been in the 120s to 140s at this moment. She is tachycardic. EKG showed sinus tachycardia. 2. Possible history of CHF. We were told in the emergency department this patient has heart failure, but we do not have any records of that. I do not have a previous echocardiogram so we will ask for it. 3. Strong history of alcohol and tobacco abuse. Aware. She was admitted before for encephalopathy. At that time, they were concerned of Wernicke encephalopathy. 4. Encephalopathy. This patient was unresponsive, but now she is on propofol. 5. Her mother just asked to put this patient DNR. She does not want her to be resuscitated if her heart stops beating again. For now, we will do the whole management. We will get Cardiology Department and pulmonary department as well. We will ask for an echocardiogram. She has not been placed on a hypothermia protocol because she does not qualify for it at this moment. 6. I agree with the rest of the nurse practitioner's assessment and plan. cc: Miah Lord MD
--- NOTE | 2019-03-08 12:29 | PROVIDER PROGRESS NOTE ---
Progress Note Additional Pulmonary note: Case evaluated. Full consult dictation to follow. See CPOE. Evaluation Time > 30 minutes.
--- NOTE | 2019-03-08 13:34 | HISTORY AND PHYSICAL ---
CHIEF COMPLAINT: Per family, the patient was looking out the door and collapsed, when EMS arrived was pulseless and apneic and began the OSMANY protocol. HISTORY OF PRESENTING ILLNESS: This is a 39-year-old -[place] female, who presents to [facility] via EMS after patient states she was looking out the door and collapsed. When EMS arrived, the patient was pulseless and apneic. The initial rhythm per EMS was ventricular fibrillation. She was defibrillated twice, was given 2 epinephrine, 1 bicarb, and a Narcan, rhythm changed to PEA so they placed her on the OSMANY. She was intubated. When she arrived, she was tachycardic on auscultation, pulse was palpable. She had bag ventilation so the OSMANY was stopped. Her pupils were 2-3 mm and nonreactive. She had some decortical posturing noted. Laboratory data showed a white blood cell count of 18.65. Her D- dimer was 3.71. Her AST was 207, ALT 186. Family does state that she has a history of significant alcohol abuse but quit approximately 5-6 months ago, has now been diagnosed with alcoholic cirrhosis according to the family. There is also a question of congestive heart failure on her last admission, which was 09/05/2018. We do not have any history of congestive heart failure so we will work that up to see if that indeed is correct. ER physician did speak with the patient's mother, who stated from this moment on if the patient goes into cardiac arrest or respiratory arrest again she wanted her to be a Do Not Resuscitate level 1 at that point and no further intervention would be done at that time but from this point on we will do everything until she does not have a pulse or a respiration. We did place her as a Do Not Resuscitate level 1 at this time, and she will be admitted to the Intensive Care Unit for further evaluation and treatment. PAST MEDICAL HISTORY: 1. Chronic alcoholism, re-lapping episodes of confusion and altered mental status secondary to the alcoholism. 2. Hypertension. 3. Alcoholic cirrhosis. 4. ETOH abuse. 5. Severe eczema. PAST SURGICAL HISTORY: , tubal ligation, and right ear surgery as a child. FAMILY HISTORY: Reviewed and noncontributory. SOCIAL HISTORY: She is not . She has 2 children and is on Disability. She was a half a pack day smoker but has cutdown according to family to 1 cigarette a day. She has not drank in the last 5-6 months but prior to that drank at least a pint of liquor a day for several years. The family stated she started drinking when she was in her 20s. Denies any illicit drug use. ALLERGIES: Codeine. HOME MEDICATIONS: Will need to be verified but at this time she is n.p.o. but we will try to verify her medications in case we need to restart those. LABORATORY DATA: Showed a white blood cell count of 18.65, hemoglobin 11.2, hematocrit 36.8, platelets 420. PT and INR of 14.7 and 1.13 with a D-dimer of 3.71. ABG on arrival showed a pH of 7.27, pCO2 of 34, pO2 366, bicarb 16.9, and this was on the ventilator settings. Lactate was 9. Sodium 142, potassium 4.6, chloride 104, CO2 16, BUN of 7, creatinine 1.1, glucose 291. AST of 207, ALT 186, alkaline phosphatase 132. Troponin was less than 0.010. Urine drug screen was presumptive positive for opiates. Chest x-ray showed endotracheal tube and NG tube in satisfactory position. EKG showed sinus tachycardia at 108. Head CT is pending. REVIEW OF SYSTEMS: Unable to obtain. PHYSICAL EXAMINATION: VITAL SIGNS: On arrival, she had a pulse of 133, respirations 14, blood pressure 129/98 on 100% mechanical ventilation. GENERAL: This is a 39-year-old -[place] female lying in the bed, unable to answer any questions as she is intubated at this time on propofol. HEEMNT: Normocephalic, atraumatic. Normal ENT inspection. Eyes: Pupils are 2-3 mm and nonreactive initially but are very sluggish at this time. Unable to assess any extraocular movements at this time. LUNGS: Clear to auscultation bilaterally. HEART: She is currently tachycardic but no murmurs, rubs, or gallops. ABDOMEN: Soft, nontender, nondistended. Bowel sounds are present x4 quadrants. MUSCULOSKELETAL: She had some decortical posturing to her bilateral upper extremities. Again, she has severe eczema to her skin. NEUROLOGICAL: Unresponsive to voice, light touch. She has some mild response to pain when she first got here. She has some decortical posturing of her bilateral upper extremities. Unable to do a full neurological exam at this time. ASSESSMENT: 1. Cardiac arrest. 2. Leukocytosis. 3. Elevated D-dimer. 4. Elevated liver function tests with history of alcoholic cirrhosis. PLAN: She will be admitted to the Intensive Care Unit, is on mechanical ventilation. Will consult Pulmonology, Cardiology. She is on a propofol drip and a Kuldeep-Synephrine drip. We will check an echocardiogram today. She is n.p.o. Again, mother was at bedside talking to the ER physician and stated that if the patient codes or stops breathing again she does not want any intervention and wanted her to be a Do Not Resuscitate level 1 at that time, so we will do everything for up to that point but if she does stop breathing or her heart stops then we will let her pass naturally. We will recheck CBC, CMP in the a.m., and she has a NG tube in place. Further orders after seen by attending and consultants. Dictated by RAE Moore for Miah Lord MD cc: RAE Lewis CRNP Omar J. Sosa-Chirinos, MD
[2019-03-08] MEDS: ASPIRIN PO SCH (14:14)
--- NOTE | 2019-03-08 14:18 | CARDIOLOGY CONSULTATION ---
DATE: 03/08/2019 REASON FOR CONSULTATION: Cardiology was consulted for cardiac arrest. HISTORY OF PRESENT ILLNESS: Patient is currently intubated and discussed with the patient's family, the patient was standing in front of her door looking outside when she collapsed. Family could not get her up. They noted her to be gasping for air. They called EMS. EMS arrived and patient was given epinephrine, bicarb, Narcan and CPR was initiated. She was intubated outside the hospital, brought to the emergency room here at [facility]. As far as the patient's family is concerned, the patient's mother states that she was not sure whether there was any seizure like activity. However, there was significant gasping for breath which she had noticed in her daughter. She has multiple medical problems, has been a chronic alcoholic, was recently admitted with altered mental status in the hospital. Chest x-ray showed endotracheal tube in optimum position. There were no infiltrates noted to account for any pneumonia. Electrocardiogram revealed sinus tachycardia. First set of cardiac enzymes were negative. Echocardiogram, please see detailed echocardiogram report, it was preserved left ventricular systolic function, hyperdynamic. REVIEW OF SYSTEMS: Could not be obtained. PAST MEDICAL HISTORY: 1. Chronic alcohol abuse, relapsing episodes of confusion and altered mental status. 2. Nicotine dependence. 3. Alcohol dependence. 4. Severe eczema. 5. She was diagnosed to have a Wernicke encephalopathy. HOME MEDICATIONS: Include iron tablets, multivitamins, baclofen, niacin 500 b.i.d., amlodipine 10, Plavix, lisinopril, Lasix 30, Keflex in capsule. PHYSICAL EXAMINATION: Vital Signs: Blood pressure was 130/80. Patient's heart rate was 118 to 120 beats per minute. Neck: Jugular venous pressure could not be assessed. Cardiovascular: First and second heart sounds were heard. Respiratory system: Normal air entry. Abdomen: Soft. CENTRAL NERVOUS SYSTEM: Could not be assessed. ASSESSMENT AND PLAN: 1. Ms Maddi Billy is a 39-year-old -[place] lady with history of hypertension, chronic alcohol abuse, Wernicke encephalopathy, who had a cardiorespiratory arrest as mentioned above. She was intubated prior to coming to the hospital. Currently, she is intubated. From a cardiac standpoint, we will get serial cardiac enzymes. 2. Her EKG did not reveal any acute ST elevation to suggest myocardial infarction. 3. As far as the etiology of cardiac arrest is concerned, I am not sure at the present time whether it is cardiac or whether there is any associated other issues. We will check a serum alcohol level. Drug screen so far has been unremarkable. Her white counts were elevated and as far as pulmonary embolism is concerned, for a likely etiology, we will get venous Dopplers. 4. As far as Neurological status is concerned, she is posturing. She does have a history of Wernicke encephalopathy. I am not sure whether she has significant anoxic brain injury at the present time, too early to evaluate for that at the present. 5. We will give her aspirin 81 mg to her NG tube.Pt has been made level 1 DNR per family. Thank you for the consult. We will follow hospital course. cc: Abelardo Aguero MD MTDD
[2019-03-08] MEDS: PROTONIX IV SCH (16:47)
[2019-03-08 16:54] LABS: CK INDEX 1.8 (0.0-2.5); CK-MB 11.54 ng/mL (0.0-5.0)
[2019-03-08] MEDS ORDERED: NS 1,000 ML IV SCH (18:00)
[2019-03-08] MEDS: CLINIMIX E 4.25%-5% SOLUTION 1,000 ML IV SCH (18:31)
--- NOTE | 2019-03-08 19:41 | CONSULTATION ---
DATE OF CONSULTATION: 03/08/2019 REASON FOR CONSULT: Encephalopathy. HISTORY OF PRESENT ILLNESS: This is a 39-year-old, female with history of hypertension, chronic alcoholism, Wernicke's encephalopathy, and alcoholic cirrhosis. She was admitted today after she collapsed at home, I believe. When EMS arrived, they found her pulseless and apneic. Initial rhythm per EMS was ventricular fibrillation. She was defibrillated twice, given 2 epinephrine, 1 bicarb, and Narcan was also given. On arrival, she was tachycardic with palpable pulse. She was intubated. Head CT was suboptimal due to motion. There was questionable subacute or chronic ischemia in the posterior limb of the internal capsule on the right and adjacent thalamus. The possibility of mild cerebral edema could not be excluded based on the current study. There was no report of seizure. PAST MEDICAL HISTORY: 1. Chronic alcoholism. 2. Wernicke's encephalopathy. 3. Hypertension. 4. Alcoholic cirrhosis. 5. Eczema. 6. . 7. Tubal ligation. FAMILY HISTORY: Unobtainable. SOCIAL HISTORY: She is not . She has 2 children. She is on disability. She smokes. She has been a chronic alcoholic for many years. ALLERGIES: Listed to codeine. CURRENT MEDICATIONS: Reviewed in the chart. She is on propofol. REVIEW OF SYSTEMS: Unobtainable. PHYSICAL EXAMINATION: She is afebrile, blood pressure current 98/65, pulse 111. She is on the ventilator. Ms. Billy is supine in bed on the ventilator. Eyes are closed. Propofol was held for examination. She squeezes her eyes together and grimaces when her name is called out loud with mild sternal rub. She clenches her eyes tight consistently during passive eye opening. Pupils are miotic, 2 mm, but reactive bilaterally to bright lights. Corneal reflexes are strong bilaterally. I could not consistently get blink to threat. Tone is equal in the limbs. She has some spontaneous movement of her hands witnessed at times while in the room, 1 to 2 out of 5. She intermittently grimaces or chews on the ET tube, and I could not get definite consistent grimace specifically to noxious stimuli of the extremities proximally. Reflexes absent at the wrists and ankles, 1+ at the biceps bilaterally. No clonus. Plantar response is silent. Head CT was suboptimal, showing questionable subacute or chronic ischemia of the posterior limb of the internal capsule on the right and adjacent thalamus. The possibility of mild cerebral edema cannot be excluded based on the current study. LABS: Reviewed in the chart. White count 18. PH 7.27, pCO2 34, pO2 366. She is on the ventilator with FiO2 of 100%. Lactate 9. BUN 7 and creatinine 1.1. AST 207, ALT 186. Lactate 3.4. Urinalysis reviewed, greater than 10 epithelial cells. Toxicology presumptive positive for opiates. Serum ethyl alcohol 0. ASSESSMENT AND PLAN: A 39-year-old female with history of chronic alcohol abuse, Wernicke's encephalopathy, and hypertension, who is status post cardiac arrest earlier today. She is on propofol for sedation. I did not find definite focal findings on exam today. There is preservation of brainstem reflexes. I would continue medical management and close monitoring of her neurologic status with frequent neurologic checks. I would repeat the head CT tomorrow, but have low threshold to repeat sooner if needed. We can otherwise follow clinically. It is early post arrest, but we can certainly consider an EEG. Thank you for the consultation. cc: Veronica Beltran MD MTDJalyn
[2019-03-08 20:47] LABS: CK INDEX 1.5 (0.0-2.5); CK-MB 13.19 ng/mL (0.0-5.0)
--- NOTE | 2019-03-08 21:08 | CONSULTATION ---
DATE OF CONSULTATION: 03/08/2019 REQUESTING PROVIDER: RAE Moore. REASON FOR CONSULTATION: Evaluation and treatment. HISTORY OF PRESENT ILLNESS: This is a 39-year-old female with a medical history of chronic alcoholism, hypertension, alcoholic cirrhosis, nicotine dependence, severe eczema, and Wernicke encephalopathy. Her last admission to our facility was from 09/05/2018 to 10/08/2018 with encephalopathy. She presented to the ER this morning via EMS after family found the patient was collapsed. Per H and P, when EMS arrived the patient was pulseless and apneic. CPR initiated. She was defibrillated twice. She was given 2 epinephrine, 1 bicarb, and 1 Narcan. Her rhythm changed from ventricular fibrillation to PEA, so the patient was placed on OSMANY. She was intubated on site. Upon arrival to the ER, she was tachycardic with palpable pulse. She was found to have some decorticate posturing in the ER. The patient currently is intubated and sedated. She moves her bilateral upper extremities at times. There is no family at the bedside. Per H and P in the ER, the patient's mother changed her code to DNR 1. Lab revealed leukocytosis, mild anemia, elevated D-dimer, uncompensated metabolic acidosis, hyperglycemia, elevated liver function tests, and elevated creatine kinase, CK-MB, and troponin T. Drug screen showed positive to opiates. Chest x-ray is nonsignificant. Head CT without contrast showed questionable subacute or chronic ischemia in the posterior limb of the internal capsule on the right and adjacent thalamus. The possibility of mild cerebral edema cannot be excluded based on the current study. PAST MEDICAL HISTORY: 1. Chronic alcoholism, relapsing episodes of confusion and altered mental status secondary to alcoholism. 2. Hypertension. 3. Alcoholic cirrhosis. 4. Nicotine dependence. 5. Severe eczema. 6. Wernicke encephalopathy per brain MRI on 09/17/2018. 7. Morbid obesity. Current BMI 40.4. PAST SURGICAL HISTORY: 1. . 2. Tubal ligation. 3. Right ear surgery as a child. SOCIAL HISTORY: Per H and P, the patient is not . She has 2 children. She is on disability. She used to smoke a half a pack per day and cut down to 1 cigarette a day prior to last admission. Her current smoking status is unknown. She used to drink at least a pint of liquor a day since she was 20s and quit after last admission. She has no history of illicit drug use. FAMILY HISTORY: Unknown. ALLERGIES: Codeine. REVIEW OF SYSTEMS: Unable to be obtained. PHYSICAL EXAMINATION: Vital Signs: Temperature 97.7, blood pressure 161/101, pulse 122, respiratory rate 21, oxygen saturation 100% on AC mechanical ventilator with spontaneous rate 14, FiO2 of 40%, tidal volume 600, and PEEP 5. General: Morbidly obese lying in bed with no acute distress noted. She moved her bilateral upper extremities at times. She is on Diprivan drip at this time. There is no family at the bedside. HEENT: Atraumatic, normocephalic. Trachea midline. ET tube and NG tube in place. Mucosa pink and slightly dry. Respiratory: Even and unlabored. Symmetrical excursion. Mechanical ventilated. Clear to auscultation bilaterally. Cardiovascular: Tachycardia. S1 and S2 noted. Gastrointestinal: Soft. Obese. Bowel sounds normoactive in all 4 quadrants. Extremities: Severe eczema to all extremities. No pedal edema. No cyanosis. No clubbing noted. Dorsalis pedis 1+ bilaterally. Neurologic status: Minimally responsive to pain stimuli. LAB DATA: White blood cell 18.65, hemoglobin 11.2, hematocrit 36.8, platelet 420,000. Sodium 142, potassium 4.6, chloride 104, carbon dioxide 16, BUN 7, creatinine 1.1, glucose 291. ABG: pH 7.27, pCO2 of 34, pO2 of 366, HCO3 of 16.9, base excess -10.3, oxyhemoglobin 97.1, and lactate 900. IMAGING DATA: Chest x-ray showed ET tube and NG tube in satisfactory positions. ASSESSMENT: This is a 39-year-old female with a medical history of chronic alcoholism, hypertension, alcoholic cirrhosis, nicotine dependence, severe eczema, and Wernicke encephalopathy. She has been admitted since this morning to the ICU with status post cardiac arrest. 1. Acute hypoxic respiratory failure. 2. Cardiac arrest. 3. Do Not Resuscitate 1. 4. Elevated liver functional tests likely secondary to chronic alcoholism- induced alcoholic cirrhosis. 5. Drug screen positive to opiates, which is not on the patient's home medication list. 6. History of nicotine dependence with unknown current smoking status. 7. Morbid obesity. PLAN: 1. Continue AC mechanical ventilator. 2. Follow up with ABG, CBC, BMP, urine culture, blood culture, CK profile, troponin T, and chest x-ray. 3. Dr. Aguero, the linesperson, and Dr. Beltran, the neurologist, are consulted. 4. Daily smoking cessation education when appropriate. 5. Further recommendations pending hospital course. Thank you for the courtesy of this consult. Dictated by RAE Antonio for Jayne Ferris MD cc: RAE Antonio MD [facility]
[2019-03-09] MEDS ORDERED: VANCOMYCIN IV PER PHARMACY MISC SCH (01:15)
[2019-03-09] MEDS ORDERED: VANCOMYCIN 2,400 MG in NS 500 ML IV ONE (02:00)
[2019-03-09] MEDS: DIPRIVAN 1% 1,000 MG/100 ML BOTTLE IV SCH ×8 (02:28→23:26)
[2019-03-09 04:27] LABS: ALLEN TEST YES; BE 1.3 mmoll (-3.0-3.0); BLOOD TYPE ARTERIAL; HCO3-(ACT) 25.9 mmoll (20.0-26.0); METHB 0.9 % (0.0-1.5); O2(CT) 14.5 mL/dL (15.0-23.0); O2HB 96.6 % (95.0-99.0); PCO2(98.6) 40 mmHg (35-45); PO2(98.6) 121 mmHg (60-100); SAMPLE BLOOD; SAO2 98.7 % (95.0-100.0); SRATE 14 BPM; THB 10.5 g/dL (11.5-17.4); TVOL 600 mL; pH(98.6) 7.42 (7.35-7.45)
[2019-03-09 04:28] LABS: MODALITY VENTILATOR
[2019-03-09 05:41] LABS: BASO# 0.01 X1000 (0.0-0.2); BASO% 0.1 % (0.0-0.8); EOS# 0.08 X1000 (0.0-0.7); EOS% 0.7 % (0.0-10.0); HEMATOCRIT 32.5 % (37.0-47.0); HEMOGLOBIN 10.2 g/dL (12.0-16.0); IMM GRAN# 0.02 X1000 (0.0-0.04); IMM GRAN% 0.2 % (0.0-0.5); LYMPH# 1.36 X1000 (1.2-3.4); LYMPH% 12.7 % (20.5-51.1); MCH 26.4 PG (27-31); MCHC 31.4 g/dL (33-37); MCV 84.2 FL (81-99); MONO# 1.52 X1000 (0.11-0.59); MONO% 14.2 % (1.7-9.3); MPV 8.8 FL (7.4-10.4); NEUT# 7.71 X1000 (1.4-6.5); NEUT% 72.1 % (42.2-75.2); PLT 373 X1000 (130-400); RBC 3.86 XMIL (4.2-5.4); RDW 16.2 % (11.5-14.5)
[2019-03-09 06:29] LABS: AGAP 13; ALB/GLOB RATIO 0.8; ALBUMIN 2.8 g/dL (3.5-5.0); ALKALINE PHOSPHATASE 97 U/L (32-104); BUN 10 mg/dL (8-22); CALCIUM 8.2 mg/dL (8.8-10.2); CHLORIDE 111 mmol/L (98-107); COSMO 292; CREATININE 0.7 mg/dL (0.5-0.9); ESTIMATED GFR > 60; GLUCOSE 107 mg/dL (70-104); GOT 94 U/L (10-30); GPT 134 U/L (10-36); POTASSIUM 4.2 mmol/L (3.5-5.1); SODIUM 147 mmol/L (136-145); TCO2 23 mmol/L (25-35); TOTAL BILIRUBIN 0.38 mg/dL (0.20-1.00); TOTAL PROTEIN 6.2 g/dL (6.3-8.3)
[2019-03-09] MEDS: D5W 1,000 ML IV SCH (06:57)
--- NOTE | 2019-03-09 07:14 | Diag Imaging Result Doc PS360 ---
EXAM: CHEST-1 VIEW 03/09/2019 HISTORY: SOB TECHNIQUE: AP portable at [id number] COMMENT: There is an endotracheal tube with its tip slightly below the thoracic inlet and an NG tube which passes below the diaphragm into the stomach. The inspiration is less optimal than on 03/08/2019. There is some questionable atelectasis bilaterally which was not present on the previous study. IMPRESSION: Bibasilar subsegmental atelectasis. Electronically signed by Sarmad Alvarado 03/09/2019 7:12 AM
--- NOTE | 2019-03-09 07:48 | PROGRESS NOTE ---
DATE: 03/09/2019 ADDENDUM: 1. This patient has a positive blood culture 1 out of 2 that showed gram positive cocci. She has been placed already on vancomycin which I agree because her creatinine level now is normal. I will continue to monitor. 2. Hypernatremia. I will stop the normal saline. She also has an elevated chloride level. I will start D5W. 3. Metabolic acidosis, resolved. cc: Miah Lord MD
--- NOTE | 2019-03-09 07:57 | PROGRESS NOTE ---
DATE: 03/09/2019 SUBJECTIVE: This patient is lying in bed. She is still on mechanical ventilation and sedation, but she does have brainstem reflexes. She is grimacing a little bit with pain stimulation and with suctioning. We will repeat the CT scan today and that has been suggested by Neurology Department. Also, I will repeat an echocardiogram. Her sodium level is a little bit high, and I will switch the normal saline for D5W and I will monitor. I will continue with Clinimix for now, but probably I will start feeding this patient through an NG tube later on or tomorrow morning. She does have a positive culture from her blood that showed gram-positive cocci 1/2. She has been placed on vancomycin. We will continue with the same management for now until we have the final sensitivity and bacteria. OBJECTIVE: Vital Signs: Temperature 97.6 degrees, pulse 72, respiratory rate 16, blood pressure 92/54, oxygen saturation 100% on mechanical ventilation. HEENT: Head normocephalic, no trauma. PERRLA. Neck: Supple. No JVD. No masses. Central trachea. Chest: Some crepitus at the bases, otherwise clear to auscultation. No wheezing. No rales. Abdomen: Soft. Slightly distended. Positive bowel sounds. Extremities: Skin is really dry. She does have 1+ pitting edema. Neurological examination: The patient is on mechanical ventilation and sedated, but she grimaces a little bit with pain stimulation and manipulation. LABORATORY: WBC 10.7, hemoglobin 10.2, hematocrit 32.5, platelets 373. Sodium 147, potassium 4.2, chloride 111, bicarbonate 23. BUN 10, creatinine 0.7, glucose 107, calcium 8.2, AST 94, ALT 134, alkaline phosphatase 97, albumin 2.8. ASSESSMENT AND PLAN: 1. Cardiac arrest. Probably this patient had an arrhythmia. She was found having a ventricular fibrillation. She was shocked twice with a defibrillator. She received 2 ampules of epinephrine and 2 of bicarbonate, and apparently she received Narcan as well. She was brought to the emergency department with a Moses device, which was stopped because they found pulse and the blood pressure was more stable. She was tachycardic. Electrocardiogram showed sinus tachycardia. She was intubated before coming to the hospital, and she is still on mechanical ventilation. She is responding to some stimuli and she has brain stem reflexes. I will repeat the CT scan today. 2. Encephalopathy, likely due to the cardiac arrest. I am not sure at this point why this patient had this cardiac arrest, probably because of an arrhythmia. I will repeat an echocardiogram today, and we are doing a new CT scan today suggested by Neurology Department. 3. Possible congestive heart failure. I will repeat the echocardiogram today. The previous echocardiogram is nonconclusive. It looks like we do not have the images to corroborate the information. 4. A strong history of alcohol abuse and tobacco abuse, aware. It looks like she was not drinking anymore per the family. We will continue to monitor. 5. This patient is do not resuscitate level 1. Family has suggested, especially her mother, to not resuscitate if she has a new cardiac arrest. 6. Morbid obesity with a body mass index of 40.4. Aware. 7. Acute hypoxemic respiratory failure. Continue with mechanical ventilation. 8. Elevated liver function tests likely secondary to this new event of the cardiac arrest with decreased blood supply to the liver and chronic alcoholism, but this is getting better. 9. We will continue to monitor this patient in the intensive care unit. She is do not resuscitate. She will have a new CT scan today. She will have a new echocardiogram. I will stop the normal saline and put her on D5W since this patient's sodium level and chloride level are high. Her prognosis is still guarded. CRITICAL CARE TIME: 35 minutes. cc: Miah Lord MD
[2019-03-09] MEDS: ASPIRIN PO SCH (08:18)
--- NOTE | 2019-03-09 08:28 | Extremity Venous Study ---
PROCEDURE NAME: Venous U/S Bilateral Legs - 03/08/2019 RECEIVING SPECIALIST: Lucille. REQUESTING PHYSICIAN: Dr. Aguero. INDICATION: Post cardiac arrest, on ventilator. FINDINGS: Deep and superficial veins of the bilateral lower extremities were visualized along their course. All vessels appear compressible with forward flow and no evidence intraluminal thrombus. SUMMARY: No deep or superficial venous thrombosis noted in the bilateral lower extremities. cc: MD Susanne Crowell PA
[2019-03-09] MEDS: CLINIMIX E 4.25%-5% SOLUTION 1,000 ML IV SCH (13:51)
--- NOTE | 2019-03-09 16:13 | Diag Imaging Result Doc PS360 ---
CT HEAD W/O CONTRAST - 03/09/2019 INDICATION: encephalopathy COMPARISON: 03/08/2019 FINDINGS: The ventricles and sulci are normal in size and contour. No intracranial mass or hemorrhage. The skull is intact. The sinuses mastoids and middle ears are clear. IMPRESSION: Negative exam. This exam was performed using automated exposure control, adjustment of mA or kV according to patient size, and/or use of iterative reconstruction technique Electronically signed by Alfred Tripp 03/09/2019 4:11 PM
[2019-03-09] MEDS: PROTONIX IV SCH (16:27)
[2019-03-09] MEDS: VANCOMYCIN 1,850 MG in NS 500 ML IV SCH (16:27)
[2019-03-10] MEDS: DIPRIVAN 1% 1,000 MG/100 ML BOTTLE IV SCH ×3 (01:38→07:46)
[2019-03-10] MEDS: VANCOMYCIN 1,850 MG in NS 500 ML IV SCH ×2 (03:41→16:24)
[2019-03-10] MEDS: D5W 1,000 ML IV SCH (03:50)
[2019-03-10 04:52] LABS: ALLEN TEST YES; BE -0.1 mmoll (-3.0-3.0); BLOOD TYPE ARTERIAL; HCO3-(ACT) 24.8 mmoll (20.0-26.0); METHB 1.3 % (0.0-1.5); O2(CT) 12.8 mL/dL (15.0-23.0); O2HB 96.1 % (95.0-99.0); PCO2(98.6) 34 mmHg (35-45); PO2(98.6) 117 mmHg (60-100); SAMPLE BLOOD; SAO2 100.6 % (95.0-100.0); SRATE 14 BPM; THB 9.3 g/dL (11.5-17.4); TVOL 600 mL; pH(98.6) 7.45 (7.35-7.45)
[2019-03-10 05:08] LABS: BASO# 0.04 X1000 (0.0-0.2); BASO% 0.5 % (0.0-0.8); EOS# 0.49 X1000 (0.0-0.7); EOS% 6.2 % (0.0-10.0); HEMATOCRIT 31.3 % (37.0-47.0); HEMOGLOBIN 9.7 g/dL (12.0-16.0); LYMPH# 1.15 X1000 (1.2-3.4); LYMPH% 14.5 % (20.5-51.1); MCH 26.3 PG (27-31); MCV 84.8 FL (81-99); MONO# 1.03 X1000 (0.11-0.59); MPV 8.8 FL (7.4-10.4); NEUT# 5.23 X1000 (1.4-6.5); NEUT% 65.8 % (42.2-75.2); PLT 321 X1000 (130-400); RBC 3.69 XMIL (4.2-5.4); RDW 16.2 % (11.5-14.5); WBC 7.94 X1000 (4.8-10.8)
[2019-03-10 06:01] LABS: AGAP 11; BUN 9 mg/dL (8-22); CALCIUM 8.3 mg/dL (8.8-10.2); CHLORIDE 106 mmol/L (98-107); COSMO 276; CREATININE 0.8 mg/dL (0.5-0.9); ESTIMATED GFR > 60; GLUCOSE 98 mg/dL (70-104); POTASSIUM 3.7 mmol/L (3.5-5.1); SODIUM 139 mmol/L (136-145); TCO2 22 mmol/L (25-35)
[2019-03-10 06:10] LABS: MODALITY VENTILATOR
--- NOTE | 2019-03-10 06:52 | Diag Imaging Result Doc PS360 ---
CHEST-1 VIEW - 03/10/2019 INDICATION: SOB COMPARISON: 03/09/2019 FINDINGS: Stable endotracheal tube and nasogastric tube in good position. Stable mild cardiomegaly. Stable linear opacities in the right lung base consistent with atelectasis. No new infiltrates. No large effusion. IMPRESSION: No significant change from prior. Electronically signed by Alfred Tripp 03/10/2019 6:49 AM
--- NOTE | 2019-03-10 07:41 | PROGRESS NOTE ---
DATE: 03/10/2019 SUBJECTIVE: This patient is lying in bed. She is still on mechanical ventilation and sedation. She does have brainstem reflexes. She has me is grimacing and withdrawing with pain, and actually she is also able to open her eyes a little bit with pain stimulation. OBJECTIVE: Vital Signs: Temperature 97.4 degrees, pulse 74, respiratory rate 14, blood pressure 117/78, oxygen saturation 100% on mechanical ventilation. HEENT: Head normocephalic, no trauma. PERRLA. Neck: Supple. No JVD. No masses. Central trachea. Chest: Some crepitus at the bases otherwise clear to auscultation. No wheezing. No rales. Abdomen: Soft. Slightly distended. Positive bowel sounds. Extremities: Skin is very dry. She may have eczema versus pellagra, 1+ pitting edema. Neurological: The patient is on mechanical ventilation and sedated, but she grimaces with pain stimulation and withdrawal with pain as well. She is able to open her eyes a little bit. LABORATORY: WBC 7.9, hemoglobin 9.7, hematocrit 31.3, and platelets 321,000. Sodium 139, potassium 3.7, chloride 106, bicarbonate 22, BUN 9, creatinine 0.8, glucose 98, calcium 8. ASSESSMENT AND PLAN: 1. Cardiac arrest. I am not sure why this patient's heart stopped working, probably this patient had an arrhythmia. She was found having a ventricular fibrillation, she was shocked twice with a defibrillator, she received 2 amps of epinephrine and 2 of bicarbonate, and apparently she received Narcan as well. She was brought to the emergency department with a Moses device which was stopped because they found pulse and the blood pressure was more stable. She was tachycardic though, EKG showed sinus tachycardia. She was intubated before coming to the hospital. She is still on mechanical ventilation, but I believe she is responding really well. We may start weaning this patient off the ventilator probably today. Head CT scan was repeated yesterday 03/09/2019 and is actually negative. 2. Encephalopathy, likely due to the cardiac arrest. CT scan negative. Pending echocardiogram, resolved, Neurology Department is on board. 3. Possible CHF, pending echocardiogram results. As per the family member she apparently has a history of congestive heart failure, but I am not sure. 4. Strong history of alcohol abuse and tobacco abuse, aware. It looks like she was not drinking anymore per the family, but we will continue to monitor. 5. MRSA bacteremia. Continue with vancomycin. Probably we need to ask Infectious Disease Department to evaluate this patient, but will monitor for now. She is getting better. 6. Acute hypoxemic respiratory failure. Continue with mechanical ventilation. Probably with we can start weaning this patient off ventilator. 7. Morbid obesity, aware. 8. Elevated LFTs likely secondary to this new event of the cardiac arrest with decreased blood supply to the liver and chronic alcoholism, this is better. 9. Hypernatremia resolved. She was on D5W and now has been switch to half NS. 10. Nutritional status. I have placed this patient on Clinimix. We may need to start this patient on feeding tube if he is not going to be extubated. 11. Metabolic acidosis, resolved. 12. Acute kidney injury, resolved. CRITICAL CARE TIME: 35 minutes. cc: Miah Lord MD MTDD
[2019-03-10] MEDS: 1/2 NS 1,000 ML IV SCH (07:46)
[2019-03-10] MEDS: CLINIMIX E 4.25%-5% SOLUTION 1,000 ML IV SCH (09:55)
[2019-03-10] MEDS: ASPIRIN PO SCH (09:55)
[2019-03-10] MEDS: HALDOL IV PRN (11:28)
[2019-03-10 11:54] LABS: ALLEN TEST YES; BE -1.7 mmoll (-3.0-3.0); BLOOD TYPE ARTERIAL; HCO3-(ACT) 23.6 mmoll (20.0-26.0); METHB 0.4 % (0.0-1.5); MODALITY VENTILATOR; O2(CT) 14.8 mL/dL (15.0-23.0); O2HB 95.4 % (95.0-99.0); PCO2(98.6) 38 mmHg (35-45); PO2(98.6) 76 mmHg (60-100); SAMPLE BLOOD; SAO2 97.5 % (95.0-100.0); pH(98.6) 7.39 (7.35-7.45)
[2019-03-10] MEDS ORDERED: S2 RACEPINEPHRINE 2.25% ONE (12:16)
[2019-03-10] MEDS ORDERED: S2 RACEPINEPHRINE 2.25% INH ONE ×2 (12:21→22:33)
[2019-03-10] MEDS ORDERED: NS NEB INH SCH ×3 (12:30→22:45)
--- NOTE | 2019-03-10 13:02 | PROGRESS NOTE ---
DATE: 03/10/2019 SUBJECTIVE: Dr. Beltran saw Ms. Billy earlier this week for Neurology consultation. She has previously diagnosed Wernicke encephalopathy. She is currently on a sedation vacation. She continues intubated, mechanically ventilated. OBJECTIVE: At this time, she appears to be awake and alert. She followed some simple commands inconsistently, but definitely did follow commands at times. She turned her eyes left and right with apparent full conjugate lateral eye movements noted. Facial motility is symmetric. She opened and closed her eyes consistently to command. She held up 2 fingers to command. She used each hand purposefully. IMPRESSION: Recent cardiac arrest, global encephalopathy, current level of consciousness seems significantly improved. There is no definite focal finding. There is no definite evidence of brainstem dysfunction. I don't see clinical evidence of increased intracranial pressure to suggest major problem with cerebral edema. I have no new suggestion today and nothing to add to Dr. Beltran's suggestions from a few days ago. Further plans will depend on her clinical course. Thanks for asking Neurology to see Ms. Billy. cc: MD KATHLEEN Gardner III
[2019-03-10] MEDS: XOPENEX NEB INH SCH ×3 (15:40→23:13)
[2019-03-10] MEDS: ATROVENT NEB INH SCH ×3 (15:41→23:13)
[2019-03-10] MEDS: PROTONIX IV SCH (16:24)
[2019-03-10] MEDS: SODIUM CHLORIDE 0.9% INJ SCH (16:24)
[2019-03-10] MEDS ORDERED: SOLU-MEDROL IV ONE (22:32)
[2019-03-11] MEDS: XOPENEX NEB INH SCH ×6 (02:56→23:12)
[2019-03-11] MEDS: ATROVENT NEB INH SCH ×6 (02:56→23:12)
[2019-03-11] MEDS: HALDOL IV PRN ×2 (03:15→17:18)
[2019-03-11] MEDS ORDERED: PHENOBARBITAL IV ONE (03:53)
[2019-03-11] MEDS: 1/2 NS 1,000 ML IV SCH (03:57)
[2019-03-11 05:19] LABS: BASO# 0.02 X1000 (0.0-0.2); BASO% 0.2 % (0.0-0.8); HEMATOCRIT 33.8 % (37.0-47.0); HEMOGLOBIN 10.8 g/dL (12.0-16.0); IMM GRAN# 0.06 X1000 (0.0-0.04); IMM GRAN% 0.6 % (0.0-0.5); LYMPH# 0.58 X1000 (1.2-3.4); LYMPH% 5.6 % (20.5-51.1); MCH 26.7 PG (27-31); MCV 83.5 FL (81-99); MONO# 0.13 X1000 (0.11-0.59); MONO% 1.2 % (1.7-9.3); MPV 8.8 FL (7.4-10.4); NEUT# 9.66 X1000 (1.4-6.5); NEUT% 92.4 % (42.2-75.2); PLT 323 X1000 (130-400); RBC 4.05 XMIL (4.2-5.4); RDW 15.9 % (11.5-14.5); WBC 10.45 X1000 (4.8-10.8)
[2019-03-11] MEDS: VANCOMYCIN 1,850 MG in NS 500 ML IV SCH ×2 (05:20→16:26)
[2019-03-11 05:21] LABS: ALLEN TEST YES; BE -2.2 mmoll (-3.0-3.0); BLOOD TYPE ARTERIAL; METHB 0.8 % (0.0-1.5); O2(CT) 24.6 mL/dL (15.0-23.0); O2HB 93.7 % (95.0-99.0); PCO2(98.6) 38 mmHg (35-45); PO2(98.6) 75 mmHg (60-100); SAMPLE BLOOD; SAO2 96.2 % (95.0-100.0); THB 18.7 g/dL (11.5-17.4); pH(98.6) 7.38 (7.35-7.45)
[2019-03-11 05:23] LABS: MODALITY COOL AEROSOL
[2019-03-11] MEDS: CLINIMIX E 4.25%-5% SOLUTION 1,000 ML IV SCH (05:28)
[2019-03-11 05:52] LABS: AGAP 14; BUN 8 mg/dL (8-22); CALCIUM 8.8 mg/dL (8.8-10.2); CHLORIDE 104 mmol/L (98-107); COSMO 281; CREATININE 0.7 mg/dL (0.5-0.9); ESTIMATED GFR > 60; GLUCOSE 153 mg/dL (70-104); MAGNESIUM 1.8 mg/dL (1.5-2.7); PHOSPHORUS 3.9 mg/dL (2.7-4.5); POTASSIUM 3.9 mmol/L (3.5-5.1); SODIUM 140 mmol/L (136-145); TCO2 22 mmol/L (25-35)
--- NOTE | 2019-03-11 07:01 | Diag Imaging Result Doc PS360 ---
EXAM: CHEST-1 VIEW HISTORY: SOB TECHNIQUE: Chest single view COMPARISON: 03/10/2019 FINDINGS: Poor inspiratory effort. Interval removal of the endotracheal and nasogastric tubes. The heart is prominent. Decreased pulmonary edema. No pleural effusions identified. IMPRESSION: Cardiomegaly. Poor inspiratory effort. Electronically signed by Taj Ortiz 03/11/2019 7:00 AM
[2019-03-11 07:24] LABS: LYMPHS 6 % (21-51); MONO 2 % (1-9); SEGS 92 % (42-75)
--- NOTE | 2019-03-11 09:21 | ECHO REPORT ---
ORDER DATE: 03/08/2019 INTERPRETING PHYSICIAN: Abelardo Aguero MD. ECHOCARDIOGRAPHIC MEASUREMENTS: 1. Interventricular septum 1.6. 2. Left ventricular posterior wall 1.2. 3. Left ventricular diastolic diameter 4.3. 4. Left ventricular systolic diameter 2.7. 5. Left atrium 4.1. SUMMARY OF THE 2-DIMENSIONAL FINDINGS: 1. Normal left ventricular cavity size. Concentric left ventricular hypertrophy. Estimated ejection fraction of 60 to 65 percent. 2. Aortic valve leaflets not well visualized. 3. Pulmonic valve not well visualized. 4. Mitral valve was normal. 5. Tricuspid valve was normal. This is a limited study. 6. Anterior echo-free space suggestive of pericardial fat pad noted. 7. There is no pericardial effusion. 8. Doppler studies were not performed. cc: MD Lilian Mora CRNP
[2019-03-11] MEDS: ASPIRIN PO SCH (09:52)
[2019-03-11] MEDS ORDERED: TYLENOL PO PRN (10:09)
--- NOTE | 2019-03-11 10:51 | PROGRESS NOTE ---
DATE: 03/11/2019 SUBJECTIVE: Ms. Billy has been extubated. OBJECTIVE: This morning, she is awake, alert, attentive. She had brief appropriate conversation with me. I did not test her mental status thoroughly. She followed simple commands including holding up fingers. She was able to gaze left and right, and there was no apparent gaze palsy. Neck is supple. PLAN: I do not have any new thoughts or new suggestions from Neurology standpoint today. Thanks for asking us to see Ms. Billy. cc: Rubin Hannah III, MD
--- NOTE | 2019-03-11 14:45 | PROGRESS NOTE ---
DATE: 03/11/2019 INTERVAL HISTORY: The patient with some fairly significant confusion, agitation last night. Required some sedation. Currently in restraints. This morning remains confused, but more cooperative and pleasant. Afebrile. No significant events on telemetry. Complaining only of bilateral knee pain. The patient was successfully extubated yesterday. One low-grade fever overnight, but has not been repeated. REVIEW OF SYSTEMS: Twelve point review of systems negative, except as per interval history. LABS: WBC 10.4, hemoglobin 10.8, hematocrit 33.8, platelets 323. ABG with pH 7.38, pCO2 38, PO2 is 75 on 40% FiO2. Sodium 140, potassium 3.9. BUN 8, creatinine 0.7, glucose 153. IMAGING: Chest x-ray with poor inspiratory effort, but apparently appears to be decreased pulmonary edema. VITALS: T-max 100.9 degrees, pulse 59, respirations 16, blood pressure 143/70, O2 saturation 99% on room air. PHYSICAL EXAMINATION: General: No acute distress, but mildly anxious appearing. Vitals: As above. HEENT: Normocephalic, atraumatic. Moist mucous membranes. Neck: No cervical adenopathy. Cardiovascular: Minimally bradycardic, but regular. No murmurs noted. Pulmonary: Minimal rales at the bases, otherwise clear to auscultation bilaterally. Abdomen: Soft, nondistended. Bowel sounds positive. Extremities: Peripheral pulses intact. No clubbing or cyanosis. Neurologic: Cranial nerves grossly intact. Moves all extremities. Psychiatric: Awake, alert, but oriented to person only. Largely, but not entirely cooperative. Requires frequent redirection. Skin: Continued eczema. Otherwise, no new rashes or lesions. ASSESSMENT AND PLAN: 1. Cardiac arrest. Primary cause not entirely certain, but patient was found in ventricular fibrillation by [facility], received 2 shocks, 2 amps of epinephrine, 2 ampules of bicarbonate with return of spontaneous circulation. Required intubation then, but was successfully extubated yesterday. No further major cardiac events have been noted since admission. Troponin trended up briefly just after admission, but came back down rapidly. Likely response to arrest, rather than acute coronary syndrome. 2. Metabolic encephalopathy. The patient does have a history of Wernicke's encephalopathy, so baseline is not entirely clear, but was significantly encephalopathic on admission, improving somewhat now. Waking up, but still quite confused and occasionally agitated. No tremulousness or bradycardia to strongly suggest alcohol withdrawal, but will continue to monitor. Neurology on board with no further recommendations currently. 3. Pulmonary edema fairly mild. Echocardiogram with normal ejection fraction. Likely due to arrest rather than congestive heart failure. 4. Alcohol and tobacco abuse. Per family, patient had stopped drinking prior to admission. No clear sign of alcohol withdrawal here, but continue to monitor. 5. Methicillin-resistant Staphylococcus aureus bacteremia on vancomycin, which appears to be sensitive to. Repeat blood cultures being drawn today and no growth to date. Echocardiogram without clear evidence of vegetation. We will likely consult Infectious Disease prior to discharge, but doing well right now. 6. Acute hypoxemic respiratory failure, markedly improved, off of mechanical intubation and weaning oxygen as possible. 7. Morbid obesity, aware. 8. Transaminitis, likely shock liver, although chronic alcohol may be playing a role as well. Significantly improved on last check. 9. Acute kidney injury, resolved. 10. Nutrition: Patient awake, although confused. We will try her on some clears; if she does well, we will advance diet.
[2019-03-11] MEDS ORDERED: ATIVAN IV PRN (14:57)
[2019-03-11] MEDS: SODIUM CHLORIDE 0.9% INJ SCH (15:26)
[2019-03-11] MEDS: PROTONIX IV SCH (15:26)
[2019-03-11] MEDS ORDERED: HALDOL IV PRN (17:53)
[2019-03-11] MEDS ORDERED: BENADRYL IV PRN (17:55)
[2019-03-11] MEDS: ATIVAN IV PRN (18:05)
[2019-03-12] MEDS: 1/2 NS 1,000 ML IV SCH ×2 (00:18→05:03)
[2019-03-12] MEDS: ATIVAN IV PRN ×2 (03:09→15:04)
[2019-03-12] MEDS: CLINIMIX E 4.25%-5% SOLUTION 1,000 ML IV SCH ×2 (03:21→05:03)
[2019-03-12] MEDS: XOPENEX NEB INH SCH ×6 (03:33→23:12)
[2019-03-12] MEDS: ATROVENT NEB INH SCH ×6 (03:34→23:12)
[2019-03-12] MEDS: VANCOMYCIN 1,850 MG in NS 500 ML IV SCH ×2 (03:38→16:10)
[2019-03-12 04:54] LABS: BASO# 0.05 X1000 (0.0-0.2); BASO% 0.5 % (0.0-0.8); EOS# 0.43 X1000 (0.0-0.7); EOS% 4.6 % (0.0-10.0); HEMATOCRIT 32.1 % (37.0-47.0); HEMOGLOBIN 10.1 g/dL (12.0-16.0); IMM GRAN# 0.03 X1000 (0.0-0.04); IMM GRAN% 0.3 % (0.0-0.5); LYMPH# 1.61 X1000 (1.2-3.4); LYMPH% 17.2 % (20.5-51.1); MCH 26.7 PG (27-31); MCHC 31.5 g/dL (33-37); MCV 84.9 FL (81-99); MONO# 1.06 X1000 (0.11-0.59); MONO% 11.3 % (1.7-9.3); MPV 8.9 FL (7.4-10.4); NEUT# 6.16 X1000 (1.4-6.5); NEUT% 66.1 % (42.2-75.2); PLT 280 X1000 (130-400); RBC 3.78 XMIL (4.2-5.4); RDW 15.8 % (11.5-14.5); WBC 9.34 X1000 (4.8-10.8)
[2019-03-12 05:10] LABS: ALLEN TEST YES; BE 0.1 mmoll (-3.0-3.0); BLOOD TYPE ARTERIAL; METHB 1.1 % (0.0-1.5); O2(CT) 13.9 mL/dL (15.0-23.0); O2HB 95.2 % (95.0-99.0); PCO2(98.6) 39 mmHg (35-45); PO2(98.6) 91 mmHg (60-100); SAMPLE BLOOD; SAO2 97.6 % (95.0-100.0); THB 10.3 g/dL (11.5-17.4); pH(98.6) 7.41 (7.35-7.45)
[2019-03-12 05:12] LABS: MODALITY ROOM AIR
[2019-03-12 05:42] LABS: AGAP 13; BUN 10 mg/dL (8-22); CALCIUM 7.6 mg/dL (8.8-10.2); CHLORIDE 107 mmol/L (98-107); COSMO 276; CREATININE 0.7 mg/dL (0.5-0.9); ESTIMATED GFR > 60; GLUCOSE 93 mg/dL (70-104); POTASSIUM 3.7 mmol/L (3.5-5.1); SODIUM 139 mmol/L (136-145); TCO2 19 mmol/L (25-35)
--- NOTE | 2019-03-12 07:25 | Diag Imaging Result Doc PS360 ---
EXAM: CHEST-1 VIEW 03/12/2019 HISTORY: SOB TECHNIQUE: AP portable at 0517 COMMENT: There is cardiomegaly. The inspiration is suboptimal. There is minimal right middle lobe atelectasis. Compared to 03/11/2019 this is slightly worse. IMPRESSION: Cardiomegaly. Right middle lobe atelectasis versus pneumonia. Electronically signed by Sarmad Alvarado 03/12/2019 7:23 AM
[2019-03-12] MEDS: ASPIRIN PO SCH (09:34)
--- NOTE | 2019-03-12 13:11 | PROGRESS NOTE ---
DATE: 03/12/2019 INTERVAL HISTORY: Patient with continued intermittent agitation, but no cardiac events. Remains afebrile. Somewhat somnolent this morning secondary to sedating medications received last night. REVIEW OF SYSTEMS: Difficult to obtain secondary to patient somnolence and confusion, but appears to be largely negative. LABS: WBC 9.3, hemoglobin 10.1, hematocrit 32.1, platelets 280. ABG with pH 7.4, pCO2 39, PO2 91 on room air. Sodium 139, potassium 3.7, bicarbonate 19. BUN 10, creatinine 0.7, glucose 93. Lactate 0.7. IMAGING: Chest x-ray with cardiomegaly right middle lobe with likely atelectasis. VITALS: T-max 98.2 degrees, pulse 80, respirations 15, blood pressure 151/100, O2 saturation 98% on room air. PHYSICAL EXAMINATION: General: No acute distress. Vitals: As above. HEENT: Normocephalic, atraumatic. Moist mucous membranes. Neck: No cervical adenopathy. Cardiovascular: Regular rate and rhythm. No murmurs noted. Pulmonary: Minimal bibasilar crackles, otherwise clear to auscultation. Abdomen: Soft, nontender, nondistended. Bowel sounds positive. Extremities: Peripheral pulses intact. No clubbing or cyanosis. Neurologic: Cranial nerves grossly intact. Has to be frequently redirected, but does move all extremities. No focal deficits seen. Psychiatric: Asleep, but arousable. Does not stay aroused without constant interaction. Requires frequent redirection, but will follow commands. Oriented to person only. Skin: Eczema stable. No new rashes noted. ASSESSMENT AND PLAN: 1. Cardiac arrest. Primary cause remains uncertain. Patient found in ventricular fibrillation. Received 2 shocks, 2 ampules of epinephrine, 2 ampules of bicarbonate with return of spontaneous circulation. Required intubation, but extubated 03/10. No further significant cardiac events or arrhythmias since then. Troponin with slight bump just after admission, but came back down, which is likely response to arrest. 2. Metabolic encephalopathy. Patient with history of alcoholism and Wernicke's encephalopathy, so baseline not entirely clear. We will see if we can get a hold of family to clarify this. Has been waking up well, but continues to be quite confused. Has had no focal neurologic deficits. Has had intermittent significant agitation requiring a fair amount of sedation. Will minimize sedation as much as we can and monitor. 3. Pulmonary edema. Mild echocardiogram with normal ejection fraction, likely due to arrest rather than primary congestive heart failure. 4. Alcohol and tobacco use. Patient reportedly stopped drinking quite a bit prior to admission. No sign of alcohol withdrawal here, but monitor. 5. Methicillin-resistant Staphylococcus aureus bacteremia. Patient on vancomycin, which appears to be sensitive to. Repeat blood cultures drawn on 03/11, no growth to date. Transthoracic echocardiogram without clear evidence of vegetation. We will consult Infectious Disease and see if they think transesophageal echocardiogram will be necessary in her. 6. Acute hypoxemic respiratory failure essentially resolved now. Off mechanical intubation and saturating well without oxygen. 7. Morbid obesity. Aware. 8. Transaminitis likely shock liver, although alcoholism could be playing a role. Was significantly improved on last check. 9. Acute kidney injury, resolved. 10. Nutrition: Patient awake, a little sleepy this morning, but tolerating food. Will advance diet and monitor. DISPOSITION: The patient is status post arrest and intubation, much improved now. Initial inciting event remains not entirely clear. Still quite confused and occasionally agitated. Also with methicillin-resistant Staphylococcus aureus bacteremia. We will get ID on board to see if they think she will need a ERASMO. We will get her out of ICU and try to minimize sedating medication and try to clarify what her baseline mental status is like with her family. If repeat blood cultures remain negative and mental status improves, then may be able to discharge early next week.
[2019-03-12] MEDS: SODIUM CHLORIDE 0.9% INJ SCH (16:10)
[2019-03-12] MEDS: PROTONIX IV SCH (16:10)
[2019-03-13] MEDS: CLINIMIX E 4.25%-5% SOLUTION 1,000 ML IV SCH (01:00)
[2019-03-13] MEDS: ATROVENT NEB INH SCH ×6 (03:22→23:21)
[2019-03-13] MEDS: XOPENEX NEB INH SCH ×6 (03:22→23:21)
[2019-03-13] MEDS: VANCOMYCIN 1,850 MG in NS 500 ML IV SCH ×2 (05:23→16:24)
[2019-03-13] MEDS: 1/2 NS 1,000 ML IV SCH (05:23)
[2019-03-13 06:24] LABS: BASO# 0.04 X1000 (0.0-0.2); BASO% 0.5 % (0.0-0.8); EOS# 0.65 X1000 (0.0-0.7); EOS% 7.5 % (0.0-10.0); HEMATOCRIT 33.6 % (37.0-47.0); HEMOGLOBIN 10.7 g/dL (12.0-16.0); IMM GRAN# 0.03 X1000 (0.0-0.04); IMM GRAN% 0.3 % (0.0-0.5); LYMPH# 1.28 X1000 (1.2-3.4); LYMPH% 14.7 % (20.5-51.1); MCH 26.5 PG (27-31); MCHC 31.8 g/dL (33-37); MCV 83.2 FL (81-99); MONO# 0.95 X1000 (0.11-0.59); MONO% 10.9 % (1.7-9.3); MPV 8.6 FL (7.4-10.4); NEUT# 5.73 X1000 (1.4-6.5); NEUT% 66.1 % (42.2-75.2); PLT 342 X1000 (130-400); RBC 4.04 XMIL (4.2-5.4); RDW 15.1 % (11.5-14.5); WBC 8.68 X1000 (4.8-10.8)
[2019-03-13 06:53] LABS: AGAP 12; BUN 7 mg/dL (8-22); CHLORIDE 104 mmol/L (98-107); COSMO 274; CREATININE 0.6 mg/dL (0.5-0.9); ESTIMATED GFR > 60; GLUCOSE 98 mg/dL (70-104); POTASSIUM 3.8 mmol/L (3.5-5.1); SODIUM 138 mmol/L (136-145); TCO2 22 mmol/L (25-35)
[2019-03-13] MEDS ORDERED: BLISTEX MEDICATED BERRY LIP BALM TOP PRN (08:31)
[2019-03-13] MEDS: ASPIRIN PO SCH (09:08)
--- NOTE | 2019-03-13 12:03 | INFECTIOUS DISEASE CONSULT REP ---
DATE: 03/13/2019 CONCLUSION: The patient has a methicillin-resistant Staph aureus bacteremia which I think originates from a methicillin-resistant Staph aureus right middle lobe pneumonia. The patient appears to have oral candidiasis. RECOMMENDATIONS: I agree with treating the patient with vancomycin. Some of the side effects of the antibiotic, including rash, renal toxicity, and ototoxicity have been explained to the patient. She seemed to understand what I was saying, and she agreed to treatment. I think the patient should have a transesophageal echocardiogram because the transthoracic echocardiogram gave poor visualization of the patient's heart valves. I am going to start the patient on Mycostatin swish and swallow. DISCUSSION: The patient was unable to provide much of a history. Most of what I learned was from information in the computer. She collapsed at her home, and when the EMS arrived, she was pulseless and apneic. The patient has been resuscitated, and she is awake and able to converse. 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 She has had a tubal ligation. She also delivered at least one of her children by section. REVIEW OF SYSTEMS: Unable to be obtained from the patient. PAST MEDICAL HISTORY: Positive for chronic alcoholism, hypertension, alcoholic cirrhosis of the liver, obesity, and severe eczema. PAST SURGICAL HISTORY: The patient has had labor and deliveries and a miscarriage, and also a tubal ligation. She has also had surgery on her right ear as a child. FAMILY HISTORY: Said to be noncontributory. I was unable to obtain it from the patient. SOCIAL HISTORY: The patient is not . She has 2 children. She is on disability. The patient drinks alcoholic beverages, and also smokes cigarettes. She denied using any illicit drugs. The patient does not have any pets at home. She lives with her mother. ALLERGIES: The chart lists an allergy to codeine. HOME MEDICATIONS: Include amlodipine, baclofen, cephalexin, Plavix, furosemide, lisinopril, and terbinafine. IMAGING AND LABORATORY DATA: The patient's CBC shows a white count of 8680, hemoglobin 10.7, and platelet count of 342,000. Creatinine is 0.6. GFR is greater than 60. The patient had positive blood culture for methicillin-resistant Staph aureus on 03/08/2019, and repeat blood cultures drawn on 03/11/2019 are negative at 48 hours. Chest x-ray shows a right middle lobe pneumonia/atelectasis. Head CT scan showed no abnormality. Venous ultrasound study of the leg showed no deeper superficial thrombus. An echocardiogram was done. It was a transthoracic study, and it was a poor study due to poor visualization of the heart valves. PHYSICAL EXAMINATION: Vital Signs: Temperature is 97.5 degrees, pulse 78, respirations 18, blood pressure 147/91. The patient is 5 feet 4 inches tall, and weighs 240 pounds. General: This is an obese, young female. She looks somewhat lethargic. HEENT: She can hear my spoken words and see near objects. She does have a white coating on her tongue. Neck: No meningismus. Lungs: Clear to auscultation. Cardiovascular: Heart rate was regular. I did not hear a murmur. Abdomen: Soft and nontender. Neurologic: The patient is lethargic. She can move her extremities. There is no tremor. Her memory as regarding her medical history was poor. Integument: The patient has scaling of the palms of both hands and also partly on her legs. I believe this is secondary to her eczema. Thank you for the consult. cc: Ulisses Mack MD [facility]
--- NOTE | 2019-03-13 12:18 | PROGRESS NOTE ---
DATE: 03/13/2019 INTERVAL HISTORY: The patient remains confused, although her mental status does appear to be improving slowly. Continued intermittent agitation with some pulling at Jackson and IVs, so has been in restraints. Not as somnolent at this morning. No new complaints. REVIEW OF SYSTEMS: Twelve point review of systems negative except as per interval history. LABS: WBC 8.6, hemoglobin 10.7, hematocrit 33.6, platelets 342,000. Bicarbonate 22, calcium 9. Basic metabolic panel otherwise unremarkable. VITALS: T-max 98.2 degrees, pulse 71, respirations 18, blood pressure 147/91, O2 saturation 100% on room air. PHYSICAL EXAMINATION: General: No acute distress. Vitals: As above. HEENT: Normocephalic, atraumatic. Moist mucous membranes. No cervical adenopathy. Cardiovascular: Regular rate and rhythm. No murmurs noted. Pulmonary: Largely clear to auscultation. Abdomen: Soft, nontender, nondistended. Bowel sounds positive. Extremities: Peripheral pulses intact. No clubbing or cyanosis. Neurologic: Cranial nerves grossly intact. No focal deficits identified. Psychiatric: Awake, alert. Remains oriented to person only but less somnolent. More easily directable. Answering questions and following commands better today. Skin: Dry, scaly patch is stable. No new rashes noted. ASSESSMENT AND PLAN: 1. Cardiac arrest. Primary cause remains uncertain. The patient was found to be in ventricular fibrillation. Received two shocks, two epinephrine, two bicarbonate with return of spontaneous circulation. Required intubation but extubated 03/10/2019 and has done well since then. No further cardiac events or arrhythmias. Troponin with slight bump just after admission but came back down. 2. Metabolic encephalopathy. The patient with a history of alcoholism and Wernicke encephalopathy with unclear baseline. Remains confused but mental status does appear to be improving slowly. No focal neurologic deficits. We will continue to minimize sedating medications as much as we can and monitor. We will give her a Jackson and intravenous fluids today which may help somewhat. 3. Pulmonary edema versus mild pneumonia. Echocardiogram with normal ejection fraction. Suspected due to arrest but on discussion with infectious disease, there was some concern for pneumonia which could be the source of her bacteremia. Already on vancomycin and respiratory status pretty stable, so we will continue monitoring. 4. Alcohol and tobacco use. The patient's family reported that the patient stopped drinking some time prior to admission. No sign of alcohol withdrawal here. 5. Methicillin-resistant Staphylococcus aureus bacteremia. The patient is on vancomycin, which the bacteria is sensitive to. Repeat blood cultures, no growth. Transthoracic echocardiogram without clear evidence of vegetation. Discussed with infectious disease and they think that a transesophageal echocardiogram is warranted. We will try to get that tomorrow for further assessment. 6. Acute hypoxic respiratory failure, essentially resolved now. 7. Morbid obesity. Aware. 8. Transaminitis, likely shock liver, although history of alcoholism could be involved. Improved on last check. 9. Acute kidney injury, resolved. 10. Nutrition. Patient eating well. We will stop Clinimix and monitor. 11. Disposition. The patient's respiratory status markedly improved, otherwise pretty stable. We will try to get a transesophageal echocardiogram tomorrow to further assess heart for endocarditis. If that looks good and patient's mental status continues to improve, may be able to continue discharge. If her mental status continues to be slow to resolve, then may end up needing a stay at rehab.
[2019-03-13] MEDS: MYCOSTATIN SUSP PO SCH ×2 (14:01→18:50)
--- NOTE | 2019-03-13 15:09 | Diag Imaging Result Doc PS360 ---
EXAM: CT THORAX W/O CONTRAST HISTORY: SOB TECHNIQUE: CT chest without contrast COMPARISON: None. FINDINGS: Tiny bilateral pleural effusions. The heart is enlarged. Tiny pericardial effusion. No aortic aneurysm. No enlarged lymph mediastinal nodes. Tiny groundglass infiltrates in the upper lobes. There is basilar atelectasis. Mildly prominent axillary nodes. IMPRESSION: 1.Tiny pleural effusions 2.Cardiomegaly with a tiny pericardial effusion 3.Tiny upper lobe groundglass infiltrates 4.Basilar atelectasis This exam was performed using automated exposure control, adjustment of mA or kV according to patient size, and/or use of iterative reconstruction technique. Electronically signed by Taj Ortiz 03/13/2019 3:07 PM
[2019-03-13] MEDS: PROTONIX IV SCH (16:23)
[2019-03-13] MEDS: SODIUM CHLORIDE 0.9% INJ SCH (16:24)
[2019-03-14] MEDS: MYCOSTATIN SUSP PO SCH ×5 (04:09→23:38)
[2019-03-14] MEDS: VANCOMYCIN 1,850 MG in NS 500 ML IV SCH ×2 (04:27→23:01)
[2019-03-14 06:48] LABS: BASO# 0.06 X1000 (0.0-0.2); BASO% 0.7 % (0.0-0.8); EOS# 0.57 X1000 (0.0-0.7); EOS% 6.5 % (0.0-10.0); HEMOGLOBIN 10.8 g/dL (12.0-16.0); LYMPH# 1.27 X1000 (1.2-3.4); LYMPH% 14.5 % (20.5-51.1); MCH 26.3 PG (27-31); MCHC 31.8 g/dL (33-37); MCV 82.7 FL (81-99); MONO% 13.7 % (1.7-9.3); MPV 8.8 FL (7.4-10.4); NEUT# 5.65 X1000 (1.4-6.5); NEUT% 64.6 % (42.2-75.2); PLT 384 X1000 (130-400); RBC 4.11 XMIL (4.2-5.4); RDW 15.1 % (11.5-14.5); WBC 8.75 X1000 (4.8-10.8)
[2019-03-14 07:20] LABS: AGAP 11; BUN 7 mg/dL (8-22); CALCIUM 8.6 mg/dL (8.8-10.2); CHLORIDE 106 mmol/L (98-107); COSMO 281; CREATININE 0.7 mg/dL (0.5-0.9); ESTIMATED GFR > 60; GLUCOSE 89 mg/dL (70-104); SODIUM 142 mmol/L (136-145); TCO2 25 mmol/L (25-35)
[2019-03-14] MEDS: ASPIRIN PO SCH (08:09)
[2019-03-14] MEDS: ATROVENT NEB INH SCH ×5 (08:38→22:37)
[2019-03-14] MEDS: XOPENEX NEB INH SCH ×5 (08:38→22:37)
[2019-03-14] MEDS ORDERED: ANESTHESIA PB SET 88 IN 5742 ONE (12:24)
[2019-03-14] MEDS ORDERED: NS 1,000 ML ONE (12:24)
[2019-03-14] MEDS ORDERED: DIPRIVAN 1% ONE (12:31)
[2019-03-14] MEDS ORDERED: XYLOCAINE-MPF 2% ONE (12:32)
[2019-03-14] MEDS ORDERED: ROBINUL ONE (12:32)
--- NOTE | 2019-03-14 13:07 | Transesophageal Echocardiogram ---
DATE: 03/14/2019 PROCEDURE: Transesophageal echocardiogram. DESCRIPTION OF PROCEDURE: Informed consent was obtained from the patient and family. The patient was brought to the cardiac catheterization laboratory. The patient's oropharynx was anesthetized using Cetacaine spray, and propofol was given intravenously. Please see detailed anesthesia records. A transesophageal probe was easily passed. Ultrasound pictures were obtained. There were no complications. FINDINGS: 1. Normal left ventricular cavity size. Estimated ejection fraction of 60%. 2. Aortic valve leaflets were trileaflet. 3. Mitral valve was normal. 4. Tricuspid valve was normal. 5. Pulmonic valve was normal. 6. Left atrium was mildly enlarged. Left atrial appendage was normal. 7. Right atrium was normal. 8. There is no aortic stenosis or regurgitation. 9. There is mild mitral regurgitation. 10. Mild tricuspid regurgitation. 11. Ascending aorta was normal. 12. Descending aorta had layered plaque. CONCLUSIONS: 1. There is no vegetation or mass or thrombus or abscess noted. 2. Normal left ventricular cavity size and function. Estimated ejection fraction of 60%. 3. There is mild mitral regurgitation. There is mild tricuspid regurgitation. cc: Abelardo Aguero MD
--- NOTE | 2019-03-14 14:23 | PROGRESS NOTE ---
DATE: 03/14/2019 INTERVAL HISTORY: The patient is status post ERASMO showing no vegetations. Remains oriented to person only, but more awake and cooperative today. No new complaints. No acute events overnight. Family states that this is approximately her baseline mental status at this point. REVIEW OF SYSTEMS: Twelve point review of systems negative except as per interval history. LABS: WBC 8.75, hemoglobin 10.8, hematocrit 34.0, platelets 384,000. Basic metabolic panel unremarkable. IMAGING: ERASMO showing no vegetation, mass, or thrombus. Normal EF. Mild mitral and tricuspid regurgitation. VITAL SIGNS: T-max 98.4 degrees, pulse 67, respirations 16, blood pressure 149/96, O2 saturation 95% on room air. PHYSICAL EXAMINATION: General: No acute distress. Vital signs: As above. HEENT: Normocephalic, atraumatic. Moist mucous membranes. No cervical adenopathy. Cardiovascular: Regular rate and rhythm. No murmurs noted. Pulmonary: Clear to auscultation bilaterally. No wheezing, rales, or rhonchi. Abdomen: Soft, nontender, nondistended. Bowel sounds positive. Extremities: Peripheral pulses intact. No clubbing or cyanosis. Neurologic: Cranial nerves grossly intact. No focal deficits identified. Psychiatric: Awake, alert. Still only oriented to person, but more cooperative and conversant today. Skin: Dry scaly patches, stable. No new rashes noted. ASSESSMENT AND PLAN: 1. Cardiac arrest. Primary cause remains not entirely clear. Patient was found to be in VFib. Received 2 shocks, 2 epinephrine, 2 bicarb with return of spontaneous circulation. Required intubation but extubated 03/10 and has done well since then. No further cardiac events or arrhythmias. Troponin increased slightly just after admission post arrest but came back down. It was never markedly elevated. 2. Metabolic encephalopathy. Patient with history of alcoholism and Wernicke encephalopathy in the past. Remains oriented to person but per family this is approximately her baseline. Definitely improved over the last couple days. 3. Pulmonary edema. There is just mild pneumonia. Echocardiogram with normal EF. Likely due to her arrest. Infectious Disease is seeing patient and favors pneumonia, which is likely the cause of her methicillin-resistant Staphylococcus aureus bacteremia as below. Patient on vancomycin and respiratory status doing well. 4. Methicillin-resistant Staphylococcus aureus bacteremia. Patient on vancomycin. Repeat blood cultures remain negative. ERASMO today with no evidence of vegetation. We will work on getting PICC line so that patient can continue outpatient IV antibiotics. 5. Acute hypoxic respiratory failure, resolved. 6. Morbid obesity. Aware. 7. Transaminitis, likely shock liver. Much improved on last check. 8. Acute kidney injury, resolved. 9. Nutrition. Patient eating well. Off Clinimix. Monitor. 10. Disposition. Patient's respiratory status much improved. Repeat blood cultures negative. ERASMO without vegetation. Obtaining PICC. Initially suspected the patient would need to go to rehab but actually did fairly well with physical therapy. We will try to touch base with family, but may be able to go home with home health once PICC is obtained and outpatient antibiotics are arranged.
[2019-03-14] MEDS: PROTONIX IV SCH (17:31)
--- NOTE | 2019-03-14 17:33 | PROGRESS NOTE ---
DATE: 03/14/2019 SUBJECTIVE: No major overnight events. OBJECTIVE: Vital signs reviewed in the chart. Ms. Billy is sitting up in a chair feeding herself lunch. She is awake and alert, attentive, and there is spontaneity. She is oriented to location and month as well as today's date. She was off on the year and said 2018 initially, but was able to correct with assistance. She is oriented to the President. She follows simple and complex commands. Gaze is conjugate. Ocular movements are full without nystagmus visualized. Face is symmetric with equal activation. She moved her extremities without gross focal deficit. There was no language disturbance on limited bedside testing. ERASMO did not show vegetation, mass, or thrombus. Ejection fraction of 60%. Mild mitral regurgitation and tricuspid regurgitation. Labs reviewed in the chart. Normal sodium, BUN, creatinine, blood glucose. ASSESSMENT AND PLAN: Status post cardiac arrest and global encephalopathy. Much improved from a mental status standpoint. In fact, this is the best I have ever seen her. I recommend continuing managing her medical issues. No new suggestions from a neurology standpoint. Will sign off, but are available if needed. cc: Veronica Beltran MD MTDD
[2019-03-14 18:15] LABS: INR 1.03; PROTIME 13.6 Seconds (11.0-16.0)
--- NOTE | 2019-03-14 19:31 | INFECTIOUS DISEASE PROGRESS NO ---
DATE: 03/14/2019 PRESENT ILLNESS: The patient has a methicillin-resistant Staph aureus bacteremia which I think originated from a methicillin-resistant Staph aureus pneumonia. The patient also has oral candidiasis. MEDICATIONS: The patient is receiving IV vancomycin. This is day 3 of treatment with vancomycin with day 1 being the first day that the patient's blood cultures were negative. PHYSICAL EXAMINATION: Vital Signs: Temperature is 98.1 degrees, pulse 67, respirations 16, blood pressure 149/96. General: This is a chronically ill-appearing young female. She is in no acute distress. Head, eyes, ears, nose, and throat: She can hear my spoken words and see near objects. She has much less white coating of her tongue than she did yesterday. Neck: No stiffness. Lungs: Clear to auscultation. Cardiovascular: Heart rate is regular. Abdomen: Soft and nontender. Neurologic: Patient is lethargic. She did move her extremities to request. There is no tremor. Integument: No rash noted except for some scaling of the superficial layer of skin on both legs. Patient has scaling of the legs and the palms of her hands. LAB AND X-RAY: CT scan shows bilateral upper lobe infiltrates. Creatinine is 0.7. GFR is greater than 60. CBC shows a white count of 8750, hemoglobin 10.8, platelet count 384,000. ASSESSMENT AND PLAN: Patient has methicillin-resistant Staph aureus bacteremia which I think originated from pneumonia with the same organism. She also has oral candidiasis. This is day 3 of treatment with vancomycin. She will have 11 more days to complete a 2-week treatment course. I plan to continue nystatin for as long as the patient is on vancomycin. COMORBIDITIES: The patient is an alcoholic and she also has alcoholic cirrhosis of the liver. She has severe eczema and she is obese. cc: Ulisses Mack MD
[2019-03-15] MEDS: XOPENEX NEB INH SCH ×4 (03:21→17:32)
[2019-03-15] MEDS: ATROVENT NEB INH SCH ×4 (03:21→17:32)
[2019-03-15 07:00] LABS: BASO# 0.03 X1000 (0.0-0.2); BASO% 0.4 % (0.0-0.8); EOS# 0.55 X1000 (0.0-0.7); HEMATOCRIT 32.6 % (37.0-47.0); HEMOGLOBIN 10.1 g/dL (12.0-16.0); IMM GRAN# 0.03 X1000 (0.0-0.04); IMM GRAN% 0.4 % (0.0-0.5); LYMPH# 1.41 X1000 (1.2-3.4); LYMPH% 17.9 % (20.5-51.1); MCH 26.2 PG (27-31); MCV 84.5 FL (81-99); MONO# 0.83 X1000 (0.11-0.59); MONO% 10.5 % (1.7-9.3); MPV 8.9 FL (7.4-10.4); NEUT# 5.04 X1000 (1.4-6.5); NEUT% 63.8 % (42.2-75.2); PLT 400 X1000 (130-400); RBC 3.86 XMIL (4.2-5.4); RDW 15.2 % (11.5-14.5); WBC 7.89 X1000 (4.8-10.8)
[2019-03-15 07:22] LABS: AGAP 11; BUN 8 mg/dL (8-22); CALCIUM 8.3 mg/dL (8.8-10.2); CHLORIDE 106 mmol/L (98-107); COSMO 279; CREATININE 0.7 mg/dL (0.5-0.9); ESTIMATED GFR > 60; GLUCOSE 94 mg/dL (70-104); POTASSIUM 3.9 mmol/L (3.5-5.1); SODIUM 141 mmol/L (136-145); TCO2 24 mmol/L (25-35)
[2019-03-15] MEDS ORDERED: NS 250 ML ONE (08:31)
[2019-03-15] MEDS ORDERED: PLAVIX PO SCH (09:00)
[2019-03-15] MEDS ORDERED: PRINIVIL PO SCH (09:00)
[2019-03-15] MEDS: VANCOMYCIN 1,850 MG in NS 500 ML IV SCH (11:02)
[2019-03-15] MEDS: MYCOSTATIN SUSP PO SCH ×2 (11:02→16:39)
[2019-03-15] MEDS: ASPIRIN PO SCH (11:02)
--- NOTE | 2019-03-15 13:55 | PROGRESS NOTE ---
DATE: 03/15/2019 SUBJECTIVE: This patient seems to be doing better. She was able to walk by herself. She is tolerating p.o., ambulating, having bowel movements. She is answering all my questions. Probably she will be discharged with IV antibiotics either today or tomorrow. OBJECTIVE: Vital Signs: Temperature 98 degrees, pulse 71, respiratory rate 18, blood pressure 150/102, oxygen saturation 100% on room air. HEENT: Head normocephalic, no trauma. PERRLA. Neck: Supple. No JVD. No masses. Central trachea. Chest: Clear to auscultation. No wheezing, no rales. Abdomen: Soft, nontender, nondistended. No hepatosplenomegaly. Extremities: She has dry scale patches. No new rashes. She has edema. Neurological examination: The patient is awake, she is alert, she is oriented to person, and she is able to say her date of today. She wants to go home; she does not want to go to rehab center. She is more cooperative. LABORATORY: WBC 7.8, hemoglobin 10.1, hematocrit 32.6, platelets 400. Sodium 141, potassium 3.9, chloride 106, bicarbonate 24. BUN 8, creatinine 0.7, glucose 94, calcium 8.3. ASSESSMENT AND PLAN: 1. Cardiac arrest. The primary cause remains not entirely clear. She was found to be in ventricular fibrillation. She received 2 shocks, epinephrine, bicarbonate, and after some cardiopulmonary resuscitation, she returned to spontaneous circulation. She was intubated and then extubated, and no further cardiac events or arrhythmia. Cardiology on board. 2. Metabolic encephalopathy. This patient has a clear history of alcoholism with Wernicke encephalopathy in the past. I do believe this is her baseline now. 3. Pulmonary edema, mild. We will continue with the same management. 4. Methicillin-resistant Staphylococcus aureus bacteremia. Continue vancomycin per Infectious Disease Department. Transesophageal echocardiogram did not show any evidence of vegetation. She has a PICC line. 5. Acute hypoxemic respiratory failure, resolved. 6. Morbid obesity. Aware. 7. Transaminitis, likely shock liver. 8. Acute kidney injury, resolved. 9. Nutrition: This patient is eating well. She is not on Clinimix. DISPOSITION: This patient's cardiac and respiratory status is much better. No vegetation on the ERASMO. She had a PICC line placed and hopefully, if everything is okay, she can be discharged today or tomorrow with IV antibiotics. She refused to go to a rehab center. cc: Miah Lord MD
[2019-03-15 15:21] VITALS: BP 162/91
--- NOTE | 2019-03-15 17:30 | INFECTIOUS DISEASE PROGRESS NO ---
DATE: 03/15/2019 PRESENT ILLNESS: Ms. Billy has a Methicillin-resistant Staph aureus bacteremia which we think originated from pneumonia. There is also an oral candidiasis, which is improving. MEDICATIONS: Based on her sterile blood cultures, today is day 4 of treatment with vancomycin for her bacteremia. PHYSICAL EXAMINATION: Vital Signs: Temperature is 98, pulse rate is 71, respiratory rate 18, blood pressure 150/102. O2 saturation is 100% on room air. General: This is a morbidly obese, chronically ill appearing middle aged female. She was sitting up in the chair, currently in no acute distress. HEENT: Atraumatic, normocephalic. Oral mucus membranes are pink and moist. Conjunctivae are pink. Neck: Supple. Trachea is midline. Cardiovascular: Heart rate is regular. S1, S2 noted. Respiratory: Lung sounds are clear in the upper lobes, diminished in the mid and bases. No work of breathing is noted. Abdomen: Soft, obese, and nontender. Bowel sounds are active. Integumentary: Skin is warm and very dry with scaling noted to her bilateral lower extremities and hands. Neurologic: She is awake and alert. She is oriented to person and place. She is able to move all extremities in the chair independently with generalized weakness noted. LABORATORY AND X-RAY: Today, her white count is 7.89, hemoglobin 10.1, platelet count 400,000. Creatinine is 0.7. Estimated GFR is greater than 60. Her blood cultures originally grew a Methicillin-resistant Staph aureus and have been sterile since 03/11/2019. No imaging reports today. ASSESSMENT AND PLAN: Ms. Billy will need 14 days of treatment for her Methicillin-resistant Staph aureus bacteremia. There is also some pneumonia which will also be treated by the vancomycin. The plan will be for her to have 10 more days of vancomycin to complete a two-week treatment for the bacteremia after which time we will see her in the office and recheck a chest x- ray to determine if she will need further treatment as far as pneumonia is concerned. I have talked to the patient about calling our office for any rash, diarrhea, mouth pain, or sores. Her understanding is somewhat limited and she does have her mom coming to help her and [facility] is coming to teach her and her mom how to take the intravenous antibiotics at home. Orders for intravenous antibiotics with vancomycin for the next 10 days have been put into the computer. Also, a prescription for Mycelex vance have been printed out and put on the front of the chart so that she can take that four times a day after meals and at bedtime to prevent any recurrence of the problems with the oral candidiasis. These plans have been discussed with and recommended by Dr. Mack. COMORBIDITIES: Include, CPR on admission, alcoholic cirrhosis of the liver, morbid obesity, congestive heart failure, and encephalopathy. ADDENDUM: The patient has removed her PICC line for the second time, and there is an obvious concern that she will not be compliant with completion of the regimen. The new plan will be to have her family bring her in for daily doses of daptomycin as an outpatient, and will start peripheral lines for access. Dictated by RAE Reed for Ulisses Mack MD cc: Ulisses Mack MD MTD
--- NOTE | 2019-03-17 10:29 | DISCHARGE SUMMARY ---
ADMISSION DATE: 03/08/2019 DISCHARGE DATE: 03/15/2019 DIAGNOSES: 1. Cardiac arrest and patient found to be in ventricular fibrillation. 2. Metabolic encephalopathy in a patient with a history of Wernicke encephalopathy. 3. Mild pulmonary edema. 4. Methicillin-resistant Staphylococcus aureus bacteremia. 5. Acute hypoxemic respiratory failure, resolved. 6. Morbid obesity with a body mass index of 40.4. 7. Acute kidney injury, resolved. 8. Transaminitis secondary to shock liver. DIAGNOSTICS: 1. On 03/08/2019, CT of the head revealed questionable subacute or chronic ischemia in the posterior limb of the internal capsule on the right and adjacent thalamus. Possibility of mild cerebral edema cannot be excluded. 2. On 03/09/2019, CT of the head revealed a negative exam. 3. Echocardiogram revealed normal left ventricular cavity size with concentric left ventricular hypertrophy, with an estimated ejection fraction of 60-65%. No pericardial effusion. 4. On 03/14/2019, transesophageal echocardiogram revealed no vegetation or mass or thrombus or abscess noted. Normal left ventricular cavity size and function, estimated ejection fraction 60%. MICROBIOLOGY: 1. Urine culture revealed no growth. 2. Blood culture on 03/08/2019, MRSA. 3. Blood cultures on 03/11/2019 revealed no growth after 48 hours x2 cultures. CONSULTANTS: 1. Dr. Ferris, pulmonology. 2. Dr. Beltran, neurology. 3. Cardiology, Dr. Aguero. 4. Infectious disease, Dr. Ulisses Mack. HOSPITAL COURSE: Ms. Billy presented to the emergency room via EMS in a ventricular fibrillation arrest. She was intubated at the scene. She did have return of spontaneous circulation. She has had no further cardiac events or arrhythmia. She does have a clear history of Wernicke encephalopathy. According to the family, she was at her baseline on discharge. She was found to have methicillin-resistant Staphylococcus aureus bacteremia. A PICC line was placed twice, both of which she pulled out. Dr. Ulisses Mack of infectious disease was consulted. He recommended a regimen and due to the patient pulling her PICC out, Dr. Mack did discuss with the patient's mother, with whom the patient lives, that she did need 10 more days of antibiotics to complete her treatment. It was decided that the mother would bring the patient in daily for 10 days for daptomycin, starting peripheral lines for access. The patient and mother did agree to this. Kidney function returned to normal. The patient was walking by herself, tolerating p.o. intake, having bowel movements, and, thankfully, she is ready to be discharged. DISCHARGE VITAL SIGNS: Blood pressure is 162/91, with a heart rate of 64, respirations 18, temperature 97.6 degrees, with room air saturations 100. DISCHARGE PHYSICAL EXAMINATION: Cardiovascular: Regular rate and rhythm. S1 and S2 appreciated. Calves nontender bilaterally, with peripheral pulses palpable x4 extremities. Pulmonary: Breath sounds are clear bilaterally. Chest rises and falls symmetric with respiration. Gastrointestinal: Abdomen is soft, nontender, nondistended. Bowel sounds in all 4 quadrants. No hepatosplenomegaly. Neurologic: She is awake, alert, and oriented to person and family members. She knows her birthday. The patient refused to go to rehab. DISCHARGE MEDICATIONS: 1. Potassium 16 mEq p.o. daily. 2. Niacin 500 mg p.o. b.i.d. 3. Lisinopril 10 mg p.o. daily. 4. Iron 200 mg p.o. daily. 5. Lasix 40 mg p.o. daily. 6. Folic acid 1 mg p.o. daily. 7. Mycelex troches a.c. and bedtime for 12 days. 8. Plavix 75 mg p.o. daily. 9. Vitamin C 1 tablet p.o. daily. FOLLOWUP: 1. Dr. Ulisses Mack on March 24 at 9:[address] Aguero. His office will call and schedule a followup. 3. RAE Lewis. The patient needs to call to schedule a followup appointment. 4. Infusion clinic daily x10 days for daptomycin infusions. She is being discharged home with her mother in stable condition. The patient and the mother were instructed that she needs to call to be seen sooner or return to the ER for any syncope, dizziness, chest pain, palpitations, temperature greater than 101, any nausea, vomiting, diarrhea, constipation, black or bloody vomitus or stools, any hematuria, dysuria, frequency, urgency, or for any questions or concerns that they may have. TIME SPENT: This is a greater than 30 minute discharge. Dictated by RAE Coker for Miah Lord MD cc: RAE Coker MD
== END 2019-03-15 18:34 | disposition home health service (06) | DRG 308 ==
LOC: SUPCPDRO → ED 09:22 → SUATTDRO 11:19 → ICU 11:19 → 4N 03-12 12:38
PROVIDERS: ATTEND Internal Medicine